=== PATIENT | female | born 1955 ===

== ENCOUNTER 2020-10-27 16:15 | Outpatient (REF) | payer OTHER, SELFPAY ==
--- NOTE | ~2020-10-27 | MM_ITS ---
EXAMINATION: MM SCREENING DIGITAL BREAST TOMOSYNTHESIS, BILATERAL CLINICAL INFORMATION: Screening. Asymptomatic. No known family history breast cancer. Age 65. Prior mammography over 25 years ago and no longer available. The lifetime risk of breast cancer based on the Tyrer-Cuzick Model is 3%. COMPARISON: None (current study represents new baseline exam). TECHNIQUE: Digital breast tomosynthesis is performed in both the craniocaudal and mediolateral oblique views along with computer-aided detection (CAD). Synthesized 2D images are generated from the tomosynthesis. FINDINGS: There are scattered areas of fibroglandular density (ACR BI-RADS breast composition Category b). There are no significant masses, abnormal calcifications, or other abnormalities. The axilla and skin contours are unremarkable. MM/MM tomosynthesis screening BI IMPRESSION: No mammographic evidence of malignancy. ASSESSMENT: BI-RADS 1: Negative RECOMMENDATION: Routine annual mammography screening. This patient's information was entered into a reminder system with a target due date for their next mammogram.
== END 2020-10-27 16:16 | disposition home or self-care (01) ==
LOC: HO.MAMMO 16:15
PROVIDERS: Visit Provider Internal Medicine
DX: Z12.31 Encounter for screening mammogram for malignant neoplasm of breast (principal)
CPT/HCPCS: 77063; 77067

== ENCOUNTER 2023-09-30 18:20 | Emergency (ER) | payer MEDICARE, SELFPAY ==
[2023-09-30 18:28] VITALS: BP 163/94; PULSE 118; RESP 16; TEMP 36.6; O2SAT 97; BMI 19.8
--- NOTE | 2023-09-30 18:28 | ED.GENADULT ---
HPI - General Adult General Chief complaint: General Medical Stated complaint: shaking,high Bp Time Seen by Provider: 09/30/23 22:03 History of Present Illness HPI narrative: The patient is a 68-year-old female with a history of Alzheimer's dementia. Today she seemed very anxious and at 1 point was shaking. She was also having hallucinations that her daughter was planning to hire someone to have her killed. Her blood pressure was checked and her systolic was 180. She asked to come to the hospital. Since she has been here she has been feeling much better. When I spoke to her she acknowledges that she was having hallucination when she was thinking that her daughter might be trying to arrange killing her. She has had no fever. No cough. She does not have any definite urinary symptoms. No abdominal pain. No nausea or vomiting. Related Data Previous Rx's ?Medication ?Instructions ?Recorded cephalexin 500 mg capsule 500 mg PO BID #10 caps 09/30/23 Allergies Allergy/AdvReac Type Severity Reaction Status Date / Time codeine Allergy Unknown Verified 09/30/23 18:29 Review of Systems Review of Systems: Yes all other systems are reviewed and are negative [facility] Social History Social History Smoked in Last 30 Days: No Use of substances other than those prescribed or required for medical reasons: No Advance Directives: No Advance Directives Information Provided: No Physical Exam ED Vital Signs: Vital Signs - 24 hr 09/30/23 18:28 09/30/23 21:22 09/30/23 22:49 Temperature 97.9 F 98.2 F Pulse Rate 118 H 109 H 99 Respiratory Rate 16 18 18 Blood Pressure 163/94 H 157/87 H 159/89 H Pulse Oximetry 97 98 98 Oxygen Delivery Method Room Air BMI result Body Mass Index 19.8 Const Other: The patient is awake and alert. She has a very healthy general appearance. She does not seem in any distress or acutely ill. HENMT Other: Face is symmetrical, mucous membranes moist Eyes Other: Pupils are round equal, conjunctivae clear Neck Other: No cervical adenopathy, no JVD Resp Effort & Inspection: normal respiratory effort Auscultation: clear to auscultation bilaterally Cardio Rate: regular rate Rhythm: regular rhythm Heart sounds: S1 normal heart sound present and S2 normal heart sound present GI Other: Abdomen is soft and nontender Skin Other: Skin is dry and unremarkable Neuro Other: The patient is awake and alert, face is symmetrical, eye movements intact, speech is clear, she moves her extremities normally. She has no focal findings. Extrem Other: No peripheral edema. Excellent pulses in the feet. Course Course Course Narrative: This is an RME: Additional HPI, ROS, PE not included below will be deferred to primary provider. Patient is a 68-year-old female presenting to emergency department for evaluation of feeling shaky, nausea, elevated blood pressure, palpitations, sudden onset upon awakening this morning. Feeling unsteady on her feet. Daughter reports that she has a history Alzheimer's, and has newly been experiencing hallucinations this week. Plan: Labs, EKG, orthostatic vital signs, urinalysis Medications Administered Discontinued Medications Generic Name Dose Route Start Last Admin Trade Name Freq PRN Reason Stop Dose Admin Cephalexin HCl 500 mg 09/30/23 22:20 09/30/23 22:41 Cephalexin 500 Mg Capsule PO 09/30/23 22:21 500 mg ONCE ONE Administration Medical Decision Making Medical Decision Making MDM Narrative: The patient is a 68-year-old woman with a history of Alzheimer's. Today she was apparently feeling dizzy, shaky, and nauseated. These symptoms seemed to have resolved and she looks entirely well here in the emergency department. She has apparently also had some hallucinations. Currently she does not seem to have any hallucinations in the emergency department and she seems to acknowledge that the hallucinations she has been experiencing earlier were in fact not real. Her medical workup in the emergency department is reassuring although her urinalysis is equivocal for a possible UTI. Since the patient has dementia and is not necessarily the world's most reliable historian I am not sure that her denial of urinary symptoms is reliable and will therefore treat her with cephalexin. The is at the bedside and seems comfortable with the plan. He seems comfortable taking her home. They should follow up with her PCP. Lab Data 09/30/23 18:40 09/30/23 18:40 Labs: Lab Results 09/30/23 Range/Units 18:40 WBC 8.1 (4.8-10.8) X10*3/uL RBC 4.68 (4.20-5.50) X10*6/uL Hgb 13.8 (12.0-16.0) g/dl Hct 41.8 (37.0-47.0) % MCV 89.3 (80.0-98.0) fL MCH 29.5 (27.0-33.0) pg MCHC 33.0 (31.0-35.0) g/dl RDW 12.6 (11.0-16.0) % Plt Count 413 H (160-400) X10*3/uL MPV 8.6 L (9.4-12.3) fL Immature Gran % (Auto) 0.2 (0.0-0.4) % Neut % (Auto) 59.5 (45-73) % Lymph % (Auto) 31.8 (20-40) % [place] % (Auto) 7.0 (2-11) % Eos % (Auto) 0.5 (0-4) % Baso % (Auto) 1.0 (0-2) % Lymph # (Auto) 2.6 (1.2-4.9) X10*3/uL [place] # (Auto) 0.6 (0.1-1.2) X10*3/uL Eos # (Auto) 0.0 (0.0-0.4) X10*3/uL Baso # (Auto) 0.1 (0.0-0.2) X10*3/uL Abs Immat Gran (auto) 0.02 (0.00-0.03) X10*3/uL Absolute Neuts (auto) 4.8 (2.0-8.3) x10*3/uL Absolute Nucleated RBC 0.000 (0.0-0.012) X10*3/uL Nucleated RBC % (auto) 0.0 (0.0-0.2) /100WBC Sodium 142 (135-145) mmol/L Potassium 3.9 (3.3-5.1) mmol/L Chloride 104 (96-108) mmol/L Carbon Dioxide 27 (22-29) mmol/L Anion Gap 15 (12-20) BUN 12 (9-16) mg/dL Creatinine 0.81 (0.5-1.4) mg/dL Estim Creat Clear Calc 46.4 Estimated GFR > 60 Random Glucose 166 H (60-115) mg/dL Calcium 9.6 (8.4-10.2) mg/dL Magnesium 2.1 (1.6-2.6) mg/dL Total Bilirubin 0.4 (0.0-1.0) mg/dL AST 18 (5-31) U/L ALT 12 (0-31) U/L Alkaline Phosphatase 94 (39-117) U/L Troponin I High Sens < 2.7 (<3.5-17.0) ng/L Total Protein 7.7 (6.5-8.0) g/dL Albumin 4.3 (3.5-5.0) g/dL Urine Color Dark Yellow Urine Appearance Clear Urine pH 5.5 (5.0-9.0) Ur Specific [place] >= 1.030 H (1.005-1.025) Urine Protein Trace (Neg-Trace) mg/dL Urine Glucose (UA) Negative (Negative) mg/dL Urine Ketones Negative (Negative) mg/dL Urine Blood Moderate (2+) H (Negative) Urine Nitrite Negative (Negative) Ur Leukocyte Esterase Trace H (Negative) Urine RBC >20 H (0-2) /HPF Urine WBC 11-20 H (0-5) /HPF Ur Squamous Epith Cells 0-2 (0-2) /HPF Urine Bacteria None Seen (None Seen) Hyaline Casts 0-2 (0-2) /LPF Influenza Type A (PCR) NEGATIVE (Negative) Influenza Type B (PCR) NEGATIVE (Negative) RSV RNA Qual (PCR) NEGATIVE (Negative) SARS-CoV-2 RNA (RT-PCR) NEGATIVE (Negative) Discharge Plan Discharge Clinical Impression: Shakiness, Hallucinations, Abnormal urinalysis Patient Disposition: Home, Self-Care Additional Instructions: Your testing in the emergency room today is reassuring from the point of view of any obviously dangerous process. Your urine test suggest the possibility that you might have a urinary tract infection. You have therefore been started on an antibiotic, cephalexin. Please take this antibiotic 2 times a day, approximately every 12 hours, for 5 days. Please follow-up soon with your regular doctor. Return to the emergency room if worse. Prescriptions: New cephalexin 500 mg capsule 500 mg PO BID Qty: 10 0RF Referrals: Chula Chand MD [Primary Care Provider] - (Hallucinations, possible UTI) Interventions: ED Discharge Assessment Last Done: 09/30/23 22:49 Discharge Date/Time: 09/30/23 22:50 Print Language: [place]an
[2023-09-30 18:46] LABS: MANUAL DIFF FLAG NO
[2023-09-30 18:49] LABS: Appearance Urine Clear; Color Urine Dark Yellow; Glucose Urine UA Negative (Negative); Leukocyte Esterase Urine Trace (Negative); Nitrite Urine Negative (Negative); PH 5.5 (5.0-9.0); Specific Gravity - Urine >= 1.030 (1.005-1.025); UMIC TRIGGER UACC YES; Urine Blood Moderate (2+) (Negative); Urine Ketones Negative (Negative); Urine Protein Trace mg/dL (Neg-Trace)
[2023-09-30 18:52] LABS: Basophils Absolute Auto 0.1 X10*3/uL (0.0-0.2); Eosinophils Percent Auto 0.5 % (0-4); Hematocrit 41.8 % (37.0-47.0); Hemoglobin 13.8 g/dl (12.0-16.0); Imm Gran Abs Auto 0.02 X10*3/uL (0.00-0.03); Imm Gran Pct Auto 0.2 % (0.0-0.4); Lymphocytes Absolute Auto 2.6 X10*3/uL (1.2-4.9); Lymphocytes Percent Auto 31.8 % (20-40); Mean Corpuscular Hemoglobin 29.5 pg (27.0-33.0); Mean Corpuscular Volume 89.3 fL (80.0-98.0); Mean Platelet Volume 8.6 fL (9.4-12.3); Monocytes Absolute Auto 0.6 X10*3/uL (0.1-1.2); Neutrophils Absolute Auto 4.8 x10*3/uL (2.0-8.3); Neutrophils Percent Auto 59.5 % (45-73); Platelet Count 413 X10*3/uL (160-400); Red Blood Count 4.68 X10*6/uL (4.20-5.50); Red Cell Distribution Width 12.6 % (11.0-16.0); White Blood Count 8.1 X10*3/uL (4.8-10.8)
[2023-09-30 18:54] LABS: Bacteria Urine None Seen (None Seen); Hyaline Casts Urine 0-2 /LPF (0-2); RBC Urine >20 /HPF (0-2); Squamous Epithelial Cell Urine 0-2 /HPF (0-2); UACC Culture Trigger YES
[2023-09-30 19:06] LABS: Alanine Aminotransferase 12 U/L (0-31); Albumin Level 4.3 g/dL (3.5-5.0); Alkaline Phosphatase 94 U/L (39-117); Anion Gap 15 (12-20); Aspartate Amino Transferase 18 U/L (5-31); Bilirubin Total 0.4 mg/dL (0.0-1.0); Blood Urea Nitrogen 12 mg/dL (9-16); Calcium 9.6 mg/dL (8.4-10.2); Carbon Dioxide 27 mmol/L (22-29); Chloride 104 mmol/L (96-108); Creatinine Clr Calc Pharmacy 46.4; Estimated Glomerular Filt Rate > 60; Glucose Random 166 mg/dL (60-115); Magnesium 2.1 mg/dL (1.6-2.6); Potassium 3.9 mmol/L (3.3-5.1); Sodium 142 mmol/L (135-145); Total Protein 7.7 g/dL (6.5-8.0)
[2023-09-30 19:15] LABS: Troponin-I High Sensitivity < 2.7 ng/L (<3.5-17.0)
[2023-09-30 19:27] LABS: Influenza A PCR NEGATIVE (Negative); Influenza B PCR NEGATIVE (Negative); Resp Syncy Virus RNA Qual PCR NEGATIVE (Negative); SARS COV2 PCR INHOUSE NEGATIVE (Negative)
[2023-09-30 21:22] VITALS: BP 157/87; PULSE 109; RESP 18; O2SAT 98
[2023-09-30] MEDS: cephALEXin 500 MG CAPSULE PO (22:41)
[2023-09-30 22:49] VITALS: BP 159/89; PULSE 99; RESP 18; TEMP 36.8; O2SAT 98
== END 2023-09-30 22:50 | disposition home or self-care (01) ==
PROVIDERS: Nurse Practitioner Family; Emergency Provider Emergency Medicine; PCP Internal Medicine
DX: G25.89 Other specified extrapyramidal and movement disorders (principal); R44.3 Hallucinations, unspecified; R82.90 Unspecified abnormal findings in urine; G30.9 Alzheimer's disease, unspecified; F02.80 Dementia in other diseases classified elsewhere, unspecified severity, without behavioral disturbance, psychotic disturbance, mood disturbance, and anxiety; Z03.818 Encounter for observation for suspected exposure to other biological agents ruled out
CPT/HCPCS: 0241U; 80053; 81001; 83735; 84484; 85025; 87086; 99283; 99284

== ENCOUNTER 2023-10-31 14:15 | Outpatient (AMB) | payer MEDICARE, SELFPAY ==
--- NOTE | 2023-10-31 14:49 | MHC.PC.OV ---
Intake Visit Reasons: Establish care/ Discharge F/U Intake Note: New patient visit. Dipak Scott Visiting nurse referral. Licensed Optician Required: No Accompanied by: Daughter Allergies codeine Allergy (Verified 10/31/23 14:50) Unknown Tobacco use date assessed: 10/31/23 Fall risk assessment: 1 Fall in past year Last assessed Fall Risk: 10/31/23 Dental Screening Dental Screen Date: 10/31/23 Did you have a dental visit in the last 12 months?: No Did you have a dental problem in the last 6 months where you did not have access to dental care?: No Was dental information given to patient?: Yes PFSH Family History (Updated 10/31/23 @ 14:57 by Nasrin Christy CMA) Mother Alzheimer's dementia Sister Alzheimer's dementia Other FH: mental illness Substance abuse Assessment and Plan Assessment & Plan Medications: Discontinued cephalexin Discontinued Reason: Patient Completed Course 500 mg PO BID 10 caps 0RF Coding
[2023-10-31 14:58] VITALS: BP 118/68; PULSE 78; RESP 16; TEMP 36.9; O2SAT 98; BMI 21.0
--- NOTE | 2023-10-31 14:58 | MHC.PC.OV ---
Vital Signs 10/31/23 14:58 Height 5 ft Weight 107 lb 8 oz BMI 21.0 BP 118/68 Blood Pressure Location Lt brachial Position Sitting Respiration 16 Pulse 78 Pulse Source Pulse Oximeter Temp 98.4 F Temp Source Oral Pulse Oximetry (%) 98 Oxygen Delivery Method Room Air Intake Visit Reasons: Establish care/ Discharge F/U Intake Note: New patient visit. Restorative Care Technician Required: No Accompanied by: Daughter Allergies codeine Allergy (Verified 10/31/23 14:50) Unknown Medication List - Last Reconciled 10/31/23 by Magdalena Mcmillan MD benztropine 0.5 mg PO DAILY escitalopram oxalate 10 mg PO DAILY olanzapine 20 mg PO DAILY trazodone 100 mg PO BEDTIME PRN Tobacco use date assessed: 10/31/23 Fall risk assessment: 1 Fall in past year Last assessed Fall Risk: 10/31/23 Dental Screening Dental Screen Date: 10/31/23 Did you have a dental visit in the last 12 months?: No Did you have a dental problem in the last 6 months where you did not have access to dental care?: No Was dental information given to patient?: Yes HPI HPI Comments History of Present Illness Details The patient is a 68 year old female with past medical histor of Alzheimer's presenting to establish care and for ER follow up She was evaluated in [facility] ED on 09/30/23. She presented c/o dizzy, shaky, and nauseated. Did endorse some recent hallucinations Her medical workup in the emergency department-UA possible UTI placed on cephalexin. Discharged to [facility]. Discharged 10/28 -on lexapro, zyprexa, trazodone and cogentin. Has follow up with [facility] 11/19/2023 for psych med provider. Reports doing well but sleepy. Denies recurrent UTI symptoms. [facility] Medical History (Updated 11/04/23 @ 11:49 by Magdalena Mcmillan MD) Alzheimer's dementia Depression Anxiety Family History (Updated 10/31/23 @ 16:41 by Nasrin Christy CMA) Mother Alzheimer's dementia HTN (hypertension) Sister Alzheimer's dementia Father Cardiovascular disease Other FH: mental illness Substance abuse Social History (Updated 10/31/23 @ 14:56 by Nasrin Christy CMA) Housing: House Patient Tobacco Use Status: Never used Tobacco e-Cigarette/Vaping Use: Never Used Second Hand Smoke Exposure: No service: No Current occupational status: retired Cognitive needs: Yes (Alzheimers) Hearing needs: No Vision needs: Yes Questionnaire PHQ-9 Over the last 2 weeks, how often have you been bothered by any of the following problems? 1. Little interest or pleasure in doing things: nearly every day 2. Feeling down, depressed, or hopeless: nearly every day 3. Trouble falling or staying asleep, or sleeping too much: nearly every day 4. Feeling tired or having little energy: nearly every day 5. Poor appetite or overeating: nearly every day 6. Feeling bad about yourself - or that you are a failure or have let yourself or your family down: nearly every day 7. Trouble concentrating on things, such as reading the newspaper or watching television: nearly every day 8. Moving or speaking so slowly that other people could have noticed. Or the opposite - being so fidgety or restless that you have been moving around a lot more than usual: nearly every day 9. Thoughts that you would be better off or of hurting yourself in some way: not at all Total score: 24 Depression Screening Interpretation: Positive Depression Screening Follow-up: Existing condition Depression Screening Done: Yes 56779 - PHQ-9 Billing: Yes Source: Developed by Drs. Rob Gresham, Maddie Dean, Leonard Javier and colleagues, with an educational darrian from [employer]. Thrive Questionnaire Date Thrive assessed: 10/31/23 I am a: Patient What is your living situation today?: I have a steady place to live Within the past 12 months, did the food you bought not last and you didn't have the money to get more?: Never true Within the past 12 months, did you worry whether your food would run out before you got money to buy more?: Never true Do you have trouble paying for medicines?: No Do you have trouble getting transportation to medical appointments?: No Do you have trouble paying your heating and electricity bill?: No Do you have trouble taking care of your child, family member or friend?: No Do you have trouble with day-to-day activities such as bathing, preparing meals, shopping, managing finances, etc.?: Yes Are you currently unemployed and looking for a job?: No Are you interested in more education?: No Please select the resources that you would like help with: Daily support Currently or been in a relationship where the following occur: no concerns reported THRIVE Score: 0 FEDERICO-7 AMB Questionnaire FEDERICO-7 Date FEDERICO - 7 assessed: 10/31/23 Feeling nervous, anxious, or on edge: 3 = Nearly every day Not being able to stop or control worryin = Nearly every day Worrying too much about different things: 3 = Nearly every day Trouble relaxin = Nearly every day Being so restless that it is hard to sit still: 3 = Nearly every day Becoming easily annoyed or irritable: 3 = Nearly every day Feeling afraid as if something awful might happen: 3 = Nearly every day Total FEDERICO-7 score (0-4 normal; 5-9 mild; 10-14 moderate; 15-21 severe): 21 Source: Developed by Drs. Rob Gresham, Maddie Dean, Leonard Javier and colleagues, with an educational darrian from [employer]. FEDERICO-7 Assessment Billing FEDERICO-7 Assessment Tool: FEDERICO-7 Assessment 55098 Review of Systems Const Details: see HPI Physical exam (Primary Care) Vital Signs: Last Vital Signs Temp 98.4 F 10/31/23 14:58 Pulse 78 10/31/23 14:58 Resp 16 10/31/23 14:58 BP 118/68 10/31/23 14:58 Pulse Ox 98 10/31/23 14:58 Oxygen Delivery Method Room Air 10/31/23 14:58 PHYSICAL EXAM: GENERAL: Alert and oriented x 3. NAD EYES: EOMI. Anicteric. HENT: Moist mucous membranes. No scleral icterus. No cervical lymphadenopathy. LUNGS: Clear to auscultation bilaterally. CARDIOVASCULAR: Regular rate and rhythm. No murmur. No JVD. ABDOMEN: Soft, non-tender +bs EXTREMITIES: No edema. Non-tender. SKIN: No rashes or lesions. Warm. NEUROLOGIC: No focal neurological deficits. CN II-XII grossly intact PSYCHIATRIC: Cooperative. Appropriate mood and affect BMI result Body Mass Index 21.0 Tobacco/Smoking Status: Tobacco use Status Tobacco use date assessed 10/31/23 10/31/23 15:06 Patient Tobacco Use Status Never used Tobacco 10/31/23 15:06 e-Cigarette/Vaping Use Never Used 10/31/23 15:06 PHQ-9: PHQ-9 Score PHQ-9: Total score 10/31/23 16:40 Depression Screening Interpretation: Positive Depression Screening Follow-up: Existing condition Thrive Assessment: Date of Thrive Assessment Date Thrive assessed 10/31/23 10/31/23 16:27 Currently or been in a relationship where the following occur: no concerns reported Const Other: PHYSICAL EXAM: GENERAL: Alert and oriented EYES: EOMI. Anicteric. HENT: Moist mucous membranes. . LUNGS: Clear to auscultation bilaterally. CARDIOVASCULAR: Regular rate and rhythm. ABDOMEN: Soft, non-tender +bs EXTREMITIES: No edema. Non-tender. SKIN: No rashes or lesions. Warm. NEUROLOGIC: No focal neurological deficits. PSYCHIATRIC: Cooperative. Results AMB Hemoglobin A1c AMB Hemoglobin A1c 5.3 % Last Edit by Nasrin Christy CMA on 10/31/23 16:35 Results Reviewed Results Reviewed: Laboratory Last Values Hgb A1c (Clinic) 5.3 % (4.0-6.0) 10/31/23 16:33 Assessment and Plan Assessment & Plan (1) Dementia: Comment: stable. continue current meds. May consider aricept Code(s): F03.90 - Unspecified dementia, unspecified severity, without behavioral disturbance, psychotic disturbance, mood disturbance, and anxiety Qualifiers: Alzheimer's disease onset: late onset Dementia behavioral or psychological symptom: unspecified whether behavioral, psychotic, or mood disturbance or anxiety Dementia severity: unspecified severity Dementia type: Alzheimer's Qualified Code(s): G30.1 - Alzheimer's disease with late onset; F02.80 - Dementia in other diseases classified elsewhere, unspecified severity, without behavioral disturbance, psychotic disturbance, mood disturbance, and anxiety (2) Depression, major, in partial remission: Code(s): F32.4 - Major depressive disorder, single episode, in partial remission Qualifiers: Major depression recurrence: recurrent Qualified Code(s): F33.41 - Major depressive disorder, recurrent, in partial remission (3) Psychosis: Code(s): F29 - Unspecified psychosis not due to a substance or known physiological condition Qualifiers: Psychosis type: brief psychotic disorder Qualified Code(s): F23 - Brief psychotic disorder (4) Elevated glucose: Code(s): R73.09 - Other abnormal glucose (5) Prediabetes: Code(s): R73.03 - Prediabetes Plan: monitor labs. Orders: Orders AMB Hemoglobin A1c 10/31/23 R73.03 - Prediabetes Referrals Neurology Referral F02.80 - Dementia in other diseases classified elsewhere, unspecified severity, without behavioral disturbance, psychotic disturbance, mood disturbance, and anxiety, F29 - Unspecified psychosis not due to a substance or known physiological condition, F32.4 - Major depressive disorder, single episode, in partial remission, G30.1 - Alzheimer's disease with late onset Medications: New benztropine 0.5 mg PO DAILY 90 tabs 3RF Discontinued cephalexin Discontinued Reason: Patient Completed Course 500 mg PO BID 10 caps 0RF Coding Level of Care Code Tele New Pt Level 4 (05231) Complex EM visit Add On G2211 Diagnoses Late onset Alzheimer dementia, unspecified dementia severity, unspecified whether behavioral, psychotic, or mood disturbance or anxiety G30.1; F02.80 Alzheimer's disease onset: late onset Dementia behavioral or psychological symptom: unspecified whether behavioral, psychotic, or mood disturbance or anxiety Dementia severity: unspecified severity Dementia type: Alzheimer's Recurrent major depressive disorder, in partial remission F33.41 Major depression recurrence: recurrent 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
== END 2023-10-31 15:42 | disposition home or self-care (01) ==
PROVIDERS: PCP Internal Medicine; Visit Provider Internal Medicine
DX: G30.1 Alzheimer's disease with late onset (principal); F02.80 Dementia in other diseases classified elsewhere, unspecified severity, without behavioral disturbance, psychotic disturbance, mood disturbance, and anxiety; F33.41 Major depressive disorder, recurrent, in partial remission; F23 Brief psychotic disorder; R73.09 Other abnormal glucose; R73.03 Prediabetes
CPT/HCPCS: 83036; 99204; G2211

== ENCOUNTER 2023-12-05 12:29 | Outpatient (AMB) | payer MEDICARE, SELFPAY ==
--- NOTE | 2023-12-05 12:37 | MHC.PC.OV ---
Vital Signs 12/05/23 12:47 Weight 114 lb 8 oz BP 118/70 Blood Pressure Location Rt brachial Position Sitting Pulse 85 Pulse Source Pulse Oximeter Pulse Oximetry (%) 98 Oxygen Delivery Method Room Air Intake Visit Reasons: est/ uti Intake Note: patient here c/o UTI. Supervisor Phosphatic Fertilizer Required: No Accompanied by: Daughter Allergies codeine Allergy (Verified 12/05/23 12:45) Unknown Medication List - Last Reconciled 12/05/23 by Georgia Sandoval PA-C benztropine 0.5 mg PO DAILY escitalopram oxalate 10 mg PO DAILY olanzapine 20 mg PO DAILY trazodone 100 mg PO BEDTIME PRN Tobacco use date assessed: 10/31/23 Dental Screening Dental Screen Date: 10/31/23 HPI est/ uti HPI Details Patient is a 68-year-old female with a significant past medical history of dementia, anxiety and depression with hallucinations presenting today for a possible UTI. She is accompanied today by her daughter who states that she believes her mother has a UTI. Her auditory hallucinations have been worse recently. She is asymptomatic otherwise. Patient often forgets to drink enough water. Her medications are unchanged currently and she has been overall stable since her hospitalization this spring. No fever, chills or flank pain. No abdominal pain, nausea or vomiting. No change in appetite. Daughter did not at home tests and states that no looked like she had a UTI. [facility] Medical History (Updated 11/04/23 @ 11:49 by Magdalena Mcmillan MD) Alzheimer's dementia Depression Anxiety Family History (Updated 10/31/23 @ 16:41 by Nasrin Christy CMA) Mother Alzheimer's dementia HTN (hypertension) Sister Alzheimer's dementia Father Cardiovascular disease Other FH: mental illness Substance abuse Social History (Updated 10/31/23 @ 14:56 by Nasrin Christy CMA) Housing: House Patient Tobacco Use Status: Never used Tobacco e-Cigarette/Vaping Use: Never Used Second Hand Smoke Exposure: No service: No Current occupational status: retired Cognitive needs: Yes (Alzheimers) Hearing needs: No Vision needs: Yes Questionnaire Thrive Questionnaire Date Thrive assessed: 10/31/23 FEDERICO-7 AMB Questionnaire FEDERICO-7 Date FEDERICO - 7 assessed: 10/31/23 Source: Developed by Drs. Rob Gresham, Maddie Dean, Leonard Javier and colleagues, with an educational darrian from [employer]. Physical exam (Primary Care) Vital Signs: Last Vital Signs Pulse 85 12/05/23 12:47 BP 118/70 12/05/23 12:47 Pulse Ox 98 12/05/23 12:47 Oxygen Delivery Method Room Air 12/05/23 12:47 Tobacco/Smoking Status: Tobacco use Status Tobacco use date assessed 10/31/23 12/05/23 12:41 Patient Tobacco Use Status Never used Tobacco 12/05/23 12:41 e-Cigarette/Vaping Use Never Used 12/05/23 12:41 Thrive Assessment: Date of Thrive Assessment Date Thrive assessed 10/31/23 12/05/23 12:41 HENMT Ears: hearing grossly normal bilaterally Neck Thyroid: Thyroid normal Lymphatic: no lymphadenopathy noted Resp Auscultation: clear to auscultation bilaterally Cardio Rate: regular rate Rhythm: regular rhythm Heart sounds: S1 normal heart sound present and S2 normal heart sound present GI Inspection: Yes normal to inspection Palpation (GI): Soft to palpation and Other GI palpation findings present (nontender, no cva tenderness) Auscultation: normoactive bowel sounds Rectal Exam - Female: deferred Skin General skin exam: no rashes or lesions noted Assessment and Plan Assessment & Plan (1) Dementia: Comment: stable. continue current meds. May consider aricept Code(s): F03.90 - Unspecified dementia, unspecified severity, without behavioral disturbance, psychotic disturbance, mood disturbance, and anxiety Qualifiers: Dementia type: Alzheimer's Alzheimer's disease onset: late onset Dementia severity: unspecified severity Dementia behavioral or psychological symptom: unspecified whether behavioral, psychotic, or mood disturbance or anxiety Qualified Code(s): G30.1 - Alzheimer's disease with late onset; F02.80 - Dementia in other diseases classified elsewhere, unspecified severity, without behavioral disturbance, psychotic disturbance, mood disturbance, and anxiety (2) UTI (urinary tract infection): Code(s): N39.0 - Urinary tract infection, site not specified Plan: Urine dip in office is consistent with a UTI. We will start Macrobid. Discussed risks and benefits and adverse effects of this medication. They will follow up if anything worsens or changes. Culture ordered. Patient understands and agrees with the plan. Orders: Orders Urine Culture Today N39.0 - Urinary tract infection, site not specified Medications: New nitrofurantoin monohyd/m-cryst 100 mg (Macrobid) must administer with a meal/food 100 mg PO Q12H 7 days 14 caps 0RF Coding Level of Care Code Est Pt Level 4 (20105) Diagnoses Late onset Alzheimer dementia, unspecified dementia severity, unspecified whether behavioral, psychotic, or mood disturbance or anxiety G30.1; F02.80 Dementia type: Alzheimer's Alzheimer's disease onset: late onset Dementia severity: unspecified severity Dementia behavioral or psychological symptom: unspecified whether behavioral, psychotic, or mood disturbance or anxiety UTI (urinary tract infection) N39.0
[2023-12-05 12:47] VITALS: BP 118/70; PULSE 85; O2SAT 98
== END 2023-12-05 13:11 | disposition home or self-care (01) ==
PROVIDERS: PCP Internal Medicine; Visit Provider Physician Assistant
DX: G30.1 Alzheimer's disease with late onset (principal); F02.80 Dementia in other diseases classified elsewhere, unspecified severity, without behavioral disturbance, psychotic disturbance, mood disturbance, and anxiety; N39.0 Urinary tract infection, site not specified
CPT/HCPCS: 81002; 99214

== ENCOUNTER 2023-12-05 18:45 | Outpatient (REF) | payer MEDICARE, SELFPAY | END 2023-12-05 18:46 | disposition home or self-care (01) | LOC: HO.LNP 18:45 | PROVIDERS: Visit Provider Physician Assistant | DX: N39.0 Urinary tract infection, site not specified (principal) | CPT/HCPCS: 87086 ==

== ENCOUNTER 2024-04-21 13:42 | Outpatient (AMB) | payer MEDICARE, SELFPAY ==
--- NOTE | 2024-04-21 14:01 | MHC.PC.OV ---
Vital Signs 04/21/24 14:04 Height 5 ft Weight 123 lb BMI 24.0 BP 116/78 Blood Pressure Location Lt brachial Position Sitting Pulse 96 Pulse Source Pulse Oximeter Temp 98.3 F Temp Source Oral Pulse Oximetry (%) 98 Oxygen Delivery Method Room Air Intake Visit Reasons: Urinary tract infection Intake Note: UTI. Has a UTI trish at home that came back positive. Has been having frequent uti's. Last was 03/13 and was presctibed Cefdinir 125 mg. Allergies codeine Allergy (Verified 05/07/24 12:10) Unknown Tobacco use date assessed: 10/31/23 Dental Screening Dental Screen Date: 10/31/23 HPI HPI Comments History of Present Illness Details The patient is a 69 year old female with past medical history of Alzheimer's presenting for dysuria She reports dysuria, increased frequency, urgency. She has had frequent UTIs. Complains of difficulty sleeping, depression. Experiencing ongoing memory issues. Says she is not seeing psych or neurology. [facility] [place]. She presented c/o dizzy, shaky, and nauseated. Did endorse some recent hallucinations Her medical workup in the emergency department-UA possible UTI placed on cephalexin. Discharged to [facility]. Discharged 10/28 -on lexapro, zyprexa, trazodone and cogentin. Has follow up with [facility] 11/19/2023 for psych med provider. ROS see HPI PHYSICAL EXAM: GENERAL: Alert and oriented x 3. NAD EYES: EOMI. Anicteric. HENT: Moist mucous membranes. No scleral icterus. No cervical lymphadenopathy. LUNGS: Clear to auscultation bilaterally. CARDIOVASCULAR: Regular rate and rhythm. No murmur. No JVD. ABDOMEN: Soft, non-tender +bs EXTREMITIES: No edema. Non-tender. SKIN: No rashes or lesions. Warm. NEUROLOGIC: Oriented to place situation, but some cognitive dysfunction is apparent PSYCHIATRIC: Cooperative. Appropriate mood and affect [facility] Medical History (Updated 05/07/24 @ 13:19 by Gorge Fischer) Alzheimer's dementia Depression Anxiety Family History (Updated 10/31/23 @ 16:41 by Nasrin Christy [facility]) Mother Alzheimer's dementia HTN (hypertension) Sister Alzheimer's dementia Father Cardiovascular disease Other FH: mental illness Substance abuse Social History (Updated 10/31/23 @ 14:56 by Nasrin Christy CMA) Housing: House Patient Tobacco Use Status: Never used Tobacco e-Cigarette/Vaping Use: Never Used Second Hand Smoke Exposure: No service: No Current occupational status: retired Cognitive needs: Yes (Alzheimers) Hearing needs: No Vision needs: Yes Questionnaire Thrive Questionnaire Date Thrive assessed: 10/31/23 I am a: Patient What is your living situation today?: I have a steady place to live Within the past 12 months, did the food you bought not last and you didn't have the money to get more?: I choose not to answer this question Within the past 12 months, did you worry whether your food would run out before you got money to buy more?: I choose not to answer this question Do you have trouble paying for medicines?: I choose not to answer this question Do you have trouble getting transportation to medical appointments?: I choose not to answer this question Do you have trouble paying your heating and electricity bill?: I choose not to answer this question Do you have trouble taking care of your child, family member or friend?: I choose not to answer this question Do you have trouble with day-to-day activities such as bathing, preparing meals, shopping, managing finances, etc.?: I choose not to answer this question Are you currently unemployed and looking for a job?: I choose not to answer this question Are you interested in more education?: I choose not to answer this question Please select the resources that you would like help with: Care for elder or disabled and Daily support Currently or been in a relationship where the following occur: I choose not to answer THRIVE Score: 0 AUDIT C Alcohol Use Questionnaire (AUDIT-C) 1. How often do you have a drink containing alcohol?: Never Total Score: 0 FEDERICO-7 AMB Questionnaire FEDERICO-7 Date FEDERICO - 7 assessed: 10/31/23 Feeling nervous, anxious, or on edge: 1 = Several days Not being able to stop or control worryin = Several days Worrying too much about different things: 1 = Several days Trouble relaxin = Several days Being so restless that it is hard to sit still: 1 = Several days Becoming easily annoyed or irritable: 1 = Several days Feeling afraid as if something awful might happen: 1 = Several days Total FEDERICO-7 score (0-4 normal; 5-9 mild; 10-14 moderate; 15-21 severe): 7 Source: Developed by Drs. Rob Gresham, Maddie Dean, Leonard Javier and colleagues, with an educational darrian from [employer]. Physical exam (Primary Care) Vital Signs: Last Vital Signs Temp 98.3 F 04/21/24 14:04 Pulse 96 04/21/24 14:04 BP 116/78 04/21/24 14:04 Pulse Ox 98 04/21/24 14:04 Oxygen Delivery Method Room Air 04/21/24 14:04 BMI result Body Mass Index 24.0 Tobacco/Smoking Status: Tobacco use Status Tobacco use date assessed 10/31/23 04/21/24 14:05 Patient Tobacco Use Status Never used Tobacco 04/21/24 14:05 e-Cigarette/Vaping Use Never Used 04/21/24 14:05 Thrive Assessment: Date of Thrive Assessment Date Thrive assessed 10/31/23 04/21/24 14:05 Currently or been in a relationship where the following occur: I choose not to answer Coding Level of Care Code Est Pt Level 4 (21890) Diagnoses Recurrent UTI N39.0 Recurrent major depressive disorder, in partial remission F33.41 Major depression recurrence: recurrent Late onset Alzheimer dementia, unspecified dementia severity, unspecified whether behavioral, psychotic, or mood disturbance or anxiety G30.1; F02.80 Dementia type: Alzheimer's Alzheimer's disease onset: late onset Dementia severity: unspecified severity Dementia behavioral or psychological symptom: unspecified whether behavioral, psychotic, or mood disturbance or anxiety Assessment & Plan Assessment & Plan (1) Recurrent UTI: Code(s): N39.0 - Urinary tract infection, site not specified Category: Medical Plan: Patient unable to produce urine sample as she suffered some incontinence in the waiting room. Cephalexin ordered Patient has a referral to urology iin place (2) Depression, major, in partial remission: Code(s): F32.4 - Major depressive disorder, single episode, in partial remission Category: Medical Qualifiers: Major depression recurrence: recurrent Qualified Code(s): F33.41 - Major depressive disorder, recurrent, in partial remission Plan: Continue current medications Unclear if current has psych provider (3) Dementia: Comment: stable. continue current meds. May consider aricept Code(s): F03.90 - Unspecified dementia, unspecified severity, without behavioral disturbance, psychotic disturbance, mood disturbance, and anxiety Category: Medical Qualifiers: Dementia type: Alzheimer's Alzheimer's disease onset: late onset Dementia severity: unspecified severity Dementia behavioral or psychological symptom: unspecified whether behavioral, psychotic, or mood disturbance or anxiety Qualified Code(s): G30.1 - Alzheimer's disease with late onset; F02.80 - Dementia in other diseases classified elsewhere, unspecified severity, without behavioral disturbance, psychotic disturbance, mood disturbance, and anxiety Plan: Referral to neurology placed Continue current medications Medications: New cephalexin 500 mg (10 mL) PO QID 280 mL 0RF 7 days
[2024-04-21 14:04] VITALS: BP 116/78; PULSE 96; TEMP 36.8; O2SAT 98; BMI 24.0
== END 2024-04-21 14:29 | disposition home or self-care (01) ==
LOC: HO.HMCFM 13:52
PROVIDERS: PCP Internal Medicine; Visit Provider Internal Medicine
DX: N39.0 Urinary tract infection, site not specified (principal); F33.41 Major depressive disorder, recurrent, in partial remission; G30.1 Alzheimer's disease with late onset; F02.80 Dementia in other diseases classified elsewhere, unspecified severity, without behavioral disturbance, psychotic disturbance, mood disturbance, and anxiety

== ENCOUNTER → 2024-04-21 13:42 | Outpatient (BNVA) | payer MEDICARE, SELFPAY | PROVIDERS: PCP Internal Medicine; Visit Provider Internal Medicine | DX: N39.0 Urinary tract infection, site not specified (principal); F33.41 Major depressive disorder, recurrent, in partial remission; G30.1 Alzheimer's disease with late onset; F02.80 Dementia in other diseases classified elsewhere, unspecified severity, without behavioral disturbance, psychotic disturbance, mood disturbance, and anxiety | CPT/HCPCS: 99212 ==

== ENCOUNTER 2024-04-23 17:44 | Outpatient (REF) | payer MEDICARE, SELFPAY ==
[2024-04-23 18:26] LABS: Appearance Urine Clear; Color Urine Yellow; Glucose Urine UA Negative (Negative); Leukocyte Esterase Urine Moderate (2+) (Negative); Nitrite Urine Negative (Negative); PH 5.5 (5.0-9.0); Specific Gravity - Urine 1.015 (1.005-1.025); UMIC TRIGGER UACC YES; Urine Blood Small (1+) (Negative); Urine Ketones Negative (Negative); Urine Protein Negative (Neg-Trace)
[2024-04-23 18:35] LABS: Bacteria Urine Trace (None Seen); Hyaline Casts Urine 0-2 /LPF (0-2); RBC Urine 0-2 /HPF (0-2); Squamous Epithelial Cell Urine 0-2 /HPF (0-2); UACC Culture Trigger YES
== END 2024-04-23 17:45 | disposition home or self-care (01) ==
LOC: HO.HHCLNP 17:44
PROVIDERS: Visit Provider Internal Medicine
DX: R30.0 Dysuria (principal)
CPT/HCPCS: 81001; 87086

== ENCOUNTER 2024-05-07 11:34 | Outpatient (AMB) | payer MEDICARE, SELFPAY ==
--- NOTE | 2024-05-07 12:10 | A.OFFPC_ITS ---
Vital Signs 05/07/24 12:11 Height 5 ft Weight 125 lb 4 oz BMI 24.5 BP 106/66 Blood Pressure Location Rt brachial Position Sitting Respiration 16 Pulse 105 H Pulse Source Pulse Oximeter Temp 97.9 F Temp Source Oral Pulse Oximetry (%) 95 Oxygen Delivery Method Room Air Intake Visit Reasons: Extended exam Intake Note: Extended Exam Allergies codeine Allergy (Verified 05/07/24 12:10) Unknown Tobacco use date assessed: 10/31/23 Dental Screening Dental Screen Date: 10/31/23 HPI Extended exam HPI Details Patient ?of?Dr.?O'Pop?w/?history?of?Alzheimer's?dementia?and?recent?emergency?departmen t?visit?for?urinary?tract?infectionpresents?for?extended?exam. 69 y/o female presents for an extended e xam with f/u labs and health maintenance. No recent labs to review. Has not seen a urologist for recurrent UTIs. Notes UTI has started in September. They report worsened mental status changes. They also report tremors. Reports dry eyes. Reports difficulty swallowing. [facility] Medical History (Updated 05/07/24 @ 13:19 by Gorge Fischer) Alzheimer's dementia Depression Anxiety Family History (Updated 10/31/23 @ 16:41 by Nasrin Christy CMA) Mother Alzheimer's dementia HTN (hypertension) Sister Alzheimer's dementia Father Cardiovascular disease Other FH: mental illness Substance abuse Social History (Updated 10/31/23 @ 14:56 by Nasrin Christy CMA) Housing: House Patient Tobacco Use Status: Never used Tobacco e-Cigarette/Vaping Use: Never Used Second Hand Smoke Exposure: No service: No Current occupational status: retired Cognitive needs: Yes (Alzheimers) Hearing needs: No Vision needs: Yes Questionnaire Thrive Questionnaire Date Thrive assessed: 04/21/24 I am a: Patient What is your living situation today?: I have a steady place to live Within the past 12 months, did the food you bought not last and you didn't have the money to get more?: I choose not to answer this question Within the past 12 months, did you worry whether your food would run out before you got money to buy more?: I choose not to answer this question Do you have trouble paying for medicines?: I choose not to answer this question Do you have trouble getting transportation to medical appointments?: I choose not to answer this question Do you have trouble paying your heating and electricity bill?: I choose not to answer this question Do you have trouble taking care of your child, family member or friend?: I choose not to answer this question Do you have trouble with day-to-day activities such as bathing, preparing meals, shopping, managing finances, etc.?: I choose not to answer this question Are you currently unemployed and looking for a job?: I choose not to answer this question Are you interested in more education?: I choose not to answer this question Currently or been in a relationship where the following occur: I choose not to answer THRIVE Score: 0 FEDERICO-7 AMB Questionnaire FEDERICO-7 Date FEDERICO - 7 assessed: 10/31/23 Source: Developed by Drs. Rob Gresham, Maddie Dean, Leonard Javier and colleagues, with an educational darrian from [employer]. Review of Systems Const Denies chills, Denies fatigue, Denies fever(s), Denies headache(s) and Denies weakness Eyes Reports dry eyes ENT Reports dysphagia, Denies dizziness, Denies headache(s), Denies hearing loss, Denies nasal congestion, Denies sinus pain, Denies sinus pressure and Denies sore throat Card Denies chest pain, Denies lightheadedness, Denies dyspnea and Denies other (palpitations) Resp Denies cough, Denies dyspnea and Denies wheezing GI Denies abdominal pain, Denies melena, Denies hematochezia, Denies change in bowel habits, Reports dysphagia, Denies dyspepsia and Denies nausea Denies hematuria and Denies dysuria Musc Denies myalgias, Denies arthralgias, Denies numbness and Denies tingling Skin/Breast Denies rash, Denies unusual bruising and Denies wounds Neuro Details: Tremor Denies dizziness, Denies headache(s), Denies memory loss, Denies numbness, Denies Sensory deficit (Neuro), Denies tingling and Denies weakness Psych Denies anxiety, Denies depression and Denies memory loss Endo Denies cold intolerance, Denies fatigue, Denies heat intolerance, Denies polydipsia and Denies polyuria Rajiv/Lymph Denies easy bleeding and Denies easy bruising Aller/Immun Denies wheezing Physical exam (Primary Care) Vital Signs: Last Vital Signs Temp 97.9 F 05/07/24 12:11 Pulse 105 H 05/07/24 12:11 Resp 16 05/07/24 12:11 BP 106/66 05/07/24 12:11 Pulse Ox 95 05/07/24 12:11 Oxygen Delivery Method Room Air 05/07/24 12:11 BMI result Body Mass Index 24.5 Tobacco/Smoking Status: Tobacco use Status Tobacco use date assessed 10/31/23 05/07/24 12:16 Patient Tobacco Use Status Never used Tobacco 05/07/24 12:16 e-Cigarette/Vaping Use Never Used 05/07/24 12:16 Thrive Assessment: Date of Thrive Assessment Date Thrive assessed 04/21/24 05/07/24 12:16 Currently or been in a relationship where the following occur: I choose not to answer Const General: no acute distress, well developed, alert and awake Nutritional Appearance: well nourished Orientation/consciousness: No patient oriented x3 HENMT Head: Yes normocephalic and Yes atraumatic Ears: hearing grossly normal bilaterally and TM's normal bilaterally General nose exam: Normal external nose present and Normal nares present Mouth: Normal oral and palatal mucosa present and moist mucous membranes Teeth and gingiva: dentition normal Throat: Yes posterior oropharynx normal Eyes General: appearance normal, both eyes and all related structures Pupils: Equal, round and reactive pupils present and Pupil accommodation reflex normal EOM: EOMs intact bilaterally Neck Neck: Yes normal visual inspection, Yes no lymphadenopathy and Yes trachea midline Thyroid: Thyroid normal Carotids: no bruits Lymphatic: no lymphadenopathy noted Chest Chest palpation & inspection: normal inspection of the chest Resp Effort & Inspection: normal respiratory effort Auscultation: clear to auscultation bilaterally Cardio Rate: regular rate Rhythm: regular rhythm Heart sounds: S1 normal heart sound present, S2 normal heart sound present, no gallops, no murmurs and no rubs Bruits: no abdominal aortic bruits and no carotid bruits GI Palpation (GI): No Abdominal aortic bruit present, Soft to palpation, nontender, No hepatosplenomegaly present and No Rebound tenderness present Auscultation: normal bowel sounds General: Yes no CVA tenderness Back/Spine/Pelvis Back: no CVA tenderness Cervical Spine: cervical ROM normal and No Cervical spine tenderness Thoracic/Lumbar Spine: thoraco-lumbar ROM normal, No pain with thoraco-lumbar ROM, No thoracic spinal tenderness and No lumbar spinal tenderness Skin Lesions: no lesions Rashes: no rashes Trauma: no lacerations or abrasions Wounds: no wounds Nails: normal Neuro Other: Get up and go test about 12 seconds. Mild unsteadiness. Inability to reiterate no ifs ands or buts. Unablr General: No patient oriented x3 Cranial nerves: Yes Equal, round and reactive pupils present Cognition (Neuro): abnormal cognition Gait exam (Neuro): gait abnormal (mildly unsteady gait ) Motor exam (neuro): 5/5 motor strength present throughout Sensory Exam: No Sensory deficit (Neuro) Deep tendon reflexes (DTR's): Right patellar reflex intensity grade: 2+ and Left patellar reflex intensity grade: 2+ Extrem General: Yes normal to inspection and No edema Psych Other: Inability to reiterate no ifs ands or buts. Unable to recall any words on 3 words recall. Appearance: grossly normal Mental Status: mental status grossly abnormal Affect: No normal affect Attitude: cooperative Thought process: Normal thought process present Coding Level of Care Code Est Pt Level 4 (87385) Diagnoses Recurrent UTI N39.0 Late onset Alzheimer dementia, unspecified dementia severity, unspecified whether behavioral, psychotic, or mood disturbance or anxiety G30.1; F02.80 Alzheimer's disease onset: late onset Dementia behavioral or psychological symptom: unspecified whether behavioral, psychotic, or mood disturbance or anxiety Dementia severity: unspecified severity Dementia type: Alzheimer's Difficulty swallowing R13.10 Dry eyes H04.123 Screening for colon cancer Z12.11 Breast cancer screening by mammogram Z12.31 Unsteady gait R26.81 Adult general medical examination Z00.00 Assessment & Plan Assessment & Plan (1) Recurrent UTI: Code(s): N39.0 - Urinary tract infection, site not specified Category: Medical Plan: Increase?hydration Can?try?cranberry?capsules?for?decreased?incidence?of?UTIs Patient's?daughter?requests?referral?to?urology?which?I?have?made (2) Dementia: Comment: stable. continue current meds. May consider aricept Code(s): F03.90 - Unspecified dementia, unspecified severity, without behavioral disturbance, psychotic disturbance, mood disturbance, and anxiety Category: Medical Qualifiers: Alzheimer's disease onset: late onset Dementia behavioral or psychological symptom: unspecified whether behavioral, psychotic, or mood disturbance or anxiety Dementia severity: unspecified severity Dementia type: Alzheimer's Qualified Code(s): G30.1 - Alzheimer's disease with late onset; F02.80 - Dementia in other diseases classified elsewhere, unspecified severity, without behavioral disturbance, psychotic disturbance, mood disturbance, and anxiety Plan: Patient was scoring below 20 on MMSE and test was stopped. Deficits?in?orientation?to?t laz?and?place.??Inability?to?repeat?back? no?ifs?and/or?buts , unable?to?recall?any?words?3?word?recall. She?is?followed?by?Neurology?at?[facility] [place]and?has?an?appointment?with?a?neurologist?co maribel?up. (3) Difficulty swallowing: Code(s): R13.10 - Dysphagia, unspecified Category: Medical Plan: Daughter?notes?difficulty?swallowing MBS?is?ordered (4) Dry eyes: Code(s): H04.123 - Dry eye syndrome of bilateral lacrimal glands Category: Medical Plan: She?will?try?Systane?gel?eyedrops. If?this?is?helpi ng?enough?could?consider?cyclosporine?eyedrops?for?dry?eyes?or?any?antihistamine ?eyedrops?such?as?olopatadine?if?there?is?some?question?allergic?conjunctivitis (5) Screening for colon cancer: Code(s): Z12.11 - Encounter for screening for malignant neoplasm of colon Category: Medical Plan: Daughter?does?not?know?when?last?colonoscopy?is Can?discuss?with?primary?doctor?regarding?screening Suggested?that?they?should?think?about?what?they?want?to?d o?if?screening?testing?is?positive?and?discuss?this?with?PCP?to?determine?whethe r?they?want?to?proceed?with?screening (6) Breast cancer screening by mammogram: Code(s): Z12.31 - Encounter for screening mammogram for malignant neoplasm of breast Category: Medical Plan: As?above,?discuss?will?PCP (7) Unsteady gait: Code(s): R26.81 - Unsteadiness on feet Category: Medical Plan: Offered?physical?therapy?but?daughter?declines?this?for?now Recommended?cane? Script?for?cane?will?be?sent?to?medical?supply?store (8) Adult general medical examination: Code(s): Z00.00 - Encounter for general adult medical examination without abnormal findings Category: Medical Plan: 69-year-old?female?presents?for?an?extended?exam Stable Orders: Orders FL Modified Barium Swallow Today R13.10 - Dysphagia, unspecified Referrals Urology Referral N39.0 - Urinary tract infection, site not specified Medications: New cane As directed, 999 days 1 ea 0RF R26.81 - Unsteadiness on feet, R41.82 - Altered mental status, unspecified
[2024-05-07 12:11] VITALS: BP 106/66; PULSE 105; RESP 16; TEMP 36.6; O2SAT 95; BMI 24.5
== END 2024-05-07 14:07 | disposition home or self-care (01) ==
PROVIDERS: PCP Internal Medicine; Visit Provider Family Medicine
DX: N39.0 Urinary tract infection, site not specified (principal); G30.1 Alzheimer's disease with late onset; F02.80 Dementia in other diseases classified elsewhere, unspecified severity, without behavioral disturbance, psychotic disturbance, mood disturbance, and anxiety; R13.10 Dysphagia, unspecified; H04.123 Dry eye syndrome of bilateral lacrimal glands; Z12.11 Encounter for screening for malignant neoplasm of colon; Z12.31 Encounter for screening mammogram for malignant neoplasm of breast; R26.81 Unsteadiness on feet; Z00.00 Encounter for general adult medical examination without abnormal findings

== ENCOUNTER → 2024-05-07 11:34 | Outpatient (BNVA) | payer MEDICARE, SELFPAY | PROVIDERS: PCP Internal Medicine; Visit Provider Family Medicine | DX: N39.0 Urinary tract infection, site not specified (principal); G30.1 Alzheimer's disease with late onset; F02.80 Dementia in other diseases classified elsewhere, unspecified severity, without behavioral disturbance, psychotic disturbance, mood disturbance, and anxiety; R13.10 Dysphagia, unspecified; H04.123 Dry eye syndrome of bilateral lacrimal glands; R26.81 Unsteadiness on feet | CPT/HCPCS: 99212 ==

== ENCOUNTER 2024-05-13 10:36 | Outpatient (AMB) | payer MEDICARE, SELFPAY ==
[2024-05-13 10:51] VITALS: BMI 24.4
--- NOTE | 2024-05-13 10:51 | MHC.OFFVIS ---
Vital Signs 05/13/24 10:51 Height 5 ft Weight 125 lb BMI 24.4 Intake Visit Reasons: P-TF-Cfnsjpbad's disease with late onset Intake Note: Patient presents for alzheimers' disease. Allergies codeine Allergy (Verified 05/13/24 10:53) Unknown [facility] Medical History (Updated 05/07/24 @ 13:19 by Gorge Fischer) Alzheimer's dementia Depression Anxiety Surgical History (Updated 05/13/24 @ 10:54 by NICKI Romo) Hx of cholecystectomy Family History Mother Alzheimer's dementia HTN (hypertension) Sister Alzheimer's dementia Father Cardiovascular disease Other FH: mental illness Substance abuse Social History Housing: House Patient Tobacco Use Status: Never used Tobacco e-Cigarette/Vaping Use: Never Used Second Hand Smoke Exposure: No service: No Current occupational status: retired Cognitive needs: Yes (Alzheimers) Hearing needs: No Vision needs: Yes Physical Exam Vital Signs: BMI result Body Mass Index 24.4 Coding
--- NOTE | 2024-05-13 11:08 | MHC.OFFVIS ---
Vital Signs 05/13/24 10:51 Height 5 ft Weight 125 lb BMI 24.4 Intake Visit Reasons: C-RF-Pagntwyxy's disease with late onset Allergies codeine Allergy (Verified 05/13/24 10:53) Unknown Medication List - Last Reconciled 05/13/24 by Tara Islas MD benztropine 0.5 mg PO DAILY cane As directed, 999 days cephalexin 500 mg (10 mL) PO QID 7 days escitalopram oxalate 10 mg PO DAILY olanzapine 20 mg PO DAILY trazodone 100 mg PO BEDTIME PRN HPI Comments Details: 69y/o female comes for further management of dementia with behavior disturbances. she is accompanied by her daughter Diana .The patient lives with her who is the main geospatial program management officer . Her cognitive issues started in 2017. she started having short term memory issues, start misplace things in the house had difficulty following conversations. she has worsened significantly since then . she was seen by Dr. Chand and was diagnosed with Dementia. she has a strong family history of dementia- mother, 2 sisters and brother. In September 2023 she developed severe behavior issues due to UTI and persisted. she was hospitalized in a psych unit. she still has hallucinations - auditory and visual. She has excessive sleepiness due to medications. But sometimes she has restlessness and sundowning. she needs help with her ADLS like dressing , showering , eating , cooking , laundry etc. she is able to do with supervision.she can still make her bed, do dishes etc. No depression. [facility] Medical History (Updated 05/13/24 @ 11:37 by Tara Islas MD) Extrapyramidal and movement disorder Alzheimer's dementia Alzheimer's dementia Depression Anxiety Surgical History Hx of cholecystectomy Family History Mother Alzheimer's dementia HTN (hypertension) Sister Alzheimer's dementia Father Cardiovascular disease Other FH: mental illness Substance abuse Social History Housing: House Patient Tobacco Use Status: Never used Tobacco e-Cigarette/Vaping Use: Never Used Second Hand Smoke Exposure: No service: No Current occupational status: retired Cognitive needs: Yes (Alzheimers) Hearing needs: No Vision needs: Yes Review of Systems Neuro Reports confusion Psych Reports confusion Physical Exam Vital Signs: BMI result Body Mass Index 24.4 Const General: cooperative, healthy appearing, comfortable and confusion Nutritional Appearance: average body habitus Orientation/consciousness: confusion Eyes Pupils: Equal, round and reactive pupils present Neuro Other: decreased facial expression and blink Tremors -meet UE postural and lE General: tone normal, moves all extremities and confusion Cranial nerves: Yes Facial sensation intact/muscles of mastication intact, Yes Equal, round and reactive pupils present, Yes Bilaterally intact EOM present, Yes Nystagmus not present, Yes Normal facial strength present, Yes Midline tongue present and Yes Ability to bilaterally elevate shoulders present Cognition (Neuro): abnormal cognition Gait exam (Neuro): Normal gait present Motor exam (neuro): 5/5 motor strength present throughout and Normal motor muscle tone present throughout Deep tendon reflexes (DTR's): Right triceps reflex intensity grade: 2+, Left triceps reflex intensity grade: 2+, Rt Biceps (C5, C6): 2+, Left biceps reflex intensity grade: 2+, Right brachioradialis reflex intensity grade: 2+, Left brachioradialis reflex intensity grade: 2+, Right patellar reflex intensity grade: 2+ and Left patellar reflex intensity grade: 2+ Coordination: [id number] test normal Orientation Where are we (state) (county) (town or city) (hospital) (floor)?: state, town or city and hospital/clinic Registration Name of 3 unrelated objects clearly and slowly, then ask patient to repeat all 3 of them. (1st repeat determines score. Make sure they can repeat all three): object 1, object 2 and object 3 Language Show patient a wristwatch & ask what it is. Repeat for pencil.: watch Ask the patient to repeat the phrase 'No ifs, ands, or buts' after you.: correct Ask the patient to 'take a piece of paper with their right hand' 'fold paper in half' 'place paper on floor': take paper in right hand and fold paper in half Print the sentence 'CLOSE YOUR EYES' on a piece. If patient actually closes eyes then score.: followed written direction Score Score: 11 Assessment & Plan Assessment & Plan (1) Alzheimer's dementia: Code(s): G30.9 - Alzheimer's disease, unspecified; F02.80 - Dementia in other diseases classified elsewhere, unspecified severity, without behavioral disturbance, psychotic disturbance, mood disturbance, and anxiety Category: Medical Qualifiers: Alzheimer's disease onset: late onset Dementia severity: severe Dementia behavioral or psychological symptom: with psychotic disturbance Qualified Code(s): G30.1 - Alzheimer's disease with late onset; F02.C2 - Dementia in other diseases classified elsewhere, severe, with psychotic disturbance (2) Extrapyramidal and movement disorder: Comment: tremors related to olanzapine Code(s): G25.9 - Extrapyramidal and movement disorder, unspecified Category: Medical Plan CT Brain reviewed labs - Normal TSH Vit B 12 I will trial her on Memantine XR 7 mg and titrate to 28mg qd will monitor her tremors Orders: Orders CT head/brain wo IV con Today R41.82 - Altered mental status, unspecified Medications: New memantine after 7 mg dose 14 mg PO DAILY 14 ea 0RF memantine after 14 mg course 21 mg PO DAILY 14 ea 0RF memantine 7 mg PO DAILY 14 ea 0RF memantine 28 mg PO DAILY 30 ea 6RF Coding Level of Care Code New Pt Level 4 (00060) Complex EM visit Add On G2211 Diagnoses Severe late onset Alzheimer's dementia with psychotic disturbance G30.1; F02.C2 Alzheimer's disease onset: late onset Dementia severity: severe Dementia behavioral or psychological symptom: with psychotic disturbance Extrapyramidal and movement disorder G25.9
== END 2024-05-13 11:29 | disposition home or self-care (01) ==
PROVIDERS: PCP Internal Medicine; Visit Provider Psychiatry & Neurology Neurology
DX: G30.1 Alzheimer's disease with late onset (principal); F02.C2 Dementia in other diseases classified elsewhere, severe, with psychotic disturbance; G25.9 Extrapyramidal and movement disorder, unspecified
CPT/HCPCS: 99204; G2211

== ENCOUNTER → 2024-05-13 10:36 | Outpatient (BNVA) | payer MEDICARE, SELFPAY | PROVIDERS: PCP Internal Medicine; Visit Provider Psychiatry & Neurology Neurology | DX: G30.1 Alzheimer's disease with late onset (principal); F02.C2 Dementia in other diseases classified elsewhere, severe, with psychotic disturbance; G25.9 Extrapyramidal and movement disorder, unspecified | CPT/HCPCS: 99202 ==

== ENCOUNTER 2024-05-20 11:18 | Outpatient (REF) | payer MEDICARE, SELFPAY ==
[2024-05-20 14:20] LABS: MANUAL DIFF FLAG NO
[2024-05-20 14:31] LABS: Appearance Urine Clear; Color Urine Yellow; Glucose Urine UA Negative (Negative); Leukocyte Esterase Urine Small (1+) (Negative); Nitrite Urine Negative (Negative); Specific Gravity - Urine 1.015 (1.005-1.025); UMIC TRIGGER UA YES; Urine Blood Negative (Negative); Urine Ketones Negative (Negative); Urine Protein Negative (Neg-Trace)
[2024-05-20 14:31] LABS: Basophils Absolute Auto 0.1 X10*3/uL (0.0-0.2); Basophils Percent Auto 0.6 % (0-2); Eosinophils Absolute Auto 0.2 X10*3/uL (0.0-0.4); Hematocrit 40.6 % (37.0-47.0); Hemoglobin 13.4 g/dl (12.0-16.0); Imm Gran Abs Auto 0.03 X10*3/uL (0.00-0.03); Imm Gran Pct Auto 0.4 % (0.0-0.4); Lymphocytes Absolute Auto 2.9 X10*3/uL (1.2-4.9); Lymphocytes Percent Auto 35.9 % (20-40); Mean Corpuscular Hemoglobin 30.2 pg (27.0-33.0); Mean Corpuscular Volume 91.4 fL (80.0-98.0); Mean Platelet Volume 9.4 fL (9.4-12.3); Monocytes Absolute Auto 0.6 X10*3/uL (0.1-1.2); Monocytes Percent Auto 7.8 % (2-11); Neutrophils Absolute Auto 4.2 x10*3/uL (2.0-8.3); Neutrophils Percent Auto 53.3 % (45-73); Platelet Count 371 X10*3/uL (160-400); Red Blood Count 4.44 X10*6/uL (4.20-5.50); Red Cell Distribution Width 12.5 % (11.0-16.0)
[2024-05-20 15:00] LABS: Bacteria Urine None Seen (None Seen); Hyaline Casts Urine 0-2 /LPF (0-2); RBC Urine 0-2 /HPF (0-2); Squamous Epithelial Cell Urine 0-2 /HPF (0-2); WBC Urine 0-5 /HPF (0-5)
[2024-05-20 15:24] LABS: Alanine Aminotransferase 18 U/L (0-31); Albumin Level 3.8 g/dL (3.5-5.0); Alkaline Phosphatase 89 U/L (39-117); Anion Gap 10 (12-20); Aspartate Amino Transferase 26 U/L (5-31); Bilirubin Total 0.5 mg/dL (0.0-1.0); Blood Urea Nitrogen 8 mg/dL (9-16); Calcium 8.6 mg/dL (8.4-10.2); Carbon Dioxide 29 mmol/L (22-29); Chloride 106 mmol/L (96-108); Cholesterol 211 mg/dL (<200); Estimated Glomerular Filt Rate > 60; Glucose Fasting 97 mg/dL (60-99); HDL Cholesterol 82 mg/dL (>40); LDL Cholesterol Calculated 113 mg/dL (<100); Potassium 3.7 mmol/L (3.3-5.1); Sodium 141 mmol/L (135-145); Total Protein 6.7 g/dL (6.5-8.0); Triglycerides 83 mg/dL (<150); Vitamin D 25-OH Total 37.9 ng/mL (>30)
[2024-05-20 15:39] LABS: Folate 13.9 ng/mL (> or = 4.0); Vitamin B12 583 pg/mL (200-900)
[2024-05-20 15:44] LABS: Creatinine Urine 88.17 mg/dL; Microalbumin Urine < 5.0 mg/L
--- OUTSIDE RECORDS SUMMARY | 2024-05-27 13:22 | XMS_ITS | Clinical Summary ---
Author Organization Unknown Care Team Providers Care Food Service Representative Name Role Phone MONIK SHEIKH, SUZI Unavailable Unavailable SIMIN ACEVEDO, KYLIE Unavailable Unavailable Payers Payer Name Policy Type Policy Number Effective Date Expira tion Date [employer] MEDICARE ADVANTAGE FFS [id number] MEDICARE - NGS [place] - PDGM [id number] Problems Condition Name Condition Details Condition Category Status Onset Date Resolution Date Last Treatment Date Treating Clinician Comments UNSPECIFIED DEMENTIA, MODERATE, WITH PSYCHOTIC DISTURBANCE Active 10-24 00:00: 00 MAJOR DEPRESSV DISORD, SINGLE EPSD, 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 Ordering Clinician Indication Dosage Frequency Signature (SIG) Comments Components benztropine 0.5 mg tablet 10-24 00:00: 00 Yes [id number] 0.5 mg DAILY 0.5 mg DAILY (route: oral) Alternate Route: NONE. Med Classific ation: Central Nervous System Agents escitalopra m 10 mg tablet 10-24 00:00: 00 Yes [id number] 1 tablet DAILY 1 tablet DAILY (route: oral) Alternate Route: NONE. Med Classific ation: Central Nervous System Agents olanzapine 20 mg tablet 10-24 00:00: 00 Yes [id number] 1 tablet DAILY 1 tablet DAILY (route: oral) Alternate Route: NONE. Med Classific ation: Central Nervous System Agents trazodone 100 mg tablet 10-24 00:00: 00 Yes [id number] 1 tablet BEDTIME 1 tablet BEDTIME (route: oral) Alternate Route: NONE. Med Classific ation: Central Nervous System Agents trazodone 50 mg tablet 10-24 00:00: 00 Yes [id number] 0.5 tablet 2 TIMES DAILY 0.5 tablet 2 TIMES DAILY (route: oral) Med Classific ation: Central Nervous System Agents Immunizations Ordered Immunization Name Filled Immunization Name Date Status Comments Refusal Reason REFUSED FLU, PPV 2023-11-01 00:00:00 Vital Signs Vital Name Observation Time Observation Value Commen ts Temperature 2024-04-17 09:32:00.000 97.8 [degF] Temperature 2024-04-10 10:40:00.000 97.8 [degF] Temperature 2024-04-08 12:42:00.000 97.8 [degF] Temperature 2024-04-01 12:06:00.000 97.9 [degF] Temperature 2024-03-25 12:15:00.000 97.9 [degF] Temperature 2024-03-20 09:50:00.000 98.3 [degF] Temperature 2024 10:56:00.000 98.3 [degF] Temperature 2024-03-11 12:28:00.000 97.8 [degF] Temperature 2024-03-06 11:12:00.000 97.9 [degF] Temperature 2024-03-04 13:00:00.000 98 [degF] Pulse 2024-04-17 09:32:00.000 70 /min Pulse 2024-04-10 10:40:00.000 101 /min Pulse 2024-04-08 12:42:00.000 80 /min Pulse 2024-04-01 12:06:00.000 70 /min Pulse 2024-03-27 11:26:00.000 103 /min Pulse 2024-03-25 12:15:00.000 105 /min Pulse 2024-03-20 09:50:00.000 105 /min Pulse 2024 10:56:00.000 69 /min Pulse 2024-03-11 12:28:00.000 113 /min Pulse 2024-03-06 11:12:00.000 102 /min Pulse 2024-03-04 13:00:00.000 101 /min Respirations 2024-04-17 09:32:00.000 16 /min Respirations 2024-04-10 10:40:00.000 16 /min Respirations 2024-04-08 12:42:00.000 16 /min Respirations 2024-04-01 12:06:00.000 16 /min Respirations 2024-03-27 11:26:00.000 16 /min Respirations 2024-03-25 12:15:00.000 16 /min Respirations 2024-03-20 09:50:00.000 16 /min Respirations 2024 10:56:00.000 14 /min Respirations 2024-03-11 12:28:00.000 16 /min Respirations 2024-03-06 11:12:00.000 16 /min Respirations 2024-03-04 13:00:00.000 16 /min Systolic Blood Pressure 2024-04-17 09:32:00.000 113 mm [Hg] Systolic Blood Pressure 2024-04-10 10:40:00.000 131 mm [Hg] Systolic Blood Pressure 2024-04-08 12:42:00.000 132 mm [Hg] Systolic Blood Pressure 2024-04-01 12:06:00.000 131 mm [Hg] Systolic Blood Pressure 2024-03-27 11:26:00.000 107 mm [Hg] Systolic Blood Pressure 2024-03-25 12:15:00.000 146 mm [Hg] Systolic Blood Pressure 2024-03-20 09:50:00.000 123 mm [Hg] Systolic Blood Pressure 2024 10:56:00.000 127 mm [Hg] Systolic Blood Pressure 2024-03-11 12:28:00.000 122 mm [Hg] Systolic Blood Pressure 2024-03-06 11:12:00.000 127 mm [Hg] Systolic Blood Pressure 2024-03-04 13:00:00.000 130 mm [Hg] Diastolic Blood Pressure 2024-04-17 09:32:00.000 74 mm [Hg] Diastolic Blood Pressure 2024-04-10 10:40:00.000 82 mm [Hg] Diastolic Blood Pressure 2024-04-08 12:42:00.000 87 mm [Hg] Diastolic Blood Pressure 2024-04-01 12:06:00.000 76 mm [Hg] Diastolic Blood Pressure 2024-03-27 11:26:00.000 83 mm [Hg] Diastolic Blood Pressure 2024-03-25 12:15:00.000 88 mm [Hg] Diastolic Blood Pressure 2024-03-20 09:50:00.000 93 mm [Hg] Diastolic Blood Pressure 2024 10:56:00.000 86 mm [Hg] Diastolic Blood Pressure 2024-03-11 12:28:00.000 77 mm [Hg] Diastolic Blood Pressure 2024-03-06 11:12:00.000 76 mm [Hg] Diastolic Blood Pressure 2024-03-04 13:00:00.000 80 mm [Hg] Plan of Treatment Planned Activity Planned Date Details Comments Future Scheduled Test SKILLED NU RSE TO EVALUATE PATIENT, IDENTIFY PRIMARY AND CO-MORBID CONDITIONS CODED PER CODING GUIDELINES, AND DEVELOP PATIENT SPECIFIC PLAN OF CARE THAT INCLUDES PATIENT GOAL FOR HOME HEALTH. [code = SKILLED NURSE TO EVALUATE PATIENT, IDENTIFY PRIMARY AND CO-MORBID CONDITIONS CODED PER CODING GUIDELINES, AND DEVELOP PATIENT SPECIFIC PLAN OF CARE THAT INCLUDES PATIENT GOAL FOR HOME HEALTH.] Future Scheduled Test SKILLED NU RSE TO PERFORM HOME SAFETY AND FALL ASSESSMENT AND PROVIDE INSTRUCTION TO IMPLEMENT HOME SAFETY AND FALL PREVENTION STRATEGIES. [code = SKILLED NURSE TO PERFORM HOME SAFETY AND FALL ASSESSMENT AND PROVIDE INSTRUCTION TO IMPLEMENT HOME SAFETY AND FALL PREVENTION STRATEGIES.] Future Scheduled Test SKILLED NU RSE TO O/A OF PATIENTS MENTAL/BEHAVIORAL STATUS, ASSESS VITAL SIGNS WEEKLY ALLOW 2 PRNS FOR MEDICATION MANAGEMENT. [code = SKILLED NURSE TO O/A OF PATIENTS MENTAL/BEHAVIORAL STATUS, ASSESS VITAL SIGNS WEEKLY ALLOW 2 PRNS FOR MEDICATION MANAGEMENT.] Future Scheduled Test SKILLED NU RSE WILL MAINTAIN SITUATIONAL AWARENESS FOR SAFETY AND WILL NOTIFY CLINICAL POUNCING LATHE OPERATOR AND PHYSICIAN/PROVIDER WITH ANY CHANGE IN CONDITION. [code = SKILLED NURSE WILL MAINTAIN SITUATIONAL AWARENESS FOR SAFETY AND WILL NOTIFY CLINICAL POUNCING LATHE OPERATOR AND PHYSICIAN/PROVIDER WITH ANY CHANGE IN CONDITION.] Future Scheduled Test SKILLED NU RSE TO REVIEW PATIENT MEDICATIONS. INSTRUCT PATIENT/CAREGIVER ON MONITORING OF EFFECTIVENESS, ADVERSE DRUG REACTIONS, SIDE EFFECTS OF ALL MEDICATIONS (PRESCRIPTION/-OTC), AND HOW AND WHEN TO REPORT PROBLEMS. [code = SKILLED NURSE TO REVIEW PATIENT MEDICATIONS. INSTRUCT PATIENT/CAREGIVER ON MONITORING OF EFFECTIVENESS, ADVERSE DRUG REACTIONS, SIDE EFFECTS OF ALL MEDICATIONS (PRESCRIPTION/-OTC), AND HOW AND WHEN TO REPORT PROBLEMS.] Future Scheduled Test SKILLED NU RSE FOR O/A AND SKILLED TEACHING RELATED TO MANAGEMENT OF DEPRESSIVE SYMPTOMS AND/OR DEPRESSION. SN TO REPORT SIGNIFICANT CHANGE IN DEPRESSIVE SYMPTOMS TO CLINICAL PROVIDER FOR EARLY INTERVENTION. [code = SKILLED NURSE FOR O/A AND SKILLED TEACHING RELATED TO MANAGEMENT OF DEPRESSIVE SYMPTOMS AND/OR DEPRESSION. SN TO REPORT SIGNIFICANT CHANGE IN DEPRESSIVE SYMPTOMS TO CLINICAL PROVIDER FOR EARLY INTERVENTION.] Future Scheduled Test SKILLED NU RSE FOR O/A AND SKILLED TEACHING OF COPING SKILLS TO MANAGE ANXIETY AND MAINTAIN SAFETY. [code = SKILLED NURSE FOR O/A AND SKILLED TEACHING OF COPING SKILLS TO MANAGE ANXIETY AND MAINTAIN SAFETY.] Future Scheduled Test SKILLED NU RSE TO ASSESS PATIENTS PSYCHOSOCIAL STATUS TO IDENTIFY POTENTIAL ISSUES THAT MAY COMPLICATE THE PROVISION OF THE PLAN OF CARE INCLUDING THE PATIENTS ABILITY TO ACCESS COMMUNITY RESOURCES AND PSYCHOSOCIAL SUPPORT SERVICES. [code = SKILLED NURSE TO ASSESS PATIENTS PSYCHOSOCIAL STATUS TO IDENTIFY POTENTIAL ISSUES THAT MAY COMPLICATE THE PROVISION OF THE PLAN OF CARE INCLUDING THE PATIENTS ABILITY TO ACCESS COMMUNITY RESOURCES AND PSYCHOSOCIAL SUPPORT SERVICES.] Future Scheduled Test SKILLED NU RSE FOR O/A OF CLIENT'S CURRENT DEGREE OF HOPELESSNESS AND PROVIDE THERAPEUTIC INTERVENTIONS AND TEACHING DESIGNED TO ENHANCE THE CLIENT'S WELL BEING. [code = SKILLED NURSE FOR O/A OF CLIENT'S CURRENT DEGREE OF HOPELESSNESS AND PROVIDE THERAPEUTIC INTERVENTIONS AND TEACHING DESIGNED TO ENHANCE THE CLIENT'S WELL BEING.] Future Scheduled Test SKILLED NU RSE FOR OBSERVATION AND ASSESSMENT TO IDENTIFY CHANGES ASSOCIATED WITH DEMENTIA DX DEMENTIA AND TEACHING RELATED TO SAFETY MEASURES TO PREVENT INJURY, ELOPEMENT RISKS, BEHAVIOR CHANGES, ACTIVITIES, AND ENVIRONMENTAL CHANGES ALL SECONDARY TO IMPAIRED COGNITIVE STATUS. [code = SKILLED NURSE FOR OBSERVATION AND ASSESSMENT TO IDENTIFY CHANGES ASSOCIATED WITH DEMENTIA DX DEMENTIA AND TEACHING RELATED TO SAFETY MEASURES TO PREVENT INJURY, ELOPEMENT RISKS, BEHAVIOR CHANGES, ACTIVITIES, AND ENVIRONMENTAL CHANGES ALL SECONDARY TO IMPAIRED COGNITIVE STATUS.] Goal 2023-12-27 Patient Goal - EAT MORE MEAL S Goal 2024-02-26 Patient Goal - EAT MORE MEAL S Goal 2024-04-28 Patient Goal - EAT MORE MEAL S Goal Provider Goal - A PLAN OF CARE WILL BE ESTABLISHED THAT MEETS PATIENT'S NURSING HOME NEEDS AND INCLUDES PATIENT GOAL FOR HOME HEALTH. Goal Provider Goal - PATIENT/CAREGIVER WILL VERBALIZE/DEMONSTRATE EFFECTIVE HOME SAFETY AND FALL PREVENTION STRATEGIES THROUGHOUT CERTIFICATION PERIOD. Goal Provider Goal - ALTERED MENTAL/BEHAVIORAL STATUS WILL BE IDENTIFIED PROMPTLY AND INTERVENTION INITIATED QUICKLY TO MINIMIZE ASSOCIATED RISKS THROUGHOUT CERTIFICATION PERIOD. Goal Provider Goal - PATIENT WILL REMAIN SAFE IN THE COMMUNITY AND WILL BE FREE OF DANGER TO SELF AND OTHERS THROUGHOUT THE CERTIFICATION PERIOD. Goal Provider Goal - PATIENT/CAREGIVER WILL VERBALIZE UNDERSTANDING OF EDUCATION PROVIDED ON MEDICATIONS BY THE END OF THE CERTIFICATION PERIOD. Goal Provider Goal - PATIENT WILL REMAIN SAFE WITHOUT DECOMPENSATION IN DEPRESSIVE CONDITION, WHILE MAINTAINING OPTIMAL LEVEL OF MENTAL HEALTH AND WELL BEING THROUGHOUT CERTIFICATION PERIOD. Goal Provider Goal - PATIENT WILL BE ABLE TO PERFORM DAILY FUNCTIONS AND HAVE OPTIMAL IMPROVEMENT IN LEVEL OF ANXIETY THROUGHOUT CERTIFICATION PERIOD. Goal Provider Goal - PSYCHOSOCIAL NEEDS WILL BE IDENTIFIED AND PLAN IMPLEMENTED TO MINIMIZE RISK THROUGHOUT CERTIFICATION PERIOD. Goal Provider Goal - PATIENT WILL VERBALIZE OWN ASSOCIATION OF FEELINGS OF HOPELESSNESS, AND 3 THERAPEUTIC TECHNIQUES TO DECREASE THESE FEELINGS BY THE END OF THIS CERTIFICATION. Goal Provider Goal - PATIENT/CAREGIVER WILL VERBALIZE /DEMONSTRATE APPROPRIATE ENVIRONMENTAL/SAFETY MODIFICATIONS IN RESPONSE TO BEHAVIOR/COGNITIVE CHANGES ASSOCIATED WITH DEMENTIA DIAGNOSIS THROUGHOUT THE CERTIFICATION PERIOD. Reason for Visit INDEPENDENT IN THE HOME Encounters Start Date/Time End Date/Time Encounter Type Admission Type Attending [facility] Department Encounter ID Discharge Date Discharge Status Discharge Condition Discharge Reason Percent Goals Met 2023-11-01 00:00:00 2024-04-28 00:00:00 Outpatient RECERTIFIC ATION KYLIE DUVAL [facility] [id number] 2024-04-28 00:00:00 DISCHARGE TO HOME OR SELF CARE INDEPENDEN T IN THE HOME PER FAMILY REQUEST 42.11
== END 2024-05-20 11:19 | disposition home or self-care (01) ==
LOC: HO.WFDLDS 11:18
PROVIDERS: Visit Provider Family Medicine
DX: Z00.00 Encounter for general adult medical examination without abnormal findings (principal); N39.0 Urinary tract infection, site not specified; E55.9 Vitamin D deficiency, unspecified; I10 Essential (primary) hypertension; E53.8 Deficiency of other specified B group vitamins
CPT/HCPCS: 36415; 80053; 80061; 81001; 82043; 82306; 82570; 82607; 82746; 84443; 85025

== ENCOUNTER 2024-06-27 14:38 | Outpatient (REF) | payer MEDICARE, SELFPAY ==
--- NOTE | ~2024-06-27 | CT_ITS ---
CLINICAL HISTORY: R41.82 - Altered mental status, unspecified CT HEAD WITHOUT CONTRAST Comparison: None Findings: No acute intracranial hemorrhage, extra-axial fluid collection, hydrocephalus or midline shift. Age appropriate generalized parenchymal atrophy. There are periventricular and subcortical white matter hypodensities which are nonspecific but most likely related to microangiopathic gliosis. There is no sinus or mastoid fluid. Visualized orbits: No acute abnormalities. There is no acute fracture. IMPRESSION: 1. No acute intracranial process. This document has been electronically signed by: Shelly Rodriguez DO on 06/30/2024 16:28:04
== END 2024-06-27 14:39 | disposition home or self-care (01) ==
LOC: HO.CT 14:38
PROVIDERS: PCP Internal Medicine; Visit Provider Psychiatry & Neurology Neurology
DX: R41.82 Altered mental status, unspecified (principal)
CPT/HCPCS: 70450

== ENCOUNTER → 2024-06-27 14:41 | Outpatient (BNV) | payer MEDICARE, SELFPAY | PROVIDERS: PCP Internal Medicine; Visit Provider Radiology Diagnostic Radiology | DX: R41.82 Altered mental status, unspecified (principal) | CPT/HCPCS: 70450 ==

== ENCOUNTER 2024-07-02 13:36 | Outpatient (AMB) | payer MEDICARE, SELFPAY ==
--- NOTE | 2024-07-02 13:41 | A.OFFVIS_ITS ---
Intake Visit Reasons: microscopic hematuria/UTI Intake Note: New patient is present for Microscopic Hematuria/UTI Urology Med: None Antibiotic Allergies: None Blood Thinner: Nove PVR: 0ml Histologist Technologist Required: No Health Psychologist: Health Psychologist Present Accompanied by: Daughter Allergies codeine Allergy (Verified 07/02/24 14:51) Unknown Medication List - Last Reconciled 07/02/24 by DAVID Marquez benztropine 0.5 mg PO DAILY cane As directed, 999 days escitalopram oxalate 10 mg PO DAILY olanzapine 20 mg PO DAILY trazodone 100 mg PO BEDTIME PRN trazodone 50 - 150 mg PO BEDTIME PRN HPI Comments Details: Irma is a very pleasantly confused 69-year-old female patient of Dr. Mcmillan who was accompanied by her daughter/dean of chapel. She has a past medical history of depression, anxiety, and Alzheimer's dementia. She presents to the office today as a new patient for recurrent urinary tract infections. In discussion with the patient's daughter who provides much of today's history as patient is forgetful she reports having followed up with her PCP for recurrent urinary tract infections at which time recommendations were made for urology referral for further assessment evaluation. In review of patient's chart it appears urine cultures 10/09 no growth, 12/09 > 100,000 cfu/ml Mixed bacterial arya characteristic of urogenital contamination, 05/11 > 100,000 cfu/ml Mixed bacterial arya characteristic of urogenital contamination Patient's daughter reports reports typical UTI symptoms are hallucinations and decrease urine output. She currently denies any UTI like symptoms. We discussed at length potential causes of recurrent urinary tract infections and or lower urinary tract symptoms. We discussed trial of Vagifem and or Estrace cream however daughter does not believe this will be possible at this time. She denies any issues with her bowels. Unable to obtain urine for urinalysis today however PVR 0 mL. [facility] Medical History Extrapyramidal and movement disorder Alzheimer's dementia Alzheimer's dementia Depression Anxiety Surgical History Hx of cholecystectomy Family History Mother Alzheimer's dementia HTN (hypertension) Sister Alzheimer's dementia Father Cardiovascular disease Other FH: mental illness Substance abuse Social History Housing: House Patient Tobacco Use Status: Never used Tobacco e-Cigarette/Vaping Use: Never Used Second Hand Smoke Exposure: No service: No Current occupational status: retired Cognitive needs: Yes (Alzheimers) Hearing needs: No Vision needs: Yes Review of Systems Const Unobtainable due to mental condition Physical Exam Const General: cooperative, healthy appearing, comfortable, no acute distress, well developed, alert and awake Nutritional Appearance: average body habitus Orientation/consciousness: oriented to person Limitations: no limitations HEENT Head: Yes normal to inspection, Yes normocephalic and Yes atraumatic Ears: hearing grossly normal bilaterally Eyes General: appearance normal, both eyes and all related structures Neck Neck: Yes normal visual inspection and Yes trachea midline Chest Chest palpation & inspection: normal inspection of the chest Resp Effort & Inspection: normal respiratory effort and able to speak in complete sentences Cardio Rate: regular rate GI Inspection: Yes normal to inspection General: Yes no CVA tenderness Back/Spine/Pelvis Back: no CVA tenderness Skin General skin exam: no rashes or lesions noted Neuro General: oriented to person Extrem General: Yes normal to inspection Psych Appearance: grossly normal and well kempt Mental Status: mental status grossly normal Speech and movement: Normal speech and movement present and Clear speech present Affect: normal affect Attitude: cooperative Thought process: Normal thought process present Thought content: Normal thought content present Insight: Fair insight present (Psych) Judgement: Fair judgement present (Psych) Office Procedures Post Void Residual Post Residual Void Post Void Residual (PVR): 0 05236-Icwo Void Residual by ultrasound Assessment & Plan Assessment & Plan (1) Recurrent UTI: Code(s): N39.0 - Urinary tract infection, site not specified Category: Medical Plan Unable to obtain urine for urinalysis today however PVR 0 mL. We discussed at length potential causes of lower urinary tract symptoms patient is experiencing. We discussed further treatment options of recurrent urinary tract infections. Will obtain retroperitoneal ultrasound for further assessment evaluation. Start methenamine and vitamin-C as discussed and prescribed. Discussed, educated, and stressed the importance of adequate hydration relation to recurrent urinary tract infections as well as overall health and well-being. Discussed UTI prevention with D mannose supplement, vitamin-C, increasing fluid intake, behavioral therapy with timed voiding, perineal hygiene and postcoital voiding, and management of constipation with stool softeners and increased fiber intake. Follow-up in 3 months with imaging to be completed prior; or sooner with any issues, concerns, and or questions. Orders: Orders AMB Urinalysis Automated Today Z13.9 - Encounter for screening, unspecified AMB Post Void Residual by ultrasound Today N39.0 - Urinary tract infection, site not specified US retroperitoneal comp Today N39.0 - Urinary tract infection, site not specified Medications: New ascorbic acid (vitamin C) 1 g PO DAILY 90 days 90 tabs 1RF N39.0 - Urinary tract infection, site not specified methenamine hippurate 1 g PO DAILY 90 days 90 tabs 1RF N39.0 - Urinary tract infection, site not specified Patient Instructions: The patient had an opportunity to ask questions regarding the treatment plan. All questions were answered. Physical exam, labs, and imaging were discussed and reviewed in detail. As well as risks, benefits, and discussion of treatment choices. No major barriers to understanding were identified. The patient expressed understanding and agreement with the above treatment plan. The patient was made aware they should contact our office by phone for worsening of their current condition, the appearance of new symptoms, or with any questions or concerns. Compliance is encouraged with any medications and follow up testing that is ordered. It is a privilege to be allowed the opportunity to participate in? your urological care.? Again, if you have any questions or concerns If you have any questions or concerns please do not hesitate to contact me. The office is [phone]. This note is constructed using voice recognition software. While every effort has been made to ensure accuracy scallop cutter machine errors may have been included. Yours sincerely, DAVID Marquez Coding Level of Care Code New Pt Level 4 (52587) Diagnoses Recurrent UTI N39.0 CPT Codes Post Residual Void - PVR CPT Code: 06372-Xbsm Void Residual by ultrasound ([id number])
== END 2024-07-02 14:49 | disposition home or self-care (01) ==
PROVIDERS: PCP Internal Medicine; Visit Provider Nurse Practitioner Family
DX: N39.0 Urinary tract infection, site not specified (principal)
CPT/HCPCS: 99204

== ENCOUNTER → 2024-07-02 13:36 | Outpatient (BNVA) | payer MEDICARE, SELFPAY | PROVIDERS: PCP Internal Medicine; Visit Provider Nurse Practitioner Family | DX: N39.0 Urinary tract infection, site not specified (principal) | CPT/HCPCS: 51798; 99202 ==

== ENCOUNTER 2024-11-11 11:04 | Outpatient (AMB) | payer MEDICARE, SELFPAY ==
[2024-11-11 11:23] VITALS: BP 120/78; PULSE 93; TEMP 35.5; O2SAT 96; BMI 25.5
--- NOTE | 2024-11-11 11:23 | A.OFFVIS_ITS ---
Vital Signs 11/11/24 11:23 Height 5 ft Weight 130 lb 8 oz BMI 25.5 BP 120/78 Blood Pressure Location Rt brachial Position Sitting Pulse 93 Pulse Source Pulse Oximeter Temp 96 F L Pulse Oximetry (%) 96 Oxygen Delivery Method Room Air Intake Visit Reasons: Alzheimer's disease/late onset Intake Note: Patient presents follow up Dementia. CT in chart. Patient currently fighting a UTI. Patient was doing very well up until the UTI. Accompanied by: Daughter Allergies codeine Allergy (Verified 11/11/24 11:26) Unknown HPI Comments Details: 69y/o female comes for further management of dementia with behavior disturbances. She is accompanied by her daughter Diana The patient lives with her who is the main learning support specialist and says they would like a homehealth aide or VNA to assist with his 's daily care. She started having short term memory issues in 2017, she misplaces things in the house, and had difficulty following conversations, will get confused easily. She has declined significantly since she was seen by Dr. Chand and was diagnosed with Dementia. She has a positive family history of dementia with mother, 2 sisters, and 1 brother. In September 2023 she developed severe behavioral issues due to UTI, which still persists. She was hospitalized in a psych unit. She still has hallucinations, mainly auditory only, with self talk for hours causing her to lose her voice, and she denies VH. She has excessive sleepiness due to medications. RLS symptoms She has pins, needles and an uncomfortable sensation in her legs bilaterally at night, with sun-downing she feels worse, more anxious and restless. She needs help with all her ADLS dressing, showering, eating, cooking, laundry etc. She is able to complete some tasks with supervision and redirection. She is still able to make her bed, and do dishes when instructed. Denies any falls. Denies depression, constipation, her diet is usually pretty healthy and she stays active all day. [facility] Medical History Extrapyramidal and movement disorder Alzheimer's dementia Alzheimer's dementia Depression Anxiety Surgical History Hx of cholecystectomy Family History Mother Alzheimer's dementia HTN (hypertension) Sister Alzheimer's dementia Father Cardiovascular disease Other FH: mental illness Substance abuse Social History Housing: House Patient Tobacco Use Status: Never used Tobacco e-Cigarette/Vaping Use: Never Used Second Hand Smoke Exposure: No service: No Current occupational status: retired Cognitive needs: Yes (Alzheimers) Hearing needs: No Vision needs: Yes Physical Exam Vital Signs: Last Vital Signs Temp 96 F L 11/11/24 11:23 Pulse 93 11/11/24 11:23 BP 120/78 11/11/24 11:23 Pulse Ox 96 11/11/24 11:23 Oxygen Delivery Method Room Air 11/11/24 11:23 BMI result Body Mass Index 25.5 Results Reviewed Results Reviewed: CT scan Jun 2024 Findings: No acute intracranial hemorrhage, extra-axial fluid collection, hydrocephalus or midline shift. Age appropriate generalized parenchymal atrophy. There are periventricular and subcortical white matter hypodensities which are nonspecific but most likely related to microangiopathic gliosis. There is no sinus or mastoid fluid. Visualized orbits: No acute abnormalities. There is no acute fracture. IMPRESSION: 1. No acute intracranial process. Assessment & Plan Assessment & Plan (1) Alzheimer's dementia: Code(s): G30.9 - Alzheimer's disease, unspecified; F02.80 - Dementia in other diseases classified elsewhere, unspecified severity, without behavioral disturbance, psychotic disturbance, mood disturbance, and anxiety Category: Medical Qualifiers: Alzheimer's disease onset: late onset Dementia behavioral or psychological symptom: with psychotic disturbance Dementia severity: severe Qualified Code(s): G30.1 - Alzheimer's disease with late onset; F02.C2 - Dementia in other diseases classified elsewhere, severe, with psychotic disturbance (2) Psychosis: Comment: Auditory hallucinations - is on olanzapine Code(s): F29 - Unspecified psychosis not due to a substance or known physiological condition Category: Medical Qualifiers: Psychosis type: brief psychotic disorder Qualified Code(s): F23 - Brief psychotic disorder (3) Depression, major, in partial remission: Code(s): F32.4 - Major depressive disorder, single episode, in partial remission Category: Medical Qualifiers: Major depression recurrence: recurrent Qualified Code(s): F33.41 - Major depressive disorder, recurrent, in partial remission Plan APO E4 testing for family risk assessment of dementia. Leqembi trial?patient education provided today. Labs reviewed with daughter and patient today B12, tsh, vit d, is normal, elevated cholesterol. Cognitive decline start memantine 28mg po daily AH continue olanzapine, will increase next time if symptoms are not improved. Orders: Orders AMB Urinalysis Automated 07/02/24 Z13.9 - Encounter for screening, unspecified Ferritin Today F02.C2 - Dementia in other diseases classified elsewhere, severe, with psychotic disturbance, F23 - Brief psychotic disorder, F33.41 - Major depressive disorder, recurrent, in partial remission, G30.1 - Alzheimer's disease with late onset Homocysteine Today F02.C2 - Dementia in other diseases classified elsewhere, severe, with psychotic disturbance, F23 - Brief psychotic disorder, F33.41 - Major depressive disorder, recurrent, in partial remission, G30.1 - Alzheimer's disease with late onset, G47.9 - Sleep disorder, unspecified, R53.83 - Other fatigue Other [place] [facility] [place] F02.80 - Dementia in other diseases classified elsewhere, unspecified severity, without behavioral disturbance, psychotic disturbance, mood disturbance, and anxiety, G30.9 - Alzheimer's disease, unspecified Methylmalonic Acid Today F02.C2 - Dementia in other diseases classified elsewhere, severe, with psychotic disturbance, F23 - Brief psychotic disorder, F33.41 - Major depressive disorder, recurrent, in partial remission, G30.1 - Alzheimer's disease with late onset, G47.9 - Sleep disorder, unspecified, R53.83 - Other fatigue Parathyroid Hormone Intact Today F02.C2 - Dementia in other diseases classified elsewhere, severe, with psychotic disturbance, F23 - Brief psychotic disorder, F33.41 - Major depressive disorder, recurrent, in partial remission, G30.1 - Alzheimer's disease with late onset Referrals [facility] F02.C2 - Dementia in other diseases classified elsewhere, severe, with psychotic disturbance, G30.1 - Alzheimer's disease with late onset Medications: New memantine Take this medication after completion of 21 mg PO daily of Memantine. Take this dose 28mg PO daily for ongoing maintenance therapy. 28 mg PO DAILY 30 ea 3RF Refilled methenamine hippurate 1 g PO DAILY 90 tabs 1RF 90 days N39.0 - Urinary tract infection, site not specified Patient Instructions: Sleep Hygiene provided: set a scheduled bedtime and wake time to help regulate the circadian rhythm and balance the release of pituitary hormones. Sleep in a d ark room, temperatures below 68 degrees, and no devices n bed. Limit caffeinated products 6 hours prior to bed, and limit fluids 2-4 hours prior to bed. Gentle night yoga, diffusing essential oils, and playing soft music can be relaxing. 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
--- OUTSIDE RECORDS SUMMARY | 2024-11-11 11:52 | XMS_ITS | Clinical Summary ---
Author Organization [facility] it Address [address] [place] [address] Care Team Providers Care Making Machine Operator Name Role Phone Angela Davison MD Primary Care Prov ider Allergies No known active allergies Active Problems Problem Noted Date Diagnosed Date No known problems 07/15/2024 Surgical History Surgery Date Site/Laterality Comments CHOLECYSTECTOMY PROCEDURE: LAPAROSCOPY, CHOLECYSTECTOMY Family History Relation Name Status Comments Brother Alive Father Mother Sister Alive Social History Tobacco Use Types Packs/Day Years Used Date Smoking Tobacco: Never Alcohol Use Standard Drinks/Week Comments No 0 (1 standard drink = 0.6 oz pur e alcohol) Comments Unknown Sex and Gender Information Value Date Recorded Sex Assigned at Not on file Legal Sex Female 4:32 AM EST Gender Identity Not on file Sexual Orientation Not on file Obstetrics History Plan of Treatment Health Maintenance Due Date Last Done Comments Breast Cancer Screening 1955 DTaP,Tdap,and Td Vaccines (1 - Tdap) 1972 Pneumococcal Vaccine: 50+ Ye ars (1 of 1 - PCV) 2003 Zoster Vaccines (1 of 2) 2003 COVID-19 Vaccine ( - 2023-2 5 season) 2024 Colorectal Cancer Screening: Colonoscopy 05/29/2024 Depression Screening 05/29/2024 Falls Risk Assessment 05/29/2024 Osteoporosis Screening (Bone Density Screening) 05/29/2024 Social Influencers of Health Screening 05/29/2024 Influenza Vaccine (Season Ended) 2025 RSV Immunization Adult Patie nts (1 - 1-dose 75+ series) 2028 Hepatitis C Screening Completed 03/20/2014 HIB Vaccines Aged Out No longer eligi ble based on patient's age to complete this topic HPV Vaccines Aged Out No longer eligi ble based on patient's age to complete this topic Hepatitis A Vaccines Aged Out No long er eligible based on patient's age to complete this topic Hepatitis B Vaccines Aged Out No long er eligible based on patient's age to complete this topic IPV Vaccines Aged Out No longer eligi ble based on patient's age to complete this topic MMR Vaccines Aged Out No longer eligi ble based on patient's age to complete this topic Meningococcal ACWY Vaccine Aged Out N o longer eligible based on patient's age to complete this topic Meningococcal B Vaccine Aged Out No l onger eligible based on patient's age to complete this topic RSV Immunization Patients Un dmitri 20 months Aged Out No longer eligible b ased on patient's age to complete this topic Varicella Vaccines Aged Out No longer eligible based on patient's age to complete this topic Procedures Procedure Name Priority Date/Time Associated Diagnosis Comments HEPATITIS C SCREENING Routine 03/20/2014 from Last 3 Months or Most Recently Relevant to Health Maintenance Results * Hepatitis C Screening (03/20/2014) Hepatitis C Screening Abstracted Historical Provider HEALTH MAINTENANCE Final Result from Last 3 Months or Most Recently Relevant to Health Maintenance Care Teams Making Machine Operator Relationship Specialty Start Date End Date Angela Davison MD PCP - General Internal Medicine 12/24/13
== END 2024-11-11 12:45 | disposition home or self-care (01) ==
LOC: HO.HSMS 11:05
PROVIDERS: PCP Internal Medicine; Visit Provider Physician Assistant Medical
DX: G30.1 Alzheimer's disease with late onset (principal); F02.C2 Dementia in other diseases classified elsewhere, severe, with psychotic disturbance; F23 Brief psychotic disorder; F33.41 Major depressive disorder, recurrent, in partial remission
CPT/HCPCS: 99214

== ENCOUNTER 2024-11-13 22:21 | Inpatient (IN) | payer MEDICARE, SELFPAY ==
--- NOTE | 2024-11-13 | ECG_ITS ---
Test Reason : ALTERED Blood Pressure : */* mmHG Vent. Rate : 103 BPM Atrial Rate : 103 BPM P-R Int : 132 ms QRS Dur : 78 ms QT Int : 334 ms P-R-T Axes : 47 -23 42 degrees QTcB Int : 437 ms Sinus tachycardia Minimal voltage criteria for LVH, may be normal variant ( R in aVL ) Borderline ECG No previous ECGs available Referred By: Generic ED Physician Electronically Signed By: CONNIE PANIAGUA MD
--- NOTE | ~2024-11-13 | XR_ITS ---
CLINICAL HISTORY: Unable to bear weight (both legs) 5 view, pelvis and bilateral hips Comparison: None Findings: No acute fracture or dislocation. No significant arthritic change. The soft tissues are unremarkable. IMPRESSION: No acute findings. This document has been electronically signed by: Darrin Rodrigues MD on 11/14/2024 06:45:46
--- NOTE | ~2024-11-13 | XR_ITS ---
CLINICAL HISTORY: sob hypoxia 1 view chest x-ray. Comparison: None Findings: The lungs are adequately expanded. No focal consolidation. No effusion or pneumothorax. Cardiac and mediastinal contours are within normal limits. No acute osseous abnormality Impression: No acute process. This document has been electronically signed by: Diallo Kinsey MD on 11/13/2024 23:29:36
--- NOTE | ~2024-11-13 | CT_ITS ---
CLINICAL HISTORY: hypoxic, tachycardic, normal cxr CT Angiography Chest W Contrast 3D Postprocessing COMPARISON: CR - XR CHEST 1V - 11/13/24 22:50 EDT FINDINGS: Detail limited by artifacts. No pulmonary embolism. No thoracic aortic aneurysm or dissection. No consolidation. No mass. Mild bibasilar atelectasis. No pleural effusion. No pneumothorax. No cardiomegaly. No pericardial effusion. No pathologically enlarged lymph nodes. No acute fracture. Degenerative changes in the spine. Status post cholecystectomy. Diffusely hypodense liver consistent with hepatic steatosis. Elevation of the right hemidiaphragm. IMPRESSION: No acute findings. No pulmonary embolism. Nonemergent/incidental findings above. This document has been electronically signed by: Kvng Barrera MD on 11/14/2024 02:07:05
[2024-11-13 22:31] VITALS: BP 161/80; BP 170/90; PULSE 110; PULSE 116; RESP 20; TEMP 37.4; O2SAT 83; O2SAT 93; O2SAT 95; BMI 26.3
--- NOTE | 2024-11-13 22:35 | PC.NURSE ---
pt arturo was found 3 miles away from home, eloped approx 1999 and found approx 2215. pt told them she was trying to go to her house (old home). dx with UTI 2 weeks ago, on PO abx. pt c/o BLE pain, no trauma noted. pt does not remember falling. pt has hx dementia. on arrival rectal temp 99.4, tachycardic and hypoxic. pt placed on 2L NC. Dr. Perez notified and at bedside to assess. 20g IV to L. hand.
--- NOTE | 2024-11-13 22:48 | ED_ITS ---
HPI - General Adult General Chief complaint: Altered Mental Status Stated complaint: dementia, eloped 2hrs, knee and leg pain Time Seen by Provider: 11/13/24 22:40 Source: patient, family and EMS Mode of arrival: EMS Limitations: no limitations History of Present Illness ED Provider: Dr. Faith Perez HPI narrative: Patient comes to the emergency room accompanied by her family. Patient has history of dementia, walked out of her house and went missing for 3 hours. Eventually patient was found safe. Patient's daughters are at bedside, patient is currently being treated for a urinary tract infection with ciprofloxacin, 2 days her 2nd day. Patient is awake, alert, has no complaints. Per patient's nurse, patient's oxygen saturation was 83% when patient arrived. Worsened but was placed on 2 L of oxygen. The family reports that they have noted that patient has been coughing more than usual. Related Data Home Medications ?Medication ?Instructions ?Recorded ?Confirmed escitalopram oxalate 10 mg tablet 10 mg PO DAILY 10/31/23 05/13/24 olanzapine 20 mg tablet 20 mg PO DAILY 10/31/23 05/13/24 trazodone 100 mg tablet 100 mg PO BEDTIME PRN 10/31/23 05/13/24 trazodone 50 mg tablet 50 - 150 mg PO BEDTIME PRN 07/02/24 Previous Rx's ?Medication ?Instructions ?Recorded benztropine 0.5 mg tablet 0.5 mg PO DAILY #90 tabs 10/31/23 cane #1 ea 05/07/24 ascorbic acid (vitamin C) 1,000 mg 1 g PO DAILY 90 days #90 tabs 07/02/24 tablet methenamine hippurate 1 gram tablet 1 g PO DAILY 90 days #90 tabs 11/11/24 memantine 28 mg capsule 28 mg PO DAILY #30 ea 11/12/24 sprinkle,extended release 24hr Allergies Allergy/AdvReac Type Severity Reaction Status Date / Time codeine Allergy Unknown Verified 11/13/24 22:35 Review of Systems 2 Review of Systems: Patient has Alzheimer's dementia, unable to give any meaningful history, has no complaints Yes Other PMFSH Past Medical History Medical History Extrapyramidal and movement disorder Alzheimer's dementia Alzheimer's dementia Depression Anxiety Surgical History Hx of cholecystectomy Family History Family History Mother Alzheimer's dementia HTN (hypertension) Sister Alzheimer's dementia Father Cardiovascular disease Other FH: mental illness Substance abuse Social History Social History Housing: House Alcohol intake: never Patient Tobacco Use Status: Never used Tobacco Smoked in Last 30 Days: No e-Cigarette/Vaping Use: Never Used Second Hand Smoke Exposure: No Use of substances other than those prescribed or required for medical reasons: No Advance Directives: Yes Advance Directives Information Provided: Yes Advance Directives on File: No Do you have a plan to hurt others: No Plan service: No Current occupational status: retired Cognitive needs: Yes (Alzheimers) Hearing needs: No Vision needs: Yes Physical Exam ED Vital Signs: Vital Signs - 24 hr 11/13/24 22:31 11/13/24 22:31 11/14/24 01:07 Temperature 99.4 F Pulse Rate 116 H Respiratory Rate 20 Blood Pressure 161/80 H 125/69 Pulse Oximetry 83 L 95 Oxygen Delivery Method Room Air Nasal Cannula Oxygen Flow Rate 2 11/14/24 01:11 11/14/24 02:30 Temperature 99.6 F 98.2 F Pulse Rate 110 H 106 H Respiratory Rate 16 20 Blood Pressure 126/67 121/77 Pulse Oximetry 100 93 Oxygen Delivery Method Nasal Cannula Nasal Cannula Oxygen Flow Rate 2 2 BMI result Body Mass Index 26.3 Const Other: Appearance: Alert. Oriented X3. No acute distress. Eyes: Pupils equal, round and reactive to light. ENT: Pharynx normal. Neck: Normal inspection. Neck supple. No lymph nodes noted. No crepitus CVS: Normal heart rate and rhythm. Pulses normal. Normal S1 and S2 Respiratory: No respiratory distress. Breath sounds normal. No Wheezing. No rales Abdomen: Soft and nontender. No rigidity. No distention. Skin: Skin warm and dry. Normal skin color. Normal skin turgor. Extremities: No lower extremity edema. No Lacerations. No Rash Neuro: Oriented X 3. No motor deficit. No sensory deficit. Moving all extremities. No slurred speech. CN 2 through 12 grossly intact Psych: calm, cooperative, normal affect Course Course Course Narrative: Patient unable to give any significant history, per patient's nurse, oxygen saturation was 83% on room air when she arrived, now on 2 L. also, per patient's family, patient is currently being treated for a UTI with ciprofloxacin Empirically, patient being treated with IV fluids, ceftriaxone azithromycin All of patient's labs and imaging pending At this time, 22:55, sepsis is not suspected Medications Administered Discontinued Medications Generic Name Dose Route Start Last Admin Trade Name Larry PRN Reason Stop Dose Admin Acetaminophen 975 mg 11/13/24 23:51 11/14/24 00:09 Acetaminophen 325 Mg Tablet PO 11/13/24 23:52 975 mg ONCE ONE Administration Ceftriaxone Sodium 1 gm 11/13/24 22:54 11/13/24 23:21 Ceftriaxone Sodium 1 Gm Vial IVPUSH 11/13/24 22:55 1 gm ONCE ONE Administration Sodium Chloride 2,000 mls @ 999 mls/hr 11/13/24 22:54 11/14/24 01:05 Ns IVCONT 11/14/24 00:54 Infused .Q2H1M ONE Infusion Azithromycin 500 mg/ Sodium 250 mls @ 125 mls/hr 11/13/24 22:54 11/14/24 01:34 Chloride IV 11/14/24 00:53 Infused ONCE ONE Infusion Iohexol 65 ml 11/14/24 00:53 11/14/24 00:54 Iohexol 350 Mg/Ml 100 Ml Infus..Btl IV 11/14/24 00:54 65 ml ONCE ONE Administration Medical Decision Making Medical Decision Making [facility] Narrative: My interpretation of labs: Patient's white blood cell count is 18, patient recovering from a urinary tract infection. Patient is venous blood gases did not show any significant abnormality. Chemistry within normal limits Urinalysis shows trace blood in the urine. Negative for nitrite or leukocyte esterase, no bacteria seen in the urine. It was noted that patient's oxygen saturation dropped to 87% at baseline. Patient tachycardic despite 2 L of fluid CTA is negative for pulmonary embolism or pneumonia. Unclear why patient's oxygen desaturation drops with good waveform Patient is saturating in the high 90s on 2 L. I discussed the above-mentioned with Dr. Fuentes from the Medicine team, patient being admitted under observation. Labs were added including TSH and reflex T4, vitamin B12 Differential Diagnosis Differential Diagnoses: The differential diagnosis associated with the presentation includes (Pneumonia, viral illness, pulmonary embolism) Admission/Observation Consideration of admission/observation: Escalation of care including admission/observation considered Consult Healthcare Provider Management of the patient was discussed with: Hospitalist Lab Data [facility] Lab Attestation statement: I reviewed the patient's lab results. 11/13/24 23:16 11/13/24 23:16 Labs: Lab Results 11/13/24 11/13/24 11/13/24 Range/Units 23:14 23:16 23:29 WBC 18.0 H (4.8-10.8) X10*3/uL RBC 4.10 L (4.20-5.50) X10*6/uL Hgb 12.1 (12.0-16.0) g/dl Hct 36.0 L (37.0-47.0) % MCV 87.8 (80.0-98.0) fL MCH 29.5 (27.0-33.0) pg MCHC 33.6 (31.0-35.0) g/dl RDW 12.7 (11.0-16.0) % Plt Count 368 (160-400) X10*3/uL MPV 8.5 L (9.4-12.3) fL Immature Gran % (Auto) 0.6 H (0.0-0.4) % Neut % (Auto) 86.6 H (45-73) % Lymph % (Auto) 7.7 L (20-40) % Wright % (Auto) 4.7 (2-11) % Eos % (Auto) 0.1 (0-4) % Baso % (Auto) 0.3 (0-2) % Lymph # (Auto) 1.4 (1.2-4.9) X10*3/uL Wright # (Auto) 0.8 (0.1-1.2) X10*3/uL Eos # (Auto) 0.0 (0.0-0.4) X10*3/uL Baso # (Auto) 0.1 (0.0-0.2) X10*3/uL Abs Immat Gran (auto) 0.11 H (0.00-0.03) X10*3/uL Absolute Neuts (auto) 15.6 H (2.0-8.3) x10*3/uL Absolute Nucleated RBC 0.000 (0.0-0.012) X10*3/uL Nucleated RBC % (auto) 0.0 (0.0-0.2) /100WBC VBG pH 7.50 H (7.32-7.43) VBG pCO2 34 mmHg VBG pO2 51 mmHg VBG HCO3 27 H (22-26) mmol/L VBG O2 Saturation 82.0 % VBG Base Excess 4.3 mmol/L Sodium 138 (135-145) mmol/L Potassium 3.8 (3.3-5.1) mmol/L Chloride 104 (96-108) mmol/L Carbon Dioxide 25 (22-29) mmol/L Anion Gap 13 (12-20) BUN 12 (9-16) mg/dL Creatinine 0.77 (0.5-1.4) mg/dL Estim Creat Clear Calc 54.7 Estimated GFR > 60 Random Glucose 109 (60-115) mg/dL Lactic Acid 1.8 (0.5-2.0) mmol/L Calcium 8.9 (8.4-10.2) mg/dL Total Bilirubin 0.6 (0.0-1.0) mg/dL AST 30 (5-31) U/L ALT 17 (0-31) U/L Alkaline Phosphatase 132 H (39-117) U/L Troponin I High Sens < 2.7 (<3.5-17.0) ng/L B-Natriuretic Peptide 18 (<100) pg/mL Total Protein 6.7 (6.5-8.0) g/dL Albumin 3.7 (3.5-5.0) g/dL Urine Color Urine Appearance Urine pH (5.0-9.0) Ur Specific [place] (1.005-1.025) Urine Protein (Neg-Trace) mg/dL Urine Glucose (UA) (Negative) mg/dL Urine Ketones (Negative) mg/dL Urine Blood (Negative) Urine Nitrite (Negative) Ur Leukocyte Esterase (Negative) Urine RBC (0-2) /HPF Urine WBC (0-5) /HPF Ur Squamous Epith Cells (0-2) /HPF Urine Bacteria (None Seen) Hyaline Casts (0-2) /LPF Influenza Type A (PCR) NEGATIVE (Negative) Influenza Type B (PCR) NEGATIVE (Negative) RSV RNA Qual (PCR) NEGATIVE (Negative) SARS-CoV-2 RNA (RT-PCR) NEGATIVE (Negative) 11/14/24 Range/Units 00:32 WBC (4.8-10.8) X10*3/uL RBC (4.20-5.50) X10*6/uL Hgb (12.0-16.0) g/dl Hct (37.0-47.0) % MCV (80.0-98.0) fL MCH (27.0-33.0) pg MCHC (31.0-35.0) g/dl RDW (11.0-16.0) % Plt Count (160-400) X10*3/uL MPV (9.4-12.3) fL Immature Gran % (Auto) (0.0-0.4) % Neut % (Auto) (45-73) % Lymph % (Auto) (20-40) % Wright % (Auto) (2-11) % Eos % (Auto) (0-4) % Baso % (Auto) (0-2) % Lymph # (Auto) (1.2-4.9) X10*3/uL Wright # (Auto) (0.1-1.2) X10*3/uL Eos # (Auto) (0.0-0.4) X10*3/uL Baso # (Auto) (0.0-0.2) X10*3/uL Abs Immat Gran (auto) (0.00-0.03) X10*3/uL Absolute Neuts (auto) (2.0-8.3) x10*3/uL Absolute Nucleated RBC (0.0-0.012) X10*3/uL Nucleated RBC % (auto) (0.0-0.2) /100WBC VBG pH (7.32-7.43) VBG pCO2 mmHg VBG pO2 mmHg VBG HCO3 (22-26) mmol/L VBG O2 Saturation % VBG Base Excess mmol/L Sodium (135-145) mmol/L Potassium (3.3-5.1) mmol/L Chloride (96-108) mmol/L Carbon Dioxide (22-29) mmol/L Anion Gap (12-20) BUN (9-16) mg/dL Creatinine (0.5-1.4) mg/dL Estim Creat Clear Calc Estimated GFR Random Glucose (60-115) mg/dL Lactic Acid (0.5-2.0) mmol/L Calcium (8.4-10.2) mg/dL Total Bilirubin (0.0-1.0) mg/dL AST (5-31) U/L ALT (0-31) U/L Alkaline Phosphatase (39-117) U/L Troponin I High Sens (<3.5-17.0) ng/L B-Natriuretic Peptide (<100) pg/mL Total Protein (6.5-8.0) g/dL Albumin (3.5-5.0) g/dL Urine Color Yellow Urine Appearance Clear Urine pH 6.5 (5.0-9.0) Ur Specific [place] 1.010 (1.005-1.025) Urine Protein Negative (Neg-Trace) mg/dL Urine Glucose (UA) Negative (Negative) mg/dL Urine Ketones Trace (Negative) mg/dL Urine Blood Trace H (Negative) Urine Nitrite Negative (Negative) Ur Leukocyte Esterase Negative (Negative) Urine RBC 0-2 (0-2) /HPF Urine WBC 0-5 (0-5) /HPF Ur Squamous Epith Cells 0-2 (0-2) /HPF Urine Bacteria None Seen (None Seen) Hyaline Casts 0-2 (0-2) /LPF Influenza Type A (PCR) (Negative) Influenza Type B (PCR) (Negative) RSV RNA Qual (PCR) (Negative) SARS-CoV-2 RNA (RT-PCR) (Negative) Independent Interpretation I performed an independent interpretation of an: EKG and CT Scan Radiology Impression Discussion of test interpretation with radiology: I have reviewed the radiologist's reading. Radiologist Impression: Detail limited by artifacts. No pulmonary embolism. No thoracic aortic aneurysm or dissection. No consolidation. No mass. Mild bibasilar atelectasis. No pleural effusion. No pneumothorax. No cardiomegaly. No pericardial effusion. No pathologically enlarged lymph nodes. No acute fracture. Degenerative changes in the spine. Status post cholecystectomy. Diffusely hypodense liver consistent with hepatic steatosis. Elevation of the right hemidiaphragm. Independent Historian Clinical information obtained from an independent historian. History obtained from or confirmed by: Other (Daughters) Critical Care Time Critical Care Time Critical Care Time: Yes Total Critical Care Time: 60 Attestation: I have personally provided critical care time. Time includes review of lab data, radiology results, discussion with consultants, and monitoring for potential decompensation. Intervention performed as documented. Discharge Plan Discharge Clinical Impression: Hypoxia Patient Disposition: Admitted As Inpatient Prescriptions: No Action olanzapine 20 mg tablet 20 mg PO DAILY escitalopram oxalate 10 mg tablet 10 mg PO DAILY trazodone 100 mg tablet 100 mg PO BEDTIME PRN benztropine 0.5 mg tablet 0.5 mg PO DAILY Qty: 90 3RF (DME) cane Device See Rx Instructions .Route Qty: 1 0RF Rx Instructions: As directed, 999 days trazodone 50 mg tablet 50 - 150 mg PO BEDTIME PRN ascorbic acid (vitamin C) 1,000 mg tablet 1 g PO DAILY 90 Days Qty: 90 1RF methenamine hippurate 1 gram tablet 1 g PO DAILY 90 Days Qty: 90 1RF memantine 28 mg capsule,sprinkle,ER 24hr 28 mg PO DAILY Qty: 30 3RF Rx Instructions: Take this medication after completion of 21 mg PO daily of Memantine. Take this dose 28mg PO daily for ongoing maintenance therapy. Print Language: Khmer
[2024-11-13] MEDS: 0.9 % Sodium Chloride 2,000 ML 999 ML IVCONT (23:07)
[2024-11-13] MEDS: cefTRIAXone sodium 1 GM VIAL IVPUSH (23:21)
--- NOTE | 2024-11-13 23:22 | MHC.EDTECH ---
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
[2024-11-13 23:24] LABS: MANUAL DIFF FLAG NO
[2024-11-13 23:27] LABS: Basophils Absolute Auto 0.1 X10*3/uL (0.0-0.2); Basophils Percent Auto 0.3 % (0-2); Eosinophils Percent Auto 0.1 % (0-4); Hemoglobin 12.1 g/dl (12.0-16.0); Imm Gran Abs Auto 0.11 X10*3/uL (0.00-0.03); Imm Gran Pct Auto 0.6 % (0.0-0.4); Lymphocytes Absolute Auto 1.4 X10*3/uL (1.2-4.9); Lymphocytes Percent Auto 7.7 % (20-40); Mean Corpuscular HGB Conc 33.6 g/dl (31.0-35.0); Mean Corpuscular Hemoglobin 29.5 pg (27.0-33.0); Mean Corpuscular Volume 87.8 fL (80.0-98.0); Mean Platelet Volume 8.5 fL (9.4-12.3); Monocytes Absolute Auto 0.8 X10*3/uL (0.1-1.2); Monocytes Percent Auto 4.7 % (2-11); Neutrophils Absolute Auto 15.6 x10*3/uL (2.0-8.3); Neutrophils Percent Auto 86.6 % (45-73); Platelet Count 368 X10*3/uL (160-400); Red Cell Distribution Width 12.7 % (11.0-16.0)
[2024-11-13 23:34] LABS: Venous Blood Gas Refer to POC result
[2024-11-13 23:34] LABS: VBG Base Excess 4.3 mmol/L; VBG HCO3 27 mmol/L (22-26); VBG pCO2 34 mmHg; VBG pO2 51 mmHg
[2024-11-13] MEDS: Azithromycin 500 MG in 0.9 % Sodium Chloride 250 ML 125 MG IV (23:34)
[2024-11-13 23:43] LABS: Alanine Aminotransferase 17 U/L (0-31); Albumin Level 3.7 g/dL (3.5-5.0); Alkaline Phosphatase 132 U/L (39-117); Anion Gap 13 (12-20); Aspartate Amino Transferase 30 U/L (5-31); Bilirubin Total 0.6 mg/dL (0.0-1.0); Blood Urea Nitrogen 12 mg/dL (9-16); Calcium 8.9 mg/dL (8.4-10.2); Carbon Dioxide 25 mmol/L (22-29); Chloride 104 mmol/L (96-108); Creatinine Clr Calc Pharmacy 54.7; Estimated Glomerular Filt Rate > 60; Glucose Random 109 mg/dL (60-115); Potassium 3.8 mmol/L (3.3-5.1); Sodium 138 mmol/L (135-145); Total Protein 6.7 g/dL (6.5-8.0)
[2024-11-13 23:47] LABS: B Type Natriuretic Peptide 18 pg/mL (<100)
[2024-11-13 23:53] LABS: Troponin-I High Sensitivity < 2.7 ng/L (<3.5-17.0)
[2024-11-14] VITALS (7 sets, daily range): BP systolic 111–127; BP diastolic 47–77; PULSE 87–110; RESP 16–20; TEMP 36.8–37.6; O2SAT 92–100; BMI 26.6
[2024-11-14 00:02] LABS: Lactic Acid 1.8 mmol/L (0.5-2.0)
--- NOTE | 2024-11-14 00:05 | PC.NURSE ---
trial for RA per MD, sats drop to 89-90% on RA at rest. MD made aware. pt placed back on o2.
[2024-11-14 00:08] LABS: Influenza A PCR NEGATIVE (Negative); Influenza B PCR NEGATIVE (Negative); Resp Syncy Virus RNA Qual PCR NEGATIVE (Negative); SARS COV2 PCR INHOUSE NEGATIVE (Negative)
[2024-11-14] MEDS: Acetaminophen 325 MG TABLET 975 MG PO ×2 (00:09→11:57)
[2024-11-14 00:39] LABS: Appearance Urine Clear; Color Urine Yellow; Glucose Urine UA Negative (Negative); Leukocyte Esterase Urine Negative (Negative); Nitrite Urine Negative (Negative); PH 6.5 (5.0-9.0); UMIC TRIGGER UACC YES; Urine Blood Trace (Negative); Urine Ketones Trace mg/dL (Negative); Urine Protein Negative (Neg-Trace)
--- NOTE | 2024-11-14 00:46 | PC.NURSE ---
straight cath done pt tolerated well. family left, concern for elopement/fall, VMT placed for safety. pt currently in ct for chest cta as ordered.
[2024-11-14 00:53] LABS: Bacteria Urine None Seen (None Seen); Hyaline Casts Urine 0-2 /LPF (0-2); RBC Urine 0-2 /HPF (0-2); Squamous Epithelial Cell Urine 0-2 /HPF (0-2); WBC Urine 0-5 /HPF (0-5)
[2024-11-14] MEDS: iohexoL 350 MG/ML 100 ML INFUS..BTL 65 ML IV (00:54)
--- NOTE | 2024-11-14 02:32 | MHC.EDTECH ---
0200 rounding done ,vitals taken ,Patient awake and laying in bed .
[2024-11-14 02:58] LABS: Amphetamine Screen Urine Not Detected (Not Detect); Barbiturates, Urine Not Detected (Not Detect); Benzodiazepines Screen Urine Not Detected (Not Detect); Buprenorphine Scr Not Detected (Not Detect); Cannabinoid Screen Urine Not Detected (Not Detect); Cocaine Screen Urine Not Detected (Not Detect); Fentanyl, urine Not Detected (Not Detect); Methadone Screen, Urine Not Detected (Not Detect); Opiate Screen Urine Not Detected (Not Detect); Oxycodone Screen Urine Not Detected (Not Detect); Phencyclidine Screen Urine Not Detected (Not Detect)
--- NOTE | 2024-11-14 03:04 | P.HPHOSP_ITS ---
History of Present Illness Date of Service: 11/14/24 Attending physician on admission: Huseyin Milton Chief Complaint: Patient was found 3 miles away from home HPI obtained from medical record and ED provider. Irma Thomas is a 69 years old woman with past medical history significant for Alzheimer's dementia with psychotic disturbance, anxiety and depression was brought to the ED after she was found 3 miles away from home. She was missing for 3 hours. It seems like the patient was trying to get to her own home. According to ED provider the patient's daughter commented that the patient has been coughing a lot lately. Wound evaluation the patient was alert and awake, however, she was unable to provide a meaningful history as she was very confused. ED is unclear to me if this is her baseline. The patient told me that she lives with her who was killed and also said that somebody is trying to poison her. Per chart reviewed the patient takes dementia medications, antipsychotics and antidepressive. Recently treated for UTI. In the emergency department, she was found to have an oxygen saturation of 83% on room air and is currently requiring 2 L/min supplemental oxygen via nasal cannula. Blood workup was remarkable for leukocytosis of 18.0, hemoglobin 12.1 and platelets 368. Venous gas no respiratory acidosis. Lactic acid is normal. There are no electrolyte imbalances. Renal and liver function are unremarkable. BNP, TSH and troponins are normal. Urine drug screen is is negative for benzos, cocaine, marijuana, amphetamine, PCP comorbidities, fentanyl, methadone, oxycodone, and buprenorphine. Viral testing for COVID-19, influenza RSV is negative. Chest CTA is negative for PE or any other acute findings. ECG normal sinus tachycardia, 103 beats per minute and no obvious ischemic changes. ED Tx: NS 2 L of homeless, ceftriaxone 1 g IV, azithromycin 500 mg IV, Tylenol 975 mg p.o., trazodone 100 mg p.o. Review of Systems 2 Review of Systems: Yes Unobtainable due to mental status PMFSH Medical History Extrapyramidal and movement disorder Alzheimer's dementia Alzheimer's dementia Depression Anxiety Family History Mother Alzheimer's dementia HTN (hypertension) Sister Alzheimer's dementia Father Cardiovascular disease Other FH: mental illness Substance abuse Surgical History Hx of cholecystectomy Social History Housing: House Alcohol intake: never Patient Tobacco Use Status: Never used Tobacco Smoked in Last 30 Days: No e-Cigarette/Vaping Use: Never Used Second Hand Smoke Exposure: No Use of substances other than those prescribed or required for medical reasons: No Advance Directives: Yes Advance Directives Information Provided: Yes Advance Directives on File: No Do you have a plan to hurt others: No Plan service: No Current occupational status: retired Cognitive needs: Yes (Alzheimers) Hearing needs: No Vision needs: Yes Meds Allergies Allergy/AdvReac Type Severity Reaction Status Date / Time codeine Allergy Unknown Verified 11/13/24 22:35 Active Medications: Current Medications Acetaminophen (Acetaminophen 325 Mg Tablet) 975 mg PO Q6H PRN PRN Reason: Pain, Mild 1-3,fever,headache Sodium Chloride (0.9 % Sodium Chloride Flush 3 Ml Syringe) 3 ml IVFLUSH [facility] Medications ?Medication ?Instructions ?Recorded ?Confirmed ?Last Taken ?Type escitalopram oxalate 10 mg tablet 10 mg PO DAILY 10/31/23 05/13/24 Unknown History olanzapine 20 mg tablet 20 mg PO DAILY 10/31/23 05/13/24 Unknown History trazodone 100 mg tablet 100 mg PO BEDTIME PRN 10/31/23 05/13/24 Unknown History trazodone 50 mg tablet 50 - 150 mg PO BEDTIME PRN 07/02/24 Unknown History Physical Exam 2 Vital Signs and Narrative: Vital Signs: Last Vital Signs Temp 98.2 F 11/14/24 02:30 Pulse 106 H 11/14/24 02:30 Resp 20 11/14/24 02:30 BP 121/77 11/14/24 02:30 Pulse Ox 93 11/14/24 02:30 O2 Del Method Nasal Cannula 11/14/24 02:30 O2 Flow Rate 2 11/14/24 02:30 BMI result Body Mass Index 26.3 Constitutional - Awake and Alert, No apparent distress. Nasal cannula in place. HEENT - PERRL, EOMI Heart - mildly tachycardic, no murmurs. Lungs - Normal lung expansion, Normal respiratory effort, No respiratory distress, CTA bilaterally Abdomen - NT / ND; +BS; No rebound or guarding Extremities - no calf tenderness bilaterally, no swelling. Bilateral knee: mild tenderness but no evidence of trauma or effusions. Musculoskeletal - Normal inspection, normal ROM Skin - Warm/Dry, intact. No pallor. No jaundice. Neurological - Alert & oriented to person and place. No facial droop. No focal weakness grossly noted. Normal speech. Psychological - Paranoid thoughts. Results Labs 11/13/24 23:16 11/13/24 23:16 Labs: Laboratory Results - last 24 hr 11/13/24 11/13/24 11/13/24 23:14 23:16 23:29 MCV 87.8 MCH 29.5 MCHC 33.6 RDW 12.7 Plt Count 368 MPV 8.5 L Immature Gran % (Auto) 0.6 H Neut % (Auto) 86.6 H Lymph % (Auto) 7.7 L [place] % (Auto) 4.7 Eos % (Auto) 0.1 Baso % (Auto) 0.3 Lymph # (Auto) 1.4 [place] # (Auto) 0.8 Eos # (Auto) 0.0 Baso # (Auto) 0.1 Abs Immat Gran (auto) 0.11 H Absolute Neuts (auto) 15.6 H Absolute Nucleated RBC 0.000 Nucleated RBC % (auto) 0.0 VBG pH 7.50 H VBG pCO2 34 VBG pO2 51 VBG HCO3 27 H VBG O2 Saturation 82.0 VBG Base Excess 4.3 Anion Gap 13 Estim Creat Clear Calc 54.7 Estimated GFR > 60 Random Glucose 109 Lactic Acid 1.8 Calcium 8.9 Total Bilirubin 0.6 AST 30 ALT 17 Alkaline Phosphatase 132 H Troponin I High Sens < 2.7 B-Natriuretic Peptide 18 Total Protein 6.7 Albumin 3.7 Urine Color Urine Appearance Urine pH Ur Specific [place] Urine Protein Urine Glucose (UA) Urine Ketones Urine Blood Urine Nitrite Ur Leukocyte Esterase Urine RBC Urine WBC Ur Squamous Epith Cells Urine Bacteria Hyaline Casts Urine Opiates Screen Ur Buprenorphine Scrn Ur Oxycodone Screen Urine Methadone Screen Urine Fentanyl Screen Ur Barbiturates Screen Ur Phencyclidine Scrn Ur Amphetamines Screen U Benzodiazepines Scrn Urine Cocaine Screen U Marijuana (THC) Screen Influenza Type A (PCR) NEGATIVE Influenza Type B (PCR) NEGATIVE RSV RNA Qual (PCR) NEGATIVE SARS-CoV-2 RNA (RT-PCR) NEGATIVE 11/14/24 00:32 MCV MCH MCHC RDW Plt Count MPV Immature Gran % (Auto) Neut % (Auto) Lymph % (Auto) [place] % (Auto) Eos % (Auto) Baso % (Auto) Lymph # (Auto) [place] # (Auto) Eos # (Auto) Baso # (Auto) Abs Immat Gran (auto) Absolute Neuts (auto) Absolute Nucleated RBC Nucleated RBC % (auto) VBG pH VBG pCO2 VBG pO2 VBG HCO3 VBG O2 Saturation VBG Base Excess Anion Gap Estim Creat Clear Calc Estimated GFR Random Glucose Lactic Acid Calcium Total Bilirubin AST ALT Alkaline Phosphatase Troponin I High Sens B-Natriuretic Peptide Total Protein Albumin Urine Color Yellow Urine Appearance Clear Urine pH 6.5 Ur Specific [place] 1.010 Urine Protein Negative Urine Glucose (UA) Negative Urine Ketones Trace Urine Blood Trace H Urine Nitrite Negative Ur Leukocyte Esterase Negative Urine RBC 0-2 Urine WBC 0-5 Ur Squamous Epith Cells 0-2 Urine Bacteria None Seen Hyaline Casts 0-2 Urine Opiates Screen Not Detected Ur Buprenorphine Scrn Not Detected Ur Oxycodone Screen Not Detected Urine Methadone Screen Not Detected Urine Fentanyl Screen Not Detected Ur Barbiturates Screen Not Detected Ur Phencyclidine Scrn Not Detected Ur Amphetamines Screen Not Detected U Benzodiazepines Scrn Not Detected Urine Cocaine Screen Not Detected U Marijuana (THC) Screen Not Detected Influenza Type A (PCR) Influenza Type B (PCR) RSV RNA Qual (PCR) SARS-CoV-2 RNA (RT-PCR) Assessment and Plan (1) Hypoxia: Status: Acute (2) Leukocytosis: Qualifiers: Leukocytosis type: unspecified Qualified Code(s): D72.829 - Elevated white blood cell count, unspecified Status: Acute (3) Cough: Qualifiers: Cough type: unspecified Qualified Code(s): R05.9 - Cough, unspecified Status: Acute [facility] William is a 69 y/o woman admitted with: * Cough, leukocytosis and low oxygen saturation, possible acute bronchitis. Possible underlying history of hernia. Chest CTA negative for PE or any acute process. Admit to hospitalist service. Telemetry. Pulse oximetry. Continue supplemental oxygen via nasal cannula to keep O2 sats > 90%. Blood cultures obtained in emergency department -will follow results. Continue empiric IV antibiotic therapy with azithromycin. Antitussive as needed. Continue to monitor WBC. * Anxiety and depression. Continue home medications. * Alzheimer dementia with psychiatric disturbance. Continue home medications. DVT prophylaxis: Heparin subQ Code status: Full Patient will need hospitalization for at least 2 midnights for hypoxic treatment with supplemental oxygen likely due to upper respiratory tract infection/bronchitis, empiric antibiotic therapy and close monitoring of vital signs. Quality Stroke Does the patient have a stroke diagnosis?: No VTE Prior VTE?: No VTE Risk Level:: Medical - moderate - high VTE Device Contraindication: Treatment Not Indicated VTE Drug Contraindication: N/A - Med Ordered
[2024-11-14] MEDS: traZODone HCL 100 MG TABLET PO (03:50)
[2024-11-14 04:11] LABS: Vitamin B12 1877 pg/mL (200-900)
--- NOTE | 2024-11-14 04:13 | PC.NURSE ---
Addendum entered by Gaetano Tracy RN 11/14/24 04:15: call gurrola in reach. plan of care ongoing Original Note: heavy assist to commode. scant urinary output. pt complains of bilateral knee pain. while standing, pt knees will abruptly give out requiring this nurse to hold patient entire weight up. MD Perez aware/ now back in bed
--- NOTE | 2024-11-14 04:18 | MHC.EDTECH ---
Patient was up to bedside commode,Patient was a max asst of 2 ,Pt states her legs hurt too much ,Provider and RN Abisai aware ,void drops of urine ,Jessenia care given ,Patient back in bed ,vitals taken ,Patient drank 120 ml juice .All safety measure in Place ,Plan of care continue ,Patient belongings list done .
--- NOTE | 2024-11-14 05:24 | MHC.EDTECH ---
Patient up to bedside commode ,was max asst of 2 person ,care given ,Patient was moved into a hospital bed for comfort .
[2024-11-14 05:57] LABS: MANUAL DIFF FLAG NO
[2024-11-14 06:13] LABS: Anion Gap 11 (12-20); Blood Urea Nitrogen 9 mg/dL (9-16); Calcium 8.3 mg/dL (8.4-10.2); Carbon Dioxide 26 mmol/L (22-29); Chloride 109 mmol/L (96-108); Creatinine Clr Calc Pharmacy 62.9; Estimated Glomerular Filt Rate > 60; Glucose Random 105 mg/dL (60-115); Potassium 3.5 mmol/L (3.3-5.1); Sodium 142 mmol/L (135-145)
[2024-11-14 06:18] LABS: Basophils Absolute Auto 0.1 X10*3/uL (0.0-0.2); Basophils Percent Auto 0.5 % (0-2); Eosinophils Percent Auto 0.1 % (0-4); Hematocrit 37.6 % (37.0-47.0); Hemoglobin 12.2 g/dl (12.0-16.0); Imm Gran Abs Auto 0.08 X10*3/uL (0.00-0.03); Imm Gran Pct Auto 0.6 % (0.0-0.4); Lymphocytes Absolute Auto 1.6 X10*3/uL (1.2-4.9); Lymphocytes Percent Auto 11.1 % (20-40); Mean Corpuscular HGB Conc 32.4 g/dl (31.0-35.0); Mean Corpuscular Volume 89.3 fL (80.0-98.0); Mean Platelet Volume 8.6 fL (9.4-12.3); Monocytes Absolute Auto 0.9 X10*3/uL (0.1-1.2); Monocytes Percent Auto 6.2 % (2-11); Neutrophils Absolute Auto 11.7 x10*3/uL (2.0-8.3); Neutrophils Percent Auto 81.5 % (45-73); Platelet Count 352 X10*3/uL (160-400); Red Blood Count 4.21 X10*6/uL (4.20-5.50); Red Cell Distribution Width 12.8 % (11.0-16.0); White Blood Count 14.3 X10*3/uL (4.8-10.8)
[2024-11-14 08:15] LABS: C Reactive Protein 2.12 mg/dL (< or = 0.50)
[2024-11-14 08:34] LABS: Procalcitonin 0.07 ng/mL
--- NOTE | 2024-11-14 08:46 | PHA.MEDREC ---
Addendum entered by Samina Andres [facility] 11/14/24 13:23: Nurse Jenni said family ( and daughter) said patient does not take benztropine nor olanzapine anymore. Addendum entered by Alvarado Rm, [facility] 11/14/24 09:17: MED REC CHECKED BY [facility] Original Note: Pharmacy Consult ? Medication Reconciliation Pharmacy has completed the medication reconciliation. Spoke to patient daughter Diana over the phone to confirm med list. Daughter was able to name all of patients medication. Daughter state patient is no longer taking Benztropine 0.5 mg. Daughter confirmed patient is on day 3 of Cipro 500 mg BID for 5 days. Patient last had her medications yesterday afternoon.
--- NOTE | 2024-11-14 08:47 | MHC.CM.PN ---
IMM 11/14. Pt self-care, lives at home with others, she will need assistance with transport home. Education provided on HCP, declined to complete one at this time stating she needs to think about it first. PCP: Dr. Ghazal Hong
[2024-11-14] MEDS: Heparin Sodium,Porcine 5,000 UNIT/ML VIAL 5000 UNIT SUBCUT ×2 (09:32→16:20)
--- NOTE | 2024-11-14 11:11 | HO.PM.IMPN ---
Subjective Subjective Date of Service: 11/14/24 Interval History: This history was taken in Indonesian from the patient. Endorses cough Denies abd pain or dysuria but unreliable historian Review of Systems Review of Systems: Yes all other systems are reviewed and are negative Physical Exam Vital Signs: Vital Signs: Last Vital Signs Temp 99.1 F 11/14/24 08:17 Pulse 99 11/14/24 08:17 Resp 18 11/14/24 08:17 BP 126/74 11/14/24 08:17 Pulse Ox 94 11/14/24 08:17 O2 Del Method Nasal Cannula 11/14/24 08:17 O2 Flow Rate 2 11/14/24 08:17 BMI result Body Mass Index 26.6 Gen: pleasantly confused HEENT: sclera anicteric, moist mucus membranes Neck: supple Lungs: clear to auscultation bilaterally Heart: regular rate and rhythm, no murmurs Abd: soft, non-tender, non-distended Ext: no edema Skin: warm/well-perfused Neuro: alert and oriented to self/city but not date/location, no focal findings Psych: impaired insight, normal affect Objective Data Active Medications Acetaminophen (Acetaminophen 325 Mg Tablet) 975 mg PO Q6H PRN PRN Reason: Pain, Mild 1-3,fever,headache Ascorbic Acid (Ascorbic Acid 500 Mg Tablet) 1,000 mg PO DAILY [facility] Benztropine Mesylate (Benztropine Mesylate 0.5 Mg Tablet) 0.5 mg PO DAILY [facility] Cefuroxime Axetil (Cefuroxime Axetil 250 Mg Tablet) 250 mg PO Q12H [facility] Escitalopram Oxalate (Escitalopram Oxalate 10 Mg Tablet) 10 mg PO DAILY [facility] Guaifenesin (Guaifenesin 200 Mg/10 Ml 10 Ml Liquid) 10 ml PO Q6H PRN PRN Reason: Cough Heparin Sodium (Porcine) (Heparin Sodium,Porcine 5,000 Unit/Ml Vial) 5,000 unit SUBCUT Q8H [facility] Last Admin: 11/14/24 09:32 Dose: 5,000 unit Documented By: JACOBOFAPedro Memantine (Memantine Hcl 5 Mg Tablet) 10 mg PO BID [facility] Olanzapine (Olanzapine 10 Mg Tablet) 20 mg PO DAILY [facility] Sodium Chloride (0.9 % Sodium Chloride Flush 3 Ml Syringe) 3 ml IVFLUSH QSHIFT [facility] Last Admin: 11/14/24 08:04 Dose: Not Given Documented By: LAUREL Non-Admin Reason: Not In Room Trazodone HCl (Trazodone Hcl 50 Mg Tablet) 50 - 100 mg PO BEDTIME PRN PRN Reason: Insomnia Labs 11/14/24 05:40 11/14/24 05:40 Labs: Laboratory Results - last 24 hr 11/13/24 11/13/24 11/13/24 23:14 23:16 23:29 MCV 87.8 MCH 29.5 MCHC 33.6 RDW 12.7 Plt Count 368 MPV 8.5 L Immature Gran % (Auto) 0.6 H Neut % (Auto) 86.6 H Lymph % (Auto) 7.7 L [place] % (Auto) 4.7 Eos % (Auto) 0.1 Baso % (Auto) 0.3 Lymph # (Auto) 1.4 [place] # (Auto) 0.8 Eos # (Auto) 0.0 Baso # (Auto) 0.1 Abs Immat Gran (auto) 0.11 H Absolute Neuts (auto) 15.6 H Absolute Nucleated RBC 0.000 Nucleated RBC % (auto) 0.0 VBG pH 7.50 H VBG pCO2 34 VBG pO2 51 VBG HCO3 27 H VBG O2 Saturation 82.0 VBG Base Excess 4.3 Anion Gap 13 Estim Creat Clear Calc 54.7 Estimated GFR > 60 Random Glucose 109 Lactic Acid 1.8 Calcium 8.9 Total Bilirubin 0.6 AST 30 ALT 17 Alkaline Phosphatase 132 H Total Creatine Kinase 205 H Troponin I High Sens < 2.7 C-Reactive Protein B-Natriuretic Peptide 18 Total Protein 6.7 Albumin 3.7 Vitamin B12 Procalcitonin TSH 2.20 Urine Color Urine Appearance Urine pH Ur Specific [place] Urine Protein Urine Glucose (UA) Urine Ketones Urine Blood Urine Nitrite Ur Leukocyte Esterase Urine RBC Urine WBC Ur Squamous Epith Cells Urine Bacteria Hyaline Casts Urine Opiates Screen Ur Buprenorphine Scrn Ur Oxycodone Screen Urine Methadone Screen Urine Fentanyl Screen Ur Barbiturates Screen Ur Phencyclidine Scrn Ur Amphetamines Screen U Benzodiazepines Scrn Urine Cocaine Screen U Marijuana (THC) Screen Influenza Type A (PCR) NEGATIVE Influenza Type B (PCR) NEGATIVE RSV RNA Qual (PCR) NEGATIVE SARS-CoV-2 RNA (RT-PCR) NEGATIVE 11/14/24 11/14/24 11/14/24 00:32 03:10 05:40 MCV 89.3 MCH 29.0 MCHC 32.4 RDW 12.8 Plt Count 352 MPV 8.6 L Immature Gran % (Auto) 0.6 H Neut % (Auto) 81.5 H Lymph % (Auto) 11.1 L [place] % (Auto) 6.2 Eos % (Auto) 0.1 Baso % (Auto) 0.5 Lymph # (Auto) 1.6 [place] # (Auto) 0.9 Eos # (Auto) 0.0 Baso # (Auto) 0.1 Abs Immat Gran (auto) 0.08 H Absolute Neuts (auto) 11.7 H Absolute Nucleated RBC 0.000 Nucleated RBC % (auto) 0.0 VBG pH VBG pCO2 VBG pO2 VBG HCO3 VBG O2 Saturation VBG Base Excess Anion Gap 11 L Estim Creat Clear Calc 62.9 Estimated GFR > 60 Random Glucose 105 Lactic Acid Calcium 8.3 L D Total Bilirubin AST ALT Alkaline Phosphatase Total Creatine Kinase Troponin I High Sens C-Reactive Protein 2.12 H B-Natriuretic Peptide Total Protein Albumin Vitamin B12 1877 H Procalcitonin 0.07 TSH Urine Color Yellow Urine Appearance Clear Urine pH 6.5 Ur Specific [place] 1.010 Urine Protein Negative Urine Glucose (UA) Negative Urine Ketones Trace Urine Blood Trace H Urine Nitrite Negative Ur Leukocyte Esterase Negative Urine RBC 0-2 Urine WBC 0-5 Ur Squamous Epith Cells 0-2 Urine Bacteria None Seen Hyaline Casts 0-2 Urine Opiates Screen Not Detected Ur Buprenorphine Scrn Not Detected Ur Oxycodone Screen Not Detected Urine Methadone Screen Not Detected Urine Fentanyl Screen Not Detected Ur Barbiturates Screen Not Detected Ur Phencyclidine Scrn Not Detected Ur Amphetamines Screen Not Detected U Benzodiazepines Scrn Not Detected Urine Cocaine Screen Not Detected U Marijuana (THC) Screen Not Detected Influenza Type A (PCR) Influenza Type B (PCR) RSV RNA Qual (PCR) SARS-CoV-2 RNA (RT-PCR) Assessment and Plan (1) Leukocytosis: Status: Acute Plan 69yo F with Alzheimer dementia, anxiety + depression found 3 miles away from home, reported to have cough, confused and delusional. Found to be mildly hypoxic but no infiltrate or PE on CTA. acute hypoxia - wean O2 as tolerated, unclear cause, no evidence of HF, will check resp virus panel, likely atelectasis leukocytosis - probably due to recently diagnosed UTI, was started on ciprofloxacin by PCP 11/12, will continue with cefuroxime, no culture available and will send but may be negative due to already being on antibiotics. WBCs improving Alzheimer dementia mood disorder - memantine, benztropine, olanzapine, escitalopram, trazodone VTE ppx - enoxaparin dispo - TBD In my clinical judgment, the patient requires continued inpatient hospitalization for the following reasons: hypoxia Total time managing care of this patient today: 35 minutes. Quality Stroke Does the patient have a stroke diagnosis?: No VTE Prior VTE?: No VTE Risk Level:: Medical - moderate - high VTE Device Contraindication: Treatment Not Indicated VTE Drug Contraindication: N/A - Med Ordered
[2024-11-14 11:48] LABS: Adenovirus PCR Not Detected (Not Detect.); Bordetella parapertussis PCR Not Detected (Not Detect.); Bordetella pertussis PCR Not Detected (Not Detect.); Chlamydia pneumoniae PCR Not Detected (Not Detect.); Coronavirus 229E PCR Not Detected (Not Detect.); Coronavirus HKU1 PCR Not Detected (Not Detect.); Coronavirus NL63 PCR Not Detected (Not Detect.); Coronavirus OC43 PCR Not Detected (Not Detect.); Human metapneumovirus PCR Not Detected (Not Detect.); Influenza A PCR Not Detected (Not Detect.); Influenza B PCR Not Detected (Not Detect.); Mycoplasma pneumoniae PCR Not Detected (Not Detect.); Parainfluenza 1 PCR Not Detected (Not Detect.); Parainfluenza 2 PCR Not Detected (Not Detect.); Parainfluenza 3 PCR Not Detected (Not Detect.); Parainfluenza 4 PCR Not Detected (Not Detect.); RSV PCR Not Detected (Not Detect.); Rhino/Enterovirus PCR Not Detected (Not Detect.)
[2024-11-14 11:54] LABS: Influenza A H1 PCR Not Detected (Not Detect.); Influenza A H1-2009 PCR Not Detected (Not Detect.); Influenza A H3 PCR Not Detected (Not Detect.); SARS-CoV-2 PCR Not Detected (Not Detect.)
[2024-11-14] MEDS: OLANZapine 10 MG TABLET 20 MG PO (11:57)
[2024-11-14] MEDS: Memantine HCl 5 MG TABLET 10 MG PO ×2 (11:57→21:51)
[2024-11-14] MEDS: Ascorbic Acid 500 MG TABLET 1000 MG PO (11:57)
[2024-11-14] MEDS: cefuroxime axetiL 250 MG TABLET PO ×2 (11:57→21:51)
[2024-11-14] MEDS: Escitalopram Oxalate 10 MG TABLET PO (11:58)
[2024-11-14] MEDS: Benztropine Mesylate 0.5 MG TABLET PO (11:58)
[2024-11-14] MEDS: 0.9 % Sodium Chloride Flush 3 ML SYRINGE IVFLUSH (16:23)
[2024-11-15] MEDS: Heparin Sodium,Porcine 5,000 UNIT/ML VIAL 5000 UNIT SUBCUT ×3 (00:31→17:34)
[2024-11-15] MEDS: 0.9 % Sodium Chloride Flush 3 ML SYRINGE IVFLUSH ×3 (00:32→17:36)
[2024-11-15 03:14] VITALS: BP 144/81; PULSE 99; RESP 16; TEMP 36.3; O2SAT 95
[2024-11-15 06:32] LABS: Hematocrit 35.8 % (37.0-47.0); Hemoglobin 11.8 g/dl (12.0-16.0); Mean Corpuscular Hemoglobin 28.9 pg (27.0-33.0); Mean Corpuscular Volume 87.7 fL (80.0-98.0); Mean Platelet Volume 8.8 fL (9.4-12.3); Platelet Count 338 X10*3/uL (160-400); Red Blood Count 4.08 X10*6/uL (4.20-5.50); Red Cell Distribution Width 13.2 % (11.0-16.0); White Blood Count 9.2 X10*3/uL (4.8-10.8)
[2024-11-15 06:39] LABS: Anion Gap 13 (12-20); Blood Urea Nitrogen 7 mg/dL (9-16); Calcium 8.4 mg/dL (8.4-10.2); Carbon Dioxide 27 mmol/L (22-29); Chloride 106 mmol/L (96-108); Creatinine Clr Calc Pharmacy 62.3; Estimated Glomerular Filt Rate > 60; Glucose Random 94 mg/dL (60-115); Potassium 3.2 mmol/L (3.3-5.1); Sodium 143 mmol/L (135-145)
[2024-11-15 07:33] VITALS: BP 131/63; PULSE 89; RESP 16; TEMP 36.2; O2SAT 93
[2024-11-15] MEDS: Escitalopram Oxalate 10 MG TABLET PO (09:40)
[2024-11-15] MEDS: cefuroxime axetiL 250 MG TABLET PO ×2 (09:40→21:58)
[2024-11-15] MEDS: Memantine HCl 5 MG TABLET 10 MG PO ×2 (09:40→20:21)
[2024-11-15] MEDS: Ascorbic Acid 500 MG TABLET 1000 MG PO (09:40)
[2024-11-15] MEDS: Potassium Chloride Packet 20 MEQ PACKET 40 MEQ PO (09:42)
--- NOTE | 2024-11-15 10:46 | P.PNIM_ITS ---
Subjective Subjective Date of Service: 11/15/24 Interval History: history per daughter pt sleepy now; per daughter stopped olanzapine + benztropine several months ago due to drowziness she would like hte mother eventually to go to LTC Review of Systems Review of Systems: Yes Unobtainable due to mental status Physical Exam 2 Vital Signs: Vital Signs: Last Vital Signs Temp 97.1 F 11/15/24 07:33 Pulse 89 11/15/24 07:33 Resp 16 11/15/24 07:33 BP 131/63 11/15/24 07:33 Pulse Ox 93 11/15/24 07:33 O2 Del Method Room Air 11/15/24 07:33 O2 Flow Rate 2 11/14/24 15:09 BMI result Body Mass Index 26.6 Gen: pleasantly confused HEENT: sclera anicteric, moist mucus membranes Neck: supple Lungs: clear to auscultation bilaterally Heart: regular rate and rhythm, no murmurs Abd: soft, non-tender, non-distended Ext: no edema Skin: warm/well-perfused Neuro: alert and oriented to self/city but not date/location, no focal findings Psych: impaired insight, normal affect Objective Data Active Medications Acetaminophen (Acetaminophen 325 Mg Tablet) 975 mg PO Q6H PRN PRN Reason: Pain, Mild 1-3,fever,headache Last Admin: 11/14/24 11:57 Dose: 975 mg Documented By: ROSA Ascorbic Acid (Ascorbic Acid 500 Mg Tablet) 1,000 mg PO DAILY [facility] Last Admin: 11/15/24 09:40 Dose: 1,000 mg Documented By: EDDIE Cefuroxime Axetil (Cefuroxime Axetil 250 Mg Tablet) 250 mg PO Q12H [facility] Last Admin: 11/15/24 09:40 Dose: 250 mg Documented By: EDDIE Escitalopram Oxalate (Escitalopram Oxalate 10 Mg Tablet) 10 mg PO DAILY [facility] Last Admin: 11/15/24 09:40 Dose: 10 mg Documented By: EDDIE Guaifenesin (Guaifenesin 200 Mg/10 Ml 10 Ml Liquid) 10 ml PO Q6H PRN PRN Reason: Cough Heparin Sodium (Porcine) (Heparin Sodium,Porcine 5,000 Unit/Ml Vial) 5,000 unit SUBCUT Q8H [facility] Last Admin: 11/15/24 09:44 Dose: 5,000 unit Documented By: EDDIE Memantine (Memantine Hcl 5 Mg Tablet) 10 mg PO BID [facility] Last Admin: 11/15/24 09:40 Dose: 10 mg Documented By: EDDIE Sodium Chloride (0.9 % Sodium Chloride Flush 3 Ml Syringe) 3 ml IVFLUSH QSHIFT [facility] Last Admin: 11/15/24 09:51 Dose: 3 ml Documented By: EDDIE Trazodone HCl (Trazodone Hcl 50 Mg Tablet) 50 - 100 mg PO BEDTIME PRN PRN Reason: Insomnia Labs 11/15/24 05:36 11/15/24 05:36 Labs: Laboratory Results - last 24 hr 11/14/24 11/15/24 09:25 05:36 MCV 87.7 MCH 28.9 MCHC 33.0 RDW 13.2 Plt Count 338 MPV 8.8 L Absolute Nucleated RBC 0.000 Nucleated RBC % (auto) 0.0 Anion Gap 13 Estim Creat Clear Calc 62.3 Estimated GFR > 60 Random Glucose 94 Calcium 8.4 Magnesium 2.0 Respiratory Panel [place] See Note Adenovirus (Rapid PCR) Not Detected B.pert (TEM-PCR) Not Detected B.parapertussis DNA PCR Not Detected C. pneumoniae DNA (PCR) Not Detected Coronavirus OC43 (PCR) Not Detected Coronavirus HKU1 (PCR) Not Detected Coronavirus 229E (PCR) Not Detected Coronavirus NL63 (PCR) Not Detected Human Metapneumovir PCR Not Detected Influenza A (RT-PCR) Not Detected Influenza A (H1) PCR Not Detected Influ A (H1/09) PCR Not Detected Influenza A (H3) PCR Not Detected Influenza B (RT-PCR) Not Detected M. pneumoniae (PCR) Not Detected Parainfluenza 1 (PCR) Not Detected Parainfluenza 2 (PCR) Not Detected Parainfluenza 3 (PCR) Not Detected Parainfluenza 4 (PCR) Not Detected RSV (PCR) Not Detected Entero/Rhino (PCR) Not Detected SARS-CoV-2 RNA (RT-PCR) Not Detected Microbiology Microbiology Results: Microbiology 11/13/24 23:15 Blood Culture - Preliminary Blood - Venous No growth after 24 hours. 11/13/24 22:50 Blood Culture - Preliminary Blood - Venous No growth after 24 hours. Assessment and Plan (1) Leukocytosis: Status: Acute Plan d2 for 69yo F with Alzheimer dementia, anxiety + depression found 3 miles away from home, reported to have cough, confused and delusional. Found to be mildly hypoxic but no infiltrate or PE on CTA. acute hypoxia - weaned off O2, RPP negative, no evidence of HF; likely due to atelecatsis leukocytosis - resolved; probably due to recently diagnosed UTI, was started on ciprofloxacin by PCP 11/12, will continue with cefuroxime 11/14- rather than ciprofloxacin as quinolones are associated with encephalopathy; no culture available and will send but may be negative due to already being on antibiotics. Alzheimer dementia mood disorder - memantine, escitalopram, trazodone; d/c olanzapine + benztropine VTE ppx - enoxaparin dispo - PT/OT and CM consults; ideally STR to LTC In my clinical judgment, the patient requires continued inpatient hospitalization for the following reasons: placement Total time managing care of this patient today: 35 minutes. Quality Stroke Does the patient have a stroke diagnosis?: No VTE Prior VTE?: No VTE Risk Level:: Medical - moderate - high VTE Device Contraindication: Treatment Not Indicated VTE Drug Contraindication: N/A - Med Ordered
[2024-11-15 11:50] VITALS: BP 131/63; PULSE 89; O2SAT 93
[2024-11-15 15:45] VITALS: BP 124/41; PULSE 108; RESP 18; TEMP 36.9; O2SAT 93
[2024-11-15] MEDS: Acetaminophen 325 MG TABLET 975 MG PO (17:42)
[2024-11-15 20:00] VITALS: BP 131/63; PULSE 107; RESP 18; TEMP 36.6; O2SAT 92
[2024-11-15] MEDS: traZODone HCL 50 MG TABLET PO (20:22)
[2024-11-16] MEDS: Heparin Sodium,Porcine 5,000 UNIT/ML VIAL 5000 UNIT SUBCUT ×3 (00:09→17:30)
[2024-11-16] MEDS: 0.9 % Sodium Chloride Flush 3 ML SYRINGE IVFLUSH (00:13)
[2024-11-16 02:55] VITALS: BP 143/77; PULSE 95; RESP 16; TEMP 36.1; O2SAT 94
[2024-11-16 07:20] LABS: Anion Gap 12 (12-20); Blood Urea Nitrogen 7 mg/dL (9-16); Calcium 8.3 mg/dL (8.4-10.2); Carbon Dioxide 28 mmol/L (22-29); Chloride 107 mmol/L (96-108); Creatinine Clr Calc Pharmacy 64.2; Estimated Glomerular Filt Rate > 60; Glucose Random 97 mg/dL (60-115); Potassium 3.4 mmol/L (3.3-5.1); Sodium 144 mmol/L (135-145)
--- NOTE | 2024-11-16 07:34 | P.PNIM_ITS ---
Subjective Subjective Date of Service: 11/16/24 Interval History: Sitting up in bed. Daughter and her partner in room Seen with turkmen interpretor no complaints, awaiting placement Review of Systems Review of Systems: Yes all other systems are reviewed and are negative Physical Exam 2 Vital Signs: Vital Signs: Last Vital Signs Temp 97.0 F 11/16/24 02:55 Pulse 95 11/16/24 02:55 Resp 16 11/16/24 02:55 BP 143/77 H 11/16/24 02:55 Pulse Ox 94 11/16/24 02:55 O2 Del Method Room Air 11/16/24 02:55 O2 Flow Rate 2 11/14/24 15:09 BMI result Body Mass Index 26.6 Constitutional - Awake and Alert, No apparent distress Eyes - PERRLA, EOMI Cardiovascular - S1S2, RRR, No edema Respiratory - Normal lung expansion, Normal respiratory effort, No respiratory distress, CTA bilaterally Extremities - no calf tenderness bilaterally, no swelling Skin - Warm/Dry Neurological - Alert & oriented x3 Psychological - Appropriate affect Objective Data Active Medications Acetaminophen (Acetaminophen 325 Mg Tablet) 975 mg PO Q6H PRN PRN Reason: Pain, Mild 1-3,fever,headache Last Admin: 11/15/24 17:42 Dose: 975 mg Documented By: EDDIE Ascorbic Acid (Ascorbic Acid 500 Mg Tablet) 1,000 mg PO DAILY [facility] Last Admin: 11/15/24 09:40 Dose: 1,000 mg Documented By: EDDIE Cefuroxime Axetil (Cefuroxime Axetil 250 Mg Tablet) 250 mg PO Q12H [facility] Last Admin: 11/15/24 21:58 Dose: 250 mg Documented By: JANET Escitalopram Oxalate (Escitalopram Oxalate 10 Mg Tablet) 10 mg PO DAILY [facility] Last Admin: 11/15/24 09:40 Dose: 10 mg Documented By: EDDIE Guaifenesin (Guaifenesin 200 Mg/10 Ml 10 Ml Liquid) 10 ml PO Q6H PRN PRN Reason: Cough Heparin Sodium (Porcine) (Heparin Sodium,Porcine 5,000 Unit/Ml Vial) 5,000 unit SUBCUT Q8H [facility] Last Admin: 11/16/24 00:09 Dose: 5,000 unit Documented By: JOHN PAUL Memantine (Memantine Hcl 5 Mg Tablet) 10 mg PO BID [facility] Last Admin: 11/15/24 20:21 Dose: 10 mg Documented By: JANET Sodium Chloride (0.9 % Sodium Chloride Flush 3 Ml Syringe) 3 ml IVFLUSH QSHIFT [facility] Last Admin: 11/16/24 07:10 Dose: Not Given Documented By: LAUREL Non-Admin Reason: Previously Administered Trazodone HCl (Trazodone Hcl 50 Mg Tablet) 50 - 100 mg PO BEDTIME PRN PRN Reason: Insomnia Last Admin: 11/15/24 20:22 Dose: 50 mg Documented By: JANET Labs 11/15/24 05:36 11/16/24 06:42 Labs: Laboratory Results - last 24 hr 11/15/24 11/16/24 05:36 06:42 Hold Purple Top SEE NOTE Anion Gap 12 Estim Creat Clear Calc 64.2 Estimated GFR > 60 Random Glucose 97 Calcium 8.3 L Magnesium 2.0 Microbiology Microbiology Results: Microbiology 11/13/24 23:15 Blood Culture - Preliminary Blood - Venous No growth after 48 hours. 11/13/24 22:50 Blood Culture - Preliminary Blood - Venous No growth after 48 hours. 11/14/24 17:21 Urine Culture - Preliminary Urine clean catch - Clean Catch Midstream No growth to date. Assessment and Plan (1) Leukocytosis: Status: Acute Plan d2 for 69yo F with Alzheimer dementia, anxiety + depression found 3 miles away from home, reported to have cough, confused and delusional. Found to be mildly hypoxic but no infiltrate or PE on CTA. acute hypoxia - weaned off O2, RPP negative, no evidence of HF; likely due to atelecatsis leukocytosis - resolved; probably due to recently diagnosed UTI, was started on ciprofloxacin by PCP 11/12, will continue with cefuroxime 11/14- rather than ciprofloxacin as quinolones are associated with encephalopathy; no culture available and will send but may be negative due to already being on antibiotics. Alzheimer dementia mood disorder - memantine, escitalopram, trazodone; d/c olanzapine + benztropine VTE ppx - heparin dispo - PT/OT and CM consults; ideally STR to LTC In my clinical judgment, the patient requires continued inpatient hospitalization for the following reasons: placement Total time managing care of this patient today: 35 minutes. Quality Stroke Does the patient have a stroke diagnosis?: No VTE Prior VTE?: No VTE Risk Level:: Medical - moderate - high VTE Device Contraindication: Treatment Not Indicated VTE Drug Contraindication: N/A - Med Ordered
[2024-11-16 07:57] VITALS: BP 136/71; PULSE 98; RESP 18; TEMP 36.5; O2SAT 94
[2024-11-16] MEDS: Memantine HCl 5 MG TABLET 10 MG PO ×2 (08:28→23:07)
[2024-11-16] MEDS: Ascorbic Acid 500 MG TABLET 1000 MG PO (08:28)
[2024-11-16] MEDS: Escitalopram Oxalate 10 MG TABLET PO (08:28)
[2024-11-16] MEDS: Acetaminophen 325 MG TABLET 975 MG PO (08:28)
[2024-11-16] MEDS: cefuroxime axetiL 250 MG TABLET PO ×2 (11:38→23:07)
[2024-11-16 15:32] VITALS: BP 152/70; PULSE 87; RESP 16; TEMP 36.3; O2SAT 97
--- NOTE | 2024-11-16 16:10 | PC.NURSE ---
Pt pulled out IV. Camera in room. No IV meds ordered. Ok to leave without access per provider.
--- NOTE | 2024-11-16 18:22 | PC.NURSE ---
Bladder scanned @ 1815 for 267. Last void @ 1430. No urge to void at present time.
[2024-11-16 19:10] VITALS: BP 147/76; PULSE 102; RESP 18; TEMP 36.6; O2SAT 94
--- NOTE | 2024-11-17 00:42 | PC.NURSE ---
late note 11/16 0130 am bladder scan for 894ml str cath order and drained 600 ml and pt voided after
[2024-11-17] MEDS: Heparin Sodium,Porcine 5,000 UNIT/ML VIAL 5000 UNIT SUBCUT ×3 (01:22→16:32)
[2024-11-17 03:03] VITALS: BP 136/83; PULSE 100; RESP 20; TEMP 36.8; O2SAT 96
--- NOTE | 2024-11-17 04:30 | PC.NURSE ---
patient bladder scanned around midnight because she had not voided since the day shift & known to retain urine. [address] Fuentes notified and aware patient has been straight cath twice already and this would be her 3rd time. straight cath output 600 mL with PVR of 0 mL.
--- NOTE | 2024-11-17 07:30 | P.PNIM_ITS ---
Subjective Subjective Date of Service: 11/17/24 Interval History: No new issues, reported, awaiting placement Physical Exam 2 Vital Signs: Vital Signs: Last Vital Signs Temp 98.3 F 11/17/24 03:03 Pulse 100 11/17/24 03:03 Resp 20 11/17/24 03:03 BP 136/83 11/17/24 03:03 Pulse Ox 96 11/17/24 03:03 O2 Del Method Room Air 11/17/24 03:03 O2 Flow Rate 2 11/14/24 15:09 BMI result Body Mass Index 26.6 Constitutional - Awake and Alert, No apparent distress Cardiovascular - S1S2, RRR, No edema Respiratory - Normal lung expansion, Normal respiratory effort, No respiratory distress, CTA bilaterally Extremities - no calf tenderness bilaterally, no swelling Skin - Warm/Dry Neurological - Alert & oriented x3 Psychological - Appropriate affect Objective Data Active Medications Acetaminophen (Acetaminophen 325 Mg Tablet) 975 mg PO Q6H PRN PRN Reason: Pain, Mild 1-3,fever,headache Last Admin: 11/16/24 08:28 Dose: 975 mg Documented By: LAUREL Ascorbic Acid (Ascorbic Acid 500 Mg Tablet) 1,000 mg PO DAILY [facility] Last Admin: 11/16/24 08:28 Dose: 1,000 mg Documented By: LAUREL Cefuroxime Axetil (Cefuroxime Axetil 250 Mg Tablet) 250 mg PO Q12H [facility] Last Admin: 11/16/24 23:07 Dose: 250 mg Documented By: BAKARI Escitalopram Oxalate (Escitalopram Oxalate 10 Mg Tablet) 10 mg PO DAILY [facility] Last Admin: 11/16/24 08:28 Dose: 10 mg Documented By: LAUREL Guaifenesin (Guaifenesin 200 Mg/10 Ml 10 Ml Liquid) 10 ml PO Q6H PRN PRN Reason: Cough Heparin Sodium (Porcine) (Heparin Sodium,Porcine 5,000 Unit/Ml Vial) 5,000 unit SUBCUT Q8H [facility] Last Admin: 11/17/24 01:22 Dose: 5,000 unit Documented By: BAKARI Memantine (Memantine Hcl 5 Mg Tablet) 10 mg PO BID [facility] Last Admin: 11/16/24 23:07 Dose: 10 mg Documented By: BAKARI Sodium Chloride (0.9 % Sodium Chloride Flush 3 Ml Syringe) 3 ml IVFLUSH QSHIFT [facility] Last Admin: 11/17/24 01:22 Dose: Not Given Documented By: BAKARI Non-Admin Reason: No Access Trazodone HCl (Trazodone Hcl 50 Mg Tablet) 50 - 100 mg PO BEDTIME PRN PRN Reason: Insomnia Last Admin: 11/15/24 20:22 Dose: 50 mg Documented By: JANET Labs 11/15/24 05:36 11/16/24 06:42 Microbiology Microbiology Results: Microbiology 11/14/24 17:21 Urine Culture - Final Urine clean catch - Clean Catch Midstream No growth. Assessment and Plan (1) Leukocytosis: Status: Acute Plan 69yo F with Alzheimer dementia, anxiety + depression found 3 miles away from home, reported to have cough, confused and delusional. Found to be mildly hypoxic but no infiltrate or PE on CTA. acute hypoxia, likely d/t atelactais and resolved, sating 96% on rooma ir leukocytosis resolved; probably due to recently diagnosed UTI, was started on ciprofloxacin by PCP 11/12, will continue with cefuroxime 11/14- rather than ciprofloxacin as quinolones are associated with encephalopathy; no culture available Alzheimer dementia mood disorder memantine, escitalopram, trazodone; d/c olanzapine + benztropine VTE ppx heparin dispo PT/OT and CM consults; ideally STR to LTC In my clinical judgment, the patient requires continued inpatient hospitalization for the following reasons: placement Total time managing care of this patient today: 35 minutes. Quality Stroke Does the patient have a stroke diagnosis?: No VTE Prior VTE?: No VTE Risk Level:: Medical - moderate - high VTE Device Contraindication: Treatment Not Indicated VTE Drug Contraindication: N/A - Med Ordered
[2024-11-17 08:00] VITALS: BP 130/77; PULSE 99; RESP 16; TEMP 36.8; O2SAT 94
[2024-11-17] MEDS: Ascorbic Acid 500 MG TABLET 1000 MG PO (08:39)
[2024-11-17] MEDS: Escitalopram Oxalate 10 MG TABLET PO (08:39)
[2024-11-17] MEDS: Memantine HCl 5 MG TABLET 10 MG PO ×2 (08:39→20:19)
[2024-11-17] MEDS: cefuroxime axetiL 250 MG TABLET PO ×2 (10:24→23:03)
--- NOTE | 2024-11-17 14:58 | PC.NURSE ---
Pt seen on this date, particiated in [facility] screen. Pt scored a 5/30, indicating severe cognitive disfunction. Family present during screening process, were educated on the results. This selling underwriter recommended continuous supervision for pt's safety while in the community.
--- NOTE | 2024-11-17 15:01 | MHC.CM.PN ---
PT recommends STR. Preferences obtained and referrals have been sent. DP STR via BLS.
[2024-11-17 16:00] VITALS: BP 119/81; PULSE 92; RESP 18; TEMP 36.6; O2SAT 93
[2024-11-17 19:51] VITALS: BP 142/78; PULSE 96; RESP 18; TEMP 36.5
[2024-11-18] MEDS: Heparin Sodium,Porcine 5,000 UNIT/ML VIAL 5000 UNIT SUBCUT ×3 (00:10→16:20)
[2024-11-18 03:32] VITALS: BP 130/71; PULSE 98; RESP 18; TEMP 36.6; O2SAT 94
[2024-11-18 07:10] VITALS: BP 134/66; PULSE 88; RESP 16; TEMP 36.8; O2SAT 96
[2024-11-18] MEDS: Escitalopram Oxalate 10 MG TABLET PO (07:49)
[2024-11-18] MEDS: Ascorbic Acid 500 MG TABLET 1000 MG PO (07:50)
[2024-11-18] MEDS: Memantine HCl 5 MG TABLET 10 MG PO (07:50)
--- NOTE | 2024-11-18 09:08 | PM.DS ---
DS: Providers Provider Date of Service: 11/18/24 Date of admission: 11/14/24 02:54 Date of discharge: 11/18/24 Primary care physician: Ghazal Hong MD DS: Diagnosis Discharge Diagnosis (1) Leukocytosis: Status: Acute DS: Summary Hospital Course Hospital Course: Chief Complaint: Patient was found 3 miles away from home HPI obtained from medical record and ED provider. Irma Thomas is a 69 years old woman with past medical history significant for Alzheimer's dementia with psychotic disturbance, anxiety and depression was brought to the ED after she was found 3 miles away from home. She was missing for 3 hours. It seems like the patient was trying to get to her own home. According to ED provider the patient's daughter commented that the patient has been coughing a lot lately. Wound evaluation the patient was alert and awake, however, she was unable to provide a meaningful history as she was very confused. ED is unclear to me if this is her baseline. The patient told me that she lives with her who was killed and also said that somebody is trying to poison her. Per chart reviewed the patient takes dementia medications, antipsychotics and antidepressive. Recently treated for UTI. In the emergency department, she was found to have an oxygen saturation of 83% on room air and is currently requiring 2 L/min supplemental oxygen via nasal cannula. Blood workup was remarkable for leukocytosis of 18.0, hemoglobin 12.1 and platelets 368. Venous gas no respiratory acidosis. Lactic acid is normal. There are no electrolyte imbalances. Renal and liver function are unremarkable. BNP, TSH and troponins are normal. Urine drug screen is is negative for benzos, cocaine, marijuana, amphetamine, PCP comorbidities, fentanyl, methadone, oxycodone, and buprenorphine. Viral testing for COVID-19, influenza RSV is negative. Chest CTA is negative for PE or any other acute findings. ECG normal sinus tachycardia, 103 beats per minute and no obvious ischemic changes. ED Tx: NS 2 L of homeless, ceftriaxone 1 g IV, azithromycin 500 mg IV, Tylenol 975 mg p.o., trazodone 100 mg p.o. hospital course: This patient with Alzheimer?s dementia, anxiety, and depression was found 3 miles from home, exhibiting cough, confusion, and delusions. The patient was mildly hypoxic, but CTA showed no infiltrates or pulmonary embolism; hypoxia was attributed to atelectasis and has resolved. Leukocytosis was linked to a recently diagnosed UTI. Treatment began with ciprofloxacin on 11/12 by the primary care provider but was switched to cefuroxime on 11/14 due to the risk of quinolone-associated encephalopathy. Urine culture returned negative. Antibiotic treatment will continue for a total of 7 days, and leukocytosis has resolved. Alzheimer dementia mood disorder memantine, escitalopram, trazodone; d/c olanzapine + benztropine Physical deconditioning: PT recommends short term rehab Time Attestation Discharge Coordination Time (in mins): 40 Quality: Safe Use of Opioids Does Pt have an Active Cancer Diagnosis on the Problem List?: No Quality: Stroke Does the patient have a stroke diagnosis?: No Physical Exam Vital Signs: Vital Signs: Last Vital Signs Temp 98.2 F 11/18/24 07:10 Pulse 88 11/18/24 07:10 Resp 16 11/18/24 07:10 BP 134/66 11/18/24 07:10 Pulse Ox 96 11/18/24 07:10 O2 Del Method Room Air 11/18/24 07:10 O2 Flow Rate 2 11/14/24 15:09 BMI result Body Mass Index 26.6 DS: Data Data Completed and Pending Labs on day of discharge: Preliminary micro results at discharge 11/13/24 23:15 Blood Culture - Preliminary Blood - Venous No growth after 48 hours. 11/13/24 22:50 Blood Culture - Preliminary Blood - Venous No growth after 48 hours. Discharge Plan Discharge Anticipated Discharge Date/Time: 11/18/24 16:54 Patient Disposition: Xfer SNF Discharge Diagnosis: hypoxia, confusion, Referrals: [facility] [Other] - 1 Week Ghazal Hong MD [Primary Care Provider] - 1 Week Discharge Medications: Continued memantine 28 mg capsule,sprinkle,ER 24hr 28 mg PO DAILY Qty: 30 3RF escitalopram oxalate 10 mg tablet 10 mg PO DAILY (DME) cane Device See Rx Instructions .Route Qty: 1 0RF Rx Instructions: As directed, 999 days trazodone 50 mg tablet 50 - 100 mg PO BEDTIME PRN (Reason: Insomnia) ascorbic acid (vitamin C) 1,000 mg tablet 1 g PO DAILY 90 Days Qty: 90 1RF methenamine hippurate 1 gram tablet 1 g PO DAILY 90 Days Qty: 90 1RF Discontinued ciprofloxacin HCl 500 mg tablet 500 mg PO BID Discharge Orders: Discharge Order (Routine); Ordered 11/18/24 Ordered By: Jamil Connelly Diet: Advance to usual diet Activity on Discharge: As tolerated Stand Alone Forms: Patient Portal Discharge page Print Language: Turkmen Care Plan Goals: recovery from hypoxia and uti Health Concerns: hypoxia--resolved uti, treated dementia Plan of Treatment: to short term rehab Assessment: see above
--- NOTE | 2024-11-18 09:20 | P.PNIM_ITS ---
Subjective Subjective Date of Service: 11/18/24 Interval History: No new issues, reported, awaiting placement Physical Exam 2 Vital Signs: Vital Signs: Last Vital Signs Temp 98.2 F 11/18/24 07:10 Pulse 88 11/18/24 07:10 Resp 16 11/18/24 07:10 BP 134/66 11/18/24 07:10 Pulse Ox 96 11/18/24 07:10 O2 Del Method Room Air 11/18/24 07:10 O2 Flow Rate 2 11/14/24 15:09 BMI result Body Mass Index 26.6 Constitutional - Awake and Alert, No apparent distress Cardiovascular - S1S2, RRR, No edema Respiratory - Normal lung expansion, Normal respiratory effort, No respiratory distress, CTA bilaterally Extremities - no calf tenderness bilaterally, no swelling Skin - Warm/Dry Neurological - Alert & oriented x3 Psychological - Appropriate affect Objective Data Active Medications Acetaminophen (Acetaminophen 325 Mg Tablet) 975 mg PO Q6H PRN PRN Reason: Pain, Mild 1-3,fever,headache Last Admin: 11/16/24 08:28 Dose: 975 mg Documented By: LAUREL Ascorbic Acid (Ascorbic Acid 500 Mg Tablet) 1,000 mg PO DAILY [facility] Last Admin: 11/18/24 07:50 Dose: 1,000 mg Documented By: YUKO Cefuroxime Axetil (Cefuroxime Axetil 250 Mg Tablet) 250 mg PO Q12H [facility] Last Admin: 11/17/24 23:03 Dose: 250 mg Documented By: ODRISLandon Escitalopram Oxalate (Escitalopram Oxalate 10 Mg Tablet) 10 mg PO DAILY [facility] Last Admin: 11/18/24 07:49 Dose: 10 mg Documented By: YUKO Guaifenesin (Guaifenesin 200 Mg/10 Ml 10 Ml Liquid) 10 ml PO Q6H PRN PRN Reason: Cough Heparin Sodium (Porcine) (Heparin Sodium,Porcine 5,000 Unit/Ml Vial) 5,000 unit SUBCUT Q8H [facility] Last Admin: 11/18/24 07:50 Dose: 5,000 unit Documented By: YUKO Memantine (Memantine Hcl 5 Mg Tablet) 10 mg PO BID [facility] Last Admin: 11/18/24 07:50 Dose: 10 mg Documented By: YUKO Sodium Chloride (0.9 % Sodium Chloride Flush 3 Ml Syringe) 3 ml IVFLUSH QSHIFT [facility] Last Admin: 11/18/24 07:51 Dose: Not Given Documented By: YUKO Non-Admin Reason: No Access Trazodone HCl (Trazodone Hcl 50 Mg Tablet) 50 - 100 mg PO BEDTIME PRN PRN Reason: Insomnia Last Admin: 11/15/24 20:22 Dose: 50 mg Documented By: JORDANAASY Labs 11/15/24 05:36 11/16/24 06:42 Assessment and Plan (1) Hypoxia: Status: Acute (2) Recurrent UTI: Status: Acute (3) Alzheimer's dementia: Status: Acute Plan This patient with Alzheimer?s dementia, anxiety, and depression was found 3 miles from home, exhibiting cough, confusion, and delusions. The patient was mildly hypoxic, but CTA showed no infiltrates or pulmonary embolism; hypoxia was attributed to atelectasis and has resolved. Leukocytosis was linked to a recently diagnosed UTI. Treatment began with ciprofloxacin on 11/12 by the primary care provider but was switched to cefuroxime on 11/14 due to the risk of quinolone-associated encephalopathy. Urine culture returned negative. Antibiotic treatment will continue for a total of 7 days, and leukocytosis has resolved. Alzheimer dementia mood disorder memantine, escitalopram, trazodone; olanzapine + benztropine stopped Physical deconditioning: PT recommends short term rehab Will dc today if rehab bed available Quality Stroke Does the patient have a stroke diagnosis?: No VTE Prior VTE?: No VTE Risk Level:: Medical - moderate - high VTE Device Contraindication: Treatment Not Indicated VTE Drug Contraindication: N/A - Med Ordered
[2024-11-18] MEDS: cefuroxime axetiL 250 MG TABLET PO (09:54)
--- NOTE | 2024-11-18 12:06 | PC.NURSE ---
Patient bladder scanned per family request for 351 ml,assisted to commode,patient voided 200 ml ,denies discomfort,will monitor
[2024-11-18 15:57] VITALS: BP 137/86; PULSE 90; RESP 16; TEMP 37; O2SAT 94
[2024-11-18] MEDS: Acetaminophen 325 MG TABLET 975 MG PO (16:21)
== END 2024-11-18 18:30 | disposition skilled nursing facility (03) | DRG 206 ==
LOC: HO.ED 11-14 02:44 → HO.EDOVER 11-14 03:03 → HO.S3 11-14 07:28
PROVIDERS: Family Medicine; Admitting Provider Internal Medicine; Emergency Provider Emergency Medicine; PCP Internal Medicine; Visit Provider Internal Medicine
DX: J98.11 Atelectasis (principal); F02.82 Dementia in other diseases classified elsewhere, unspecified severity, with psychotic disturbance; F02.818 Dementia in other diseases classified elsewhere, unspecified severity, with other behavioral disturbance; N39.0 Urinary tract infection, site not specified; G30.9 Alzheimer's disease, unspecified; R09.02 Hypoxemia; F32.A Depression, unspecified; F41.9 Anxiety disorder, unspecified; Z20.822 Contact with and (suspected) exposure to COVID-19; Z91.83 Wandering in diseases classified elsewhere; Z79.899 Other long term (current) drug therapy
CPT/HCPCS: 0241U; 36415; 71045; 71275; 73521; 80048; 80053; 80307; 81001; 82550; 82607; 82803; 83605; 83735; 83880; 84145; 84443; 84484; 85025; 85027; 86140; 87040; 87086; 87633; 93005; 97116; 97162; 99212; 99285; J0456; J0696; J1644; Q9967

== ENCOUNTER → 2024-11-13 22:54 | Outpatient (BNV) | payer MEDICARE, SELFPAY | PROVIDERS: Admitting Provider Internal Medicine; Emergency Provider Emergency Medicine; PCP Internal Medicine; Visit Provider Internal Medicine Cardiovascular Disease | DX: R00.0 Tachycardia, unspecified (principal) | CPT/HCPCS: 93010 ==

== ENCOUNTER → 2024-11-13 22:54 | Outpatient (BNV) | payer MEDICARE, SELFPAY | PROVIDERS: Emergency Provider Emergency Medicine; PCP Internal Medicine; Visit Provider Radiology Vascular & Interventional Radiology | DX: R06.02 Shortness of breath (principal); R09.02 Hypoxemia | CPT/HCPCS: 71045 ==

== ENCOUNTER → 2024-11-14 00:15 | Outpatient (BNV) | payer MEDICARE, SELFPAY | PROVIDERS: Emergency Provider Emergency Medicine; PCP Internal Medicine; Visit Provider Radiology Diagnostic Radiology | DX: R09.02 Hypoxemia (principal); R00.0 Tachycardia, unspecified; M25.551 Pain in right hip; M25.552 Pain in left hip | CPT/HCPCS: 71275; 73521 ==

== ENCOUNTER → 2024-11-14 02:54 | Outpatient (BNV) | payer MEDICARE, SELFPAY | PROVIDERS: Admitting Provider Internal Medicine; Emergency Provider Emergency Medicine; PCP Internal Medicine; Visit Provider Internal Medicine | DX: D72.829 Elevated white blood cell count, unspecified (principal) | CPT/HCPCS: 99223; 99231; 99232; 99239; 99499 ==

== ENCOUNTER 2024-12-16 15:38 | Outpatient (REF) | payer MEDICARE, SELFPAY ==
--- NOTE | ~2024-12-16 | US_ITS ---
EXAMINATION: US RETROPERITONEUM HISTORY: N39.0 - Urinary tract infection, site not specified TECHNIQUE: Real-time grayscale ultrasound imaging of the kidneys was performed and images were reviewed. COMPARISON: There are no prior studies available for comparison. FINDINGS: Right kidney: The right kidney measures 8.8 x 3.0 x 4.1 cm. Renal parenchymal echotexture and thickness are normal. There are no masses. There is no hydronephrosis or renal calculi. Left Kidney: The left kidney measures 8.1 x 4.8 x 4.5 cm. Renal parenchymal echotexture and thickness are normal. There are no masses. There is no hydronephrosis or renal calculi. The urinary bladder is unremarkable. Bilateral ureteral jets are identified. Before voiding, the urinary bladder measured 7.4 x 8.9 x 9.3 cm, for an estimated volume of 319 mL. After voiding, the urinary bladder measured 3.1 x 1.6 x 4.3 cm, for an estimated volume of 10.9 mL. US/US retroperitoneal comp IMPRESSION: Unremarkable retroperitoneal ultrasound. Post void bladder residual of 10.9 mL. Electronically signed by: Rob Graham MD 12/17/2024 07:02 AM EDT
--- OUTSIDE RECORDS SUMMARY | 2024-12-16 16:17 | XMS_ITS | Clinical Summary ---
Author Organization [address] Address [address] [place] [phone] Phone Care Team Providers Care Architectural Technologist Name Role Phone Darrin Ramsey MD Primary Care Provider [phone] Allergies No known active allergies Active Problems Problem Noted Date Diagnosed Date No known problems 07/15/2024 Encounters Date Type Department Care Team Description 11/19/2024 Lab Requisition [facility] - Main Lab [address] [address] Darrin Ramsey MD Unspecified dementia, unspecified severity, without behavioral disturbance, psychotic disturbance, mood disturbance, and anxiety (CMS/HCC V24, CMS/HCC V28); Depression, unspecified from Last 3 Months Surgical History Surgery Date Site/Laterality Comments CHOLECYSTECTOMY [...] Procedure Name Priority Date/Time Associated Diagnosis Comments BASIC METABOLIC PANEL Routine 11/19/2024 10:52 AM EDT Unspecified dementia, unspecified severity, without behavioral disturbance, psychotic disturbance, mood disturbance, and anxiety (CMS/HCC V24, CMS/[facility] V28) Depression, unspecified COMPLETE BLOOD COUNT Routine 11/19/2024 10:52 AM EDT Unspecified dementia, unspecified severity, without behavioral disturbance, psychotic disturbance, mood disturbance, and anxiety (CMS/HCC V24, CMS/HCC V28) Depression, unspecified HEPATITIS C SCREENING Routine 03/20/2014 from Last 3 Months or Most Recently Relevant to Health Maintenance Results * (ABNORMAL) Complete blood count (11/19/2024 10:52 AM EDT) WBC 8.7 4.8 - 10.8 K/[facility] LAB HEMETOLOGY METHOD 11/19/2024 1:19 PM EDT [facility] RBC 4.80 3.80 - 4.80 M/mcL LAB HEMETOLOGY METHOD 11/19/2024 1:19 PM [facility] Hemoglobin 13.8 11.5 - 16.0 g/dL LAB HEMETOLOGY METHOD 11/19/2024 1:19 PM [facility] Hematocrit 43.7 35.0 - 47.0 % LAB HEMETOLOGY METHOD 11/19/2024 1:19 PM [facility] MCV 91.4 79.0 - 98.0 FL LAB HEMETOLOGY METHOD 11/19/2024 1:19 PM [facility] MCH 28.9 27.0 - 32.0 pcg LAB HEMETOLOGY METHOD 11/19/2024 1:19 PM [facility] MCHC 31.6(L) 32.0 - 37.0 g/dL LAB HEMETOLOGY METHOD 11/19/2024 1:19 PM [facility] RDW 13.0 11.0 - 15.0 % LAB HEMETOLOGY METHOD 11/19/2024 1:19 PM [facility] Platelets 470(H) 130 - 400 K/mcL LAB HEMETOLOGY METHOD 11/19/2024 1:19 PM [facility] MPV 9.2 7.0 - 11.0 FL LAB HEMETOLOGY METHOD 11/19/2024 1:19 PM [facility] NRBC 0.0 <1.0 % LAB HEMETOLOGY METHOD 11/19/2024 1:19 PM [facility] NRBC Absolute 0.00 <0.10 K/mcL LAB HEMETOLOGY METHOD 11/19/2024 1:19 PM [facility] Blood Venous blood specimen / Unknown Venipuncture / Unknown 11/19/2024 10:52 AM EDT 11/19/2024 12:59 PM EDT us Darrin Ramsey MD LAB BLOOD ORDERABLES Final R esult [facility] [address] [place] [address], [place] [phone] * (ABNORMAL) Basic metabolic panel (11/19/2024 10:52 AM EDT) Sodium 137 133 - 145 mmol/L LAB CHEMISTRY METHOD 11/19/2024 1:36 PM EDT [facility] Potassium 3.8 3.5 - 5.5 mmol/L LAB CHEMISTRY METHOD 11/19/2024 1:36 PM [facility] Chloride 102 96 - 110 mmol/L LAB CHEMISTRY METHOD 11/19/2024 1:36 PM [facility] CO2 28 21 - 32 mmol/L LAB CHEMISTRY METHOD 11/19/2024 1:36 PM [facility] Anion Gap 7 3 - 11 LAB CHEMISTRY METHOD 11/19/2024 1:36 PM [facility] Glucose 109(H) 70 - 100 mg/dL LAB CHEMISTRY METHOD 11/19/2024 1:36 PM [facility] BUN 9 5 - 25 mg/dL LAB CHEMISTRY METHOD 11/19/2024 1:36 PM T [facility] Creatinine 0.83 0.50 - 1.10 mg/dL LAB CHEMISTRY METHOD 11/19/2024 1:36 PM [facility] eGFR 75 >=60 mL/min/1. 73m2 LAB CHEMISTRY METHOD 11/19/2024 1:36 PM [facility] Comment:Calculation based on the Chronic Kidney Disease Epidemiology Collaboration (CKD-EPI) equation refit without adjustment for race. BUN/Creatinine Ratio 10.8 LAB CHEMISTRY METHOD 11/19/2024 1:36 PM T [facility] Calcium 9.0 8.5 - 10.5 mg/dL LAB CHEMISTRY METHOD 11/19/2024 1:36 PM EDT [facility] Blood Venous blood specimen / Unknown Venipuncture / Unknown 11/19/2024 10:52 AM EDT 11/19/2024 12:59 PM EDT Darrin Ramsey MD LAB BLOOD ORDERABLES Final R esult [facility] ([facility]) [facility] [address] [place] [address], [place] [phone] * Hepatitis C Screening (03/20/2014) Pathologist [facility] Hepatitis C Screening Abstracted Historical Provider HEALTH MAINTENANCE Final Result from Last 3 Months or Most Recently Relevant to Health Maintenance Insurance PLAN Care Teams Architectural Technologist Relationship Specialty Start Date End Date Darrin Ramsey MD [address] [place] [address] PCP - General Family Medicine 11/19/24
== END 2024-12-16 15:39 | disposition home or self-care (01) ==
LOC: HO.US 15:38
PROVIDERS: Visit Provider Nurse Practitioner Family
DX: N39.0 Urinary tract infection, site not specified (principal)
CPT/HCPCS: 76770

== ENCOUNTER → 2024-12-16 15:41 | Outpatient (BNV) | payer MEDICARE, SELFPAY | PROVIDERS: Visit Provider Radiology Diagnostic Radiology | DX: N39.0 Urinary tract infection, site not specified (principal) | CPT/HCPCS: 76770 ==

== ENCOUNTER 2025-01-06 10:53 | Outpatient (REF) | payer MEDICARE, SELFPAY ==
[2025-01-06 11:47] LABS: Appearance Urine Clear; Glucose Urine UA Negative (Negative); PH 7.0 (5.0-9.0); Specific Gravity - Urine 1.010 (1.005-1.025); UMIC TRIGGER UACC YES
[2025-01-06 11:59] LABS: UACC Culture Trigger YES
--- OUTSIDE RECORDS SUMMARY | 2025-01-06 12:08 | XMS_ITS ---
Author Organization [address] Address [address] [place] [phone] Phone Care Team Providers Care Rn Maternal Child Name Role Phone Ghazal Hong MD Primary Care Provider [phone] Program [facility] the [facility] Status:Intake (Enrolling) Start date:12/17/2024 Enrollment reason:Re-Engaged Lost Lead Sales Initiative Related social drivers of health:Housing Instability, TH Health Literacy, Financial Risk, Transportation, Social Isolation, Food Risk Overview This episode will track PACE documentation. Case Team Name Relationship Phone Rosaura Morales Ticket Printer(Responsibl e Staff) [phone] Gauri Dorado Client Services Vice President [phone] Continued Care and Services Coordination
--- OUTSIDE RECORDS SUMMARY | 2025-01-27 20:00 | XMS_ITS | Clinical Summary ---
Author Organization Unknown Care Team Providers Care Food Safety Specialist Name Role Phone DIANE OTHER, JOHN Unavailable Unavailab malick PETERS RN, NOHEMY Unavailable Unavailab malick HOPE PT, MARLON Unavailable Unavailable MARTINEZ CERTIFIED PEER SPECIALIST, CHI Unavailable Unavailable READING OT, FARHAT Unavailable Unavailable Payers Payer Name Policy Type Policy Number Effective Date Expira tion Date [id number] 01 Problems Condition Name Condition Details Condition Category Status Onset Date Resolution Date Last Treatment Date Treating Clinician Comments ALZHEIMER'S DISEASE, UNSPECIFIED Active 11-30 00:00: 00 DEM IN OTHER DIS CLASSD ELSWHR, UNSP SEV, WITH MOOD DISTRB Active 11-27 00:00: 00 DEM IN OTHER DIS CLASSD ELSWHR, UNSP SEVERITY, WITH ANXIETY Active 11-28 00:00: 00 INSOMNIA, UNSPECIFIED Active 06-18 00:00: 00 PERSONAL HISTORY OF URINARY (TRACT) INFECTIONS Active 06-18 00:00: 00 Allergies, Adverse Reactions, Alerts Allergy Name Allergy Type Status Severity Reaction(s) Onset Date Inactive Date Treating Clinician Comments .CODEINE. Propensity to adverse reactions Active 2024-11 19:23:3 8 Medications Ordered Medication Name Filled Medication Name Start Date Stop Date Current Medication? Ordering Clinician Indication Dosage Frequency Signature (SIG) Comments Components escitalopra m 10 mg tablet 08 00:00: 00 Yes [id number] ANTIDEPRESS ANT 10 mg DAILY 10 mg DAILY (route: oral) Med Classific ation: Central Nervous System Agents memantine 28 mg capsule sprinkle,ex tended release 24hr 11-17 00:00: 00 Yes [id number] MEMORY 28 mg DAILY 28 mg DAILY (route: oral) Med Classific ation: Cognitive Disorder Therapy ciprofloxac in 500 mg tablet 11-12 00:00: 00 11-30 00:00 :00 No [id number] Per instruc tions EVERY 12 HOURS Per instructio ns EVERY 12 HOURS (route: oral) Med Classific ation: Anti-Infe ctive Agents sulfamethox azole 800 mg-trimetho prim 160 mg tablet 11-05 00:00: 00 11-30 00:00 :00 No [id number] Per instruc tions EVERY 12 HOURS Per instructio ns EVERY 12 HOURS (route: oral) Med Classific ation: Anti-Infe ctive Agents trazodone 50 mg tablet 11-30 00:00: 00 Yes [id number] INSOMNIA 50 mg BEDTIME 50 mg BEDTIME (route: oral) Med Classific ation: Central Nervous System Agents Tylenol 325 mg tablet 11-30 00:00: 00 Yes [id number] PAIN RELEIF 650 mg EVERY 6 HOURS 650 mg EVERY 6 HOURS (route: oral) Med Classific ation: Analgesic , Anti-infl ammatory or Antipyret ic Vitamin C 1,000 mg tablet 11-30 00:00: 00 Yes [id number] SUPPLEMENT 1000 mg DAILY 1000 mg DAILY (route: oral) Med Classific ation: Electroly te Balance-N utritiona l Products Immunizations Ordered Immunization Name Filled Immunization Name Date Status Comments Refusal Reason INFLUENZA, TIV (INACTIVATED) 2024-11-26 00:00:00 BOOSTER -COVID-19 VACCINE, COVID-19 VACCINE 2021-11-10 00:00:00 DOSE #2, COVID-19 VACCINE 2020-10-07 00:00:00 DOSE #1, COVID-19 VACCINE 2020-09-09 00:00:00 Vital Signs Vital Name Observation Time Observation Value Commen ts Temperature 2024-12-26 09:51:00.000 97.4 [degF] Temperature 2024-12-24 11:29:00.000 98 [degF] Temperature 2024-12-22 16:01:00.000 96.9 [degF] Temperature 2024-12-22 12:05:00.000 97.5 [degF] Temperature 2024-12-18 12:54:00.000 97.3 [degF] Temperature 2024-12-18 12:06:00.000 97.8 [degF] Temperature 2024-12-16 09:48:00.000 97.3 [degF] Temperature 2024-12-11 08:49:00.000 97.9 [degF] Temperature 2024-12-10 09:18:00.000 97.4 [degF] Temperature 2024-12-03 13:26:00.000 97.8 [degF] Temperature 2024-12-02 12:22:00.000 97.5 [degF] Temperature 2024-11-30 19:19:00.000 97.7 [degF] BMI (%) 2024-11-30 18:32:00.000 24 kg/m2 Height 2024-11-30 18:31:45.000 60 [in_us] Pulse 2024-12-26 09:51:00.000 88 /min Pulse 2024-12-24 11:29:00.000 84 /min Pulse 2024-12-22 16:01:00.000 100 /min Pulse 2024-12-22 12:05:00.000 98 /min Pulse 2024-12-18 12:54:00.000 100 /min Pulse 2024-12-18 12:06:00.000 102 /min Pulse 2024-12-16 09:48:00.000 93 /min Pulse 2024-12-11 08:49:00.000 106 /min Pulse 2024-12-10 09:18:00.000 104 /min Pulse 2024-12-03 13:26:00.000 88 /min Pulse 2024-12-02 12:22:00.000 96 /min Pulse 2024-11-30 19:19:00.000 88 /min O2 Saturation (%) 2024-12-26 09:51:00.000 97 % O2 Saturation (%) 2024-12-22 16:01:00.000 96 % O2 Saturation (%) 2024-12-22 12:05:00.000 95 % O2 Saturation (%) 2024-12-18 12:22:00.000 96 % O2 Saturation (%) 2024-12-18 12:06:00.000 96 % O2 Saturation (%) 2024-12-16 09:48:00.000 96 % O2 Saturation (%) 2024-12-11 08:49:00.000 93 % O2 Saturation (%) 2024-12-10 09:37:00.000 96 % O2 Saturation (%) 2024-12-10 09:18:00.000 95 % O2 Saturation (%) 2024-12-02 12:22:00.000 96 % Respirations 2024-12-26 09:51:00.000 18 /min Respirations 2024-12-24 11:29:00.000 18 /min Respirations 2024-12-22 16:01:00.000 18 /min Respirations 2024-12-22 12:05:00.000 18 /min Respirations 2024-12-18 12:54:00.000 18 /min Respirations 2024-12-18 12:06:00.000 18 /min Respirations 2024-12-16 09:48:00.000 18 /min Respirations 2024-12-11 08:49:00.000 18 /min Respirations 2024-12-10 09:18:00.000 18 /min Respirations 2024-12-03 13:26:00.000 18 /min Respirations 2024-12-02 12:22:00.000 18 /min Respirations 2024-11-30 19:19:00.000 18 /min Weight (lbs) 2024-11-30 18:32:00.000 128 [lb_av] Systolic Blood Pressure 2024-12-26 09:51:00.000 120 mm [Hg] Systolic Blood Pressure 2024-12-24 11:29:00.000 112 mm [Hg] Systolic Blood Pressure 2024-12-22 16:01:00.000 142 mm [Hg] Systolic Blood Pressure 2024-12-22 12:05:00.000 118 mm [Hg] Systolic Blood Pressure 2024-12-18 12:54:00.000 116 mm [Hg] Systolic Blood Pressure 2024-12-18 12:06:00.000 130 mm [Hg] Systolic Blood Pressure 2024-12-16 09:48:00.000 118 mm [Hg] Systolic Blood Pressure 2024-12-11 08:49:00.000 110 mm [Hg] Systolic Blood Pressure 2024-12-10 09:18:00.000 132 mm [Hg] Systolic Blood Pressure 2024-12-03 13:26:00.000 120 mm [Hg] Systolic Blood Pressure 2024-12-02 12:22:00.000 130 mm [Hg] Systolic Blood Pressure 2024-11-30 19:19:00.000 118 mm [Hg] Diastolic Blood Pressure 2024-12-26 09:51:00.000 80 mm [Hg] Diastolic Blood Pressure 2024-12-24 11:29:00.000 70 mm [Hg] Diastolic Blood Pressure 2024-12-22 16:01:00.000 80 mm [Hg] Diastolic Blood Pressure 2024-12-22 12:05:00.000 80 mm [Hg] Diastolic Blood Pressure 2024-12-18 12:54:00.000 72 mm [Hg] Diastolic Blood Pressure 2024-12-18 12:06:00.000 85 mm [Hg] Diastolic Blood Pressure 2024-12-16 09:48:00.000 60 mm [Hg] Diastolic Blood Pressure 2024-12-11 08:49:00.000 60 mm [Hg] Diastolic Blood Pressure 2024-12-10 09:18:00.000 75 mm [Hg] Diastolic Blood Pressure 2024-12-03 13:26:00.000 70 mm [Hg] Diastolic Blood Pressure 2024-12-02 12:22:00.000 82 mm [Hg] Diastolic Blood Pressure 2024-11-30 19:19:00.000 70 mm [Hg] Plan of Treatment Planned Activity Planned Date Details Comments Future Scheduled Test RESPIRATOR Y SYSTEM MANAGEMENT; RN TO ASSESS AND TEACH, OIL FIELD EQUIPMENT MECHANIC SUPERVISOR/YOUTH TEACHER TO OBSERVE AND TEACH RELATED TO ALTERED RESPIRATORY STATUS TO MINIMIZE COMPLICATIONS AND REDUCE HOSPITALIZATION. [code = RESPIRATORY SYSTEM MANAGEMENT; RN TO ASSESS AND TEACH, OIL FIELD EQUIPMENT MECHANIC SUPERVISOR/YOUTH TEACHER TO OBSERVE AND TEACH RELATED TO ALTERED RESPIRATORY STATUS TO MINIMIZE COMPLICATIONS AND REDUCE HOSPITALIZATION.] Future Scheduled Test FALL REDUC TION MANAGEMENT; RN TO ASSESS AND OBSERVE, OIL FIELD EQUIPMENT MECHANIC SUPERVISOR/YOUTH TEACHER TO OBSERVE FALL RISK FACTORS AND EDUCATE PATIENT/CAREGIVER ON STRATEGIES TO MINIMIZE THE RISK OF FALLING. [code = FALL REDUCTION MANAGEMENT; RN TO ASSESS AND OBSERVE, OIL FIELD EQUIPMENT MECHANIC SUPERVISOR/YOUTH TEACHER TO OBSERVE FALL RISK FACTORS AND EDUCATE PATIENT/CAREGIVER ON STRATEGIES TO MINIMIZE THE RISK OF FALLING.] Future Scheduled Test GENITOURIN ANJANA MANAGEMENT; RN TO ASSESS AND TEACH, OIL FIELD EQUIPMENT MECHANIC SUPERVISOR/YOUTH TEACHER TO OBSERVE AND TEACH RELATED TO ALTERED GENITOURINARY STATUS TO MINIMIZE COMPLICATIONS AND REDUCE HOSPITALIZATION. [code = GENITOURINARY MANAGEMENT; RN TO ASSESS AND TEACH, OIL FIELD EQUIPMENT MECHANIC SUPERVISOR/YOUTH TEACHER TO OBSERVE AND TEACH RELATED TO ALTERED GENITOURINARY STATUS TO MINIMIZE COMPLICATIONS AND REDUCE HOSPITALIZATION. ] Future Scheduled Test URINARY TR ACT INFECTION MANAGEMENT; RN/YOUTH TEACHER/OIL FIELD EQUIPMENT MECHANIC SUPERVISOR TO PROVIDE SKILLED TEACHING AND SELF- CARE MANAGEMENT RELATED TO UTI TO MINIMIZE COMPLICATIONS AND REDUCE THE RISK OF HOSPITALIZATION. [code = URINARY TRACT INFECTION MANAGEMENT; RN/YOUTH TEACHER/OIL FIELD EQUIPMENT MECHANIC SUPERVISOR TO PROVIDE SKILLED TEACHING AND SELF- CARE MANAGEMENT RELATED TO UTI TO MINIMIZE COMPLICATIONS AND REDUCE THE RISK OF HOSPITALIZATION.] Future Scheduled Test RN TO OBSE RVE, ASSESS, EVALUATE, AND DEVELOP AN INDIVIDUALIZED PLAN OF CARE. AGENCY MAY ACCEPT ORDERS FROM CONSULTING PHYSICIANS RN TO OBSERVE AND ASSESS, OIL FIELD EQUIPMENT MECHANIC SUPERVISOR/YOUTH TEACHER TO OBSERVE FOR RISK FOR FALLS AND INSTRUCT IN FALL PREVENTION, HOME SAFETY, MEDICATION MANAGEMENT, INFECTION PREVENTION, AND NUTRITION MANAGEMENT. RN/OIL FIELD EQUIPMENT MECHANIC SUPERVISOR/YOUTH TEACHER NURSE MAY PERFORM O2 SATURATION LEVEL ON ADMISSION AND PRN FOR RN TO ASSESS/OIL FIELD EQUIPMENT MECHANIC SUPERVISOR TO OBSERVE PATIENT, WITH NOTIFICATION TO THE PHYSICIAN IF SATURATION IS 90% IN THE ABSENCE OF MORE SPECIFIC PARAMETERS FROM THE PHYSICIAN. AGENCY MAY PERFORM A RESUMPTION OF CARE VISIT FOLLOWING ANY HOSPITAL ADMISSION. RN/OIL FIELD EQUIPMENT MECHANIC SUPERVISOR/YOUTH TEACHER TO MONITOR CO-MORBID CONDITIONS LISTED ON THE PLAN OF CARE AND ANY NEW CONDITIONS THAT PRESENT THEMSELVES DURING THIS EPISODE TO IDENTIFY CHANGES AND INTERVENE TO MINIMIZE COMPLICATIONS. [code = RN TO OBSERVE, ASSESS, EVALUATE, AND DEVELOP AN INDIVIDUALIZED PLAN OF CARE. AGENCY MAY ACCEPT ORDERS FROM CONSULTING PHYSICIANS RN TO OBSERVE AND ASSESS, OIL FIELD EQUIPMENT MECHANIC SUPERVISOR/YOUTH TEACHER TO OBSERVE FOR RISK FOR FALLS AND INSTRUCT IN FALL PREVENTION, HOME SAFETY, MEDICATION MANAGEMENT, INFECTION PREVENTION, AND NUTRITION MANAGEMENT. RN/OIL FIELD EQUIPMENT MECHANIC SUPERVISOR/YOUTH TEACHER NURSE MAY PERFORM O2 SATURATION LEVEL ON ADMISSION AND PRN FOR RN TO ASSESS/OIL FIELD EQUIPMENT MECHANIC SUPERVISOR TO OBSERVE PATIENT, WITH NOTIFICATION TO THE PHYSICIAN IF SATURATION IS 90% IN THE ABSENCE OF MORE SPECIFIC PARAMETERS FROM THE PHYSICIAN. AGENCY MAY PERFORM A RESUMPTION OF CARE VISIT FOLLOWING ANY HOSPITAL ADMISSION. RN/OIL FIELD EQUIPMENT MECHANIC SUPERVISOR/YOUTH TEACHER TO MONITOR CO-MORBID CONDITIONS LISTED ON THE PLAN OF CARE AND ANY NEW CONDITIONS THAT PRESENT THEMSELVES DURING THIS EPISODE TO IDENTIFY CHANGES AND INTERVENE TO MINIMIZE COMPLICATIONS.] Future Scheduled Test DEMENTIA M ANAGEMENT WITH BEHAVIORAL DISTURBANCES; RN TO ASSESS AND TEACH, YOUTH TEACHER/OIL FIELD EQUIPMENT MECHANIC SUPERVISOR TO OBSERVE AND TEACH AND TO PROVIDE EDUCATION ON DEMENTIA WITH BEHAVIORAL DISTURBANCES. [code = DEMENTIA MANAGEMENT WITH BEHAVIORAL DISTURBANCES; RN TO ASSESS AND TEACH, YOUTH TEACHER/OIL FIELD EQUIPMENT MECHANIC SUPERVISOR TO OBSERVE AND TEACH AND TO PROVIDE EDUCATION ON DEMENTIA WITH BEHAVIORAL DISTURBANCES.] Future Scheduled Test PAIN MANAG EMENT; RN TO ASSESS AND TEACH, YOUTH TEACHER/OIL FIELD EQUIPMENT MECHANIC SUPERVISOR TO OBSERVE AND TEACH AND PROVIDE EDUCATION ON PAIN MANAGEMENT TECHNIQUES. [code = PAIN MANAGEMENT; RN TO ASSESS AND TEACH, YOUTH TEACHER/OIL FIELD EQUIPMENT MECHANIC SUPERVISOR TO OBSERVE AND TEACH AND PROVIDE EDUCATION ON PAIN MANAGEMENT TECHNIQUES.] Future Scheduled Test MEDICATION MANAGEMENT; RN/OIL FIELD EQUIPMENT MECHANIC SUPERVISOR/YOUTH TEACHER TO REVIEW MEDICATIONS FOR INTERACTIONS, EFFECTIVENESS OF DRUG THERAPY, AND SIGNS/SYMPTOMS OF ADVERSE REACTIONS. MAY INSTRUCT AND REINFORCE MEDICATION TEACHING RELATED TO THE USE OF MEDICATIONS, DOSAGE, FREQUENCY, PURPOSE, SIDE EFFECTS, AND TO REPORT COMPLICATIONS. [code = MEDICATION MANAGEMENT; RN/OIL FIELD EQUIPMENT MECHANIC SUPERVISOR/YOUTH TEACHER TO REVIEW MEDICATIONS FOR INTERACTIONS, EFFECTIVENESS OF DRUG THERAPY, AND SIGNS/SYMPTOMS OF ADVERSE REACTIONS. MAY INSTRUCT AND REINFORCE MEDICATION TEACHING RELATED TO THE USE OF MEDICATIONS, DOSAGE, FREQUENCY, PURPOSE, SIDE EFFECTS, AND TO REPORT COMPLICATIONS.] Future Scheduled Test SPEECH THE RAPIST TO EVALUATE FOR SWALLOWING DIFFICULTIES. AGENCY MAY PERFORM A RESUMPTION OF CARE VISIT FOLLOWING ANY HOSPITAL ADMISSION. OT TO EVALUATE, OBSERVE / ASSESS, AND MONITOR, EMIGDIO TO OBSERVE AND MONITOR, PROVIDE SKILLED THERAPEUTIC INTERVENTION, ACTIVITY, EDUCATION, AND TRAINING TO ADDRESS; ACTIVITIES OF DAILY LIVING (OT/BOILER CONTROL TECHNICIAN) FLOOR RECOVERY (OT/BOILER CONTROL TECHNICIAN) POSTURAL CONTROL/BALANCE (OT/BOILER CONTROL TECHNICIAN) THERAPEUTIC EXERCISE (OT/EMIGDIO) OT/BOILER CONTROL TECHNICIAN TO MONITOR AND EDUCATE ON OXYGEN SATURATION DURING ADLS/IADLS, NOTIFY PHYSICIAN AND/OR THE RN CLINICAL BROWN SOURER FOR PHYSICIAN NOTIFICATION AND IF O2 SATS BELOW 90% AFTER 10 MIN OF REST. OT/BOILER CONTROL TECHNICIAN MAY EDUCATE ON PAIN MANAGEMENT CLINICALLY INDICATED. OT / EMIGDIO TO IDENTIFY FALL RISK FACTORS; EDUCATE THE PATIENT/CAREGIVER ON WAYS TO REDUCE FALL RISK FACTORS AND ESTABLISH HOME EXERCISE PROGRAM TO MINIMIZE FALL RISK. MAY TEACH THE PATIENT FLOOR RECOVERY WHEN CLINICALLY APPROPRIATE. OT TO ASSESS / EMIGDIO TO MONITOR CARDIO/RESPIRATORY SYSTEM; AND NOTIFY THE PHYSICIAN AND/OR THE RN CLINICAL BROWN SOURER FOR PHYSICIAN NOTIFICATION FOR EARLY SIGNS AND SYMPTOMS OF EXACERBATION OR DETERORATION [code = SPEECH THERAPIST TO EVALUATE FOR SWALLOWING DIFFICULTIES. AGENCY MAY PERFORM A RESUMPTION OF CARE VISIT FOLLOWING ANY HOSPITAL ADMISSION. OT TO EVALUATE, OBSERVE / ASSESS, AND MONITOR, BOILER CONTROL TECHNICIAN TO OBSERVE AND MONITOR, PROVIDE SKILLED THERAPEUTIC INTERVENTION, ACTIVITY, EDUCATION, AND TRAINING TO ADDRESS; ACTIVITIES OF DAILY LIVING (OT/EMIGDIO) FLOOR RECOVERY (OT/EMIGDIO) POSTURAL CONTROL/BALANCE (OT/BOILER CONTROL TECHNICIAN) THERAPEUTIC EXERCISE (OT/BOILER CONTROL TECHNICIAN) OT/EMIGDIO TO MONITOR AND EDUCATE ON OXYGEN SATURATION DURING ADLS/IADLS, NOTIFY PHYSICIAN AND/OR THE RN CLINICAL BROWN SOURER FOR PHYSICIAN NOTIFICATION AND IF O2 SATS BELOW 90% AFTER 10 MIN OF REST. OT/BOILER CONTROL TECHNICIAN MAY EDUCATE ON PAIN MANAGEMENT CLINICALLY INDICATED. OT / EMIGDIO TO IDENTIFY FALL RISK FACTORS; EDUCATE THE PATIENT/CAREGIVER ON WAYS TO REDUCE FALL RISK FACTORS AND ESTABLISH HOME EXERCISE PROGRAM TO MINIMIZE FALL RISK. MAY TEACH THE PATIENT FLOOR RECOVERY WHEN CLINICALLY APPROPRIATE. OT TO ASSESS / EMIGDIO TO MONITOR CARDIO/RESPIRATORY SYSTEM; AND NOTIFY THE PHYSICIAN AND/OR THE RN CLINICAL BROWN SOURER FOR PHYSICIAN NOTIFICATION FOR EARLY SIGNS AND SYMPTOMS OF EXACERBATION OR DETERORATION ] Future Scheduled Test AGENCY MAY PERFORM A RESUMPTION OF CARE VISIT FOLLOWING ANY HOSPITAL ADMISSION. PT TO EVALUATE, OBSERVE / ASSESS, AND MONITOR, CERTIFIED PEER SPECIALIST TO OBSERVE AND MONITOR, PROVIDE SKILLED THERAPEUTIC INTERVENTION, ACTIVITY, EDUCATION, AND TRAINING TO ADDRESS; PT/CERTIFIED PEER SPECIALIST TO PROVIDE GAIT TRAINING FOR IMPROVED MOBILITY AND /OR TO NORMALIZE GAIT PATTERN NEUROMUSCULAR RE-EDUCATION / BALANCE / POSTURAL CONTROL (PT) THERAPEUTIC EXERCISES AND ESTABLISHING A HOME EXERCISE PROGRAM (PT/CERTIFIED PEER SPECIALIST) PT/CERTIFIED PEER SPECIALIST TO PROVIDE STAIR TRAINING SIT TO/FROM STAND TRANSFERS (PT/CERTIFIED PEER SPECIALIST) PT / CERTIFIED PEER SPECIALIST TO MONITOR AND EDUCATE ON OXYGEN SATURATION DURING ADLS/IADLS, NOTIFY PHYSICIAN AND/OR THE RN CLINICAL BROWN SOURER FOR PHYSICIAN NOTIFICATION AND IF O2 SATS BELOW PHYSICIAN ORDERED PARAMETERS AFTER 10 MIN OF REST PT/CERTIFIED PEER SPECIALIST TO IDENTIFY FALL RISK FACTORS; EDUCATE THE PATIENT/CAREGIVER ON WAYS TO REDUCE FALL RISK FACTORS AND ESTABLISH HOME EXERCISE PROGRAM TO MINIMIZE FALL RISK. MAY TEACH THE PATIENT FLOOR RECOVERY WHEN CLINICALLY APPROPRIATE PT / CERTIFIED PEER SPECIALIST MAY EDUCATE ON PAIN MANAGEMENT CLINICALLY INDICATED, INCLUDING NON-PHARMACOLOGICAL PAIN REDUCTION TECHNIQUES [code = AGENCY MAY PERFORM A RESUMPTION OF CARE VISIT FOLLOWING ANY HOSPITAL ADMISSION. PT TO EVALUATE, OBSERVE / ASSESS, AND MONITOR, CERTIFIED PEER SPECIALIST TO OBSERVE AND MONITOR, PROVIDE SKILLED THERAPEUTIC INTERVENTION, ACTIVITY, EDUCATION, AND TRAINING TO ADDRESS; PT/CERTIFIED PEER SPECIALIST TO PROVIDE GAIT TRAINING FOR IMPROVED MOBILITY AND /OR TO NORMALIZE GAIT PATTERN NEUROMUSCULAR RE-EDUCATION / BALANCE / POSTURAL CONTROL (PT) THERAPEUTIC EXERCISES AND ESTABLISHING A HOME EXERCISE PROGRAM (PT/CERTIFIED PEER SPECIALIST) PT/CERTIFIED PEER SPECIALIST TO PROVIDE STAIR TRAINING SIT TO/FROM STAND TRANSFERS (PT/CERTIFIED PEER SPECIALIST) PT / CERTIFIED PEER SPECIALIST TO MONITOR AND EDUCATE ON OXYGEN SATURATION DURING ADLS/IADLS, NOTIFY PHYSICIAN AND/OR THE RN CLINICAL BROWN SOURER FOR PHYSICIAN NOTIFICATION AND IF O2 SATS BELOW PHYSICIAN ORDERED PARAMETERS AFTER 10 MIN OF REST PT/CERTIFIED PEER SPECIALIST TO IDENTIFY FALL RISK FACTORS; EDUCATE THE PATIENT/CAREGIVER ON WAYS TO REDUCE FALL RISK FACTORS AND ESTABLISH HOME EXERCISE PROGRAM TO MINIMIZE FALL RISK. MAY TEACH THE PATIENT FLOOR RECOVERY WHEN CLINICALLY APPROPRIATE PT / CERTIFIED PEER SPECIALIST MAY EDUCATE ON PAIN MANAGEMENT CLINICALLY INDICATED, INCLUDING NON-PHARMACOLOGICAL PAIN REDUCTION TECHNIQUES ] Goal Patient Goal - T O REMAIN WITH HER DTR. AND FAMILY Goal Provider Goal - PATIENT / CAREGIVER WILL VERBALIZE/DEMONSTRATE UNDERSTANDING OF MEASURES TO MANAGE ALTERED RESPIRATORY STATUS BY END OF EPISODE. Goal Provider Goal - /CAREGIVER WILL VERBALIZE/DEMONSTRATE UNDERSTANDING OF FALL RISK FACTORS AND IMPLEMENT STRATEGIES TO MINIMIZE FALL RISK. /CAREGIVER WILL VERBALIZE/DEMONSTRATE AN ABILITY TO ADHERE TO FALL REDUCTION SELF-MANAGEMENT AND LIFE-STYLE CHANGES BY END OF EPISODE Goal Provider Goal - PATIENT / CAREGIVER WILL VERBALIZE/DEMONSTRATE UNDERSTANDING OF MEASURES TO MANAGE ALTERED GENITOURINARY STATUS BY END OF EPISODE. Goal Provider Goal - PATIENT/CAREGIVER WILL VERBALIZE/DEMONSTRATE UNDERSTANDING OF CARE AND MANAGEMENT OF URINARY TRACT INFECTION BY EOE Goal Provider Goal - A PLAN OF CARE WILL BE ESTABLISHED THAT MEETS THE PATIENTS NEEDS. PATIENT WILL DEMONSTRATE OXYGEN SATURATION WITHIN NORMAL LIMITS OR PATIENTS OPTIMAL LEVEL ESTABLISHED BY THE PHYSICIAN THROUGHOUT CARE. CHANGES TO CO-MORBID CONDITIONS AND ANY NEW CONDITIONS WILL BE IDENTIFIED AND REPORTED TO THE PHYSICIAN. Goal Provider Goal - FAMILY / CAREGIVERS WILL VERBALIZE/DEMONSTRATE DEMENTIA MANAGEMENT TECHNIQUES BY END OF EPISODE. Goal Provider Goal - / CAREGIVER WILL VERBALIZE / DEMONSTRATE UNDERSTANDING OF PAIN CONTROL MEASURES BY EOE Goal Provider Goal - Goal Provider Goal - /CAREGIVER TO VERBALIZE, AND CONSISTENTLY DEMONSTRATE EFFECTIVE, SAFE MANAGEMENT OF MEDICATION INCLUDING KNOWLEDGE OF EFFECTIVENESS, POTENTIAL SIDE EFFECTS AND DRUG REACTIONS AND WHEN TO CONTACT THE APPROPRIATE CARE PROVIDER. /CAREGIVER WILL BE ABLE TO VERBALIZE UNDERSTANDING OF MEDICATION REGIMEN AND ACCURATELY GIVE MEDICATIONS PRESCRIBED WITHOUT ADVERSE EFFECTS BY EOE Goal Provider Goal - OT LTG: PATIENT WILL DEMONSTRATE IMPROVEMENT IN MODIFIED DARBY INDEX SCORE FROM 84/100 TO 88/100 INDICATING DECREASED DEPENDENCY ON CAREGIVER ASSISTANCE WITH ACTIVITIES OF DAILY LIVING WITHIN 6 WEEKS. OT LTG: PATIENT WILL DEMONSTRATE IMPROVED ABILITY TO PERFORM FLOOR RECOVERY TO DECREASE THE RISK OF SKIN BREAKDOWN AND ADVERSE HEALTH OUTCOMES FROM UNABLE TO SBA WITHIN 6 WEEKS. OT LTG. PATIENT WILL DEMONSTRATE IMPROVED BALANCE IN ORDER TO DECREASE RISK OF FALLING EVIDENCE BY AND IMPROVEMENT IN DYNAMIC STANDING BALANCE FROM GOOD - TO NORMAL WITHIN 6 WEEKS OT LTG: PATIENT WILL DEMONSTRATE IMPROVED POSTURAL CONTROL AND DECREASED FALL RISK EVIDENCED BY AN IMPROVEMENT IN FUNCTIONAL REACH SCORE FROM 7 INCH TO 10 IN WITHIN 6 WEEKS IN ORDER TO DECREASE RISK OF FALLING. OT LTG: PATIENT WILL DEMONSTRATE IMPROVED BUE MUSCLE STRENGTH EVIDENCED BY AN IMPROVEMENT IN MMT/FUNCTIONAL STRENGTH FROM 4-/5 TO 5/5 WITHIN 6 WEEKS. OT LTG: PATIENT WILL MAINTAIN OXYGEN SATURATION WITHIN PHYSICIAN ORDERED PARAMETERS THROUGHOUT THE EPISODE OF CARE. OT LTG: PATIENT WILL DEMONSTRATE UNDERSTANDING OF PAIN MANAGEMENT TECHNIQUES NEEDED DURING EPISODE OF CARE. OT LTG: PATIENT/CAREGIVER WILL BE ABLE TO IMPLEMENT RECOMMENDATIONS SPECIFIC TO FALL REDUCTION FOR IMPROVED ADL/IADL COMPLETION AND HOME SAFETY BY END OF EPISODE. OT LTG: PATIENT WILL NOT EXPERIENCE CARDIAC OR RESPIRATORY COMPLICATIONS THROUGHOUT THE EPISODE OF CARE. Goal Provider Goal - PT LTG: PATIENT WILL DEMONSTRATE REDUCED GAIT DEVIATIONS TO REDUCE THE RISK FOR FALLING AND MINIMIZE STRAIN ON KNEES/HIPS AND BACK EVIDENCED BY IMPROVED HEEL STRIKE, ADEQUATE STEP LENGTH AND CONSISTENT FOOT CLEARANCE BILATERALLY WITHOUT AD TO WALK INDEPENDENTLY IN ORDER TO ACCESS ALL AREAS OF THE HOME AND TRANSPORTATION WITHIN 5 WEEKS PT LTG: PATIENT WILL DEMONSTRATE REDUCED FALL RISK EVIDENCED BY FOUR SQUARE STEP TEST (CUT SCORE >13 SECONDS INDICATES INCREASED FALL RISK) IMPROVING FROM NT SECONDS TO 20 SECONDS WITHIN 5 WEEKS PT LTG: PATIENT WILL DEMONSTRATE IMPROVED FUNCTIONAL STRENGTH EVIDENCED BY FIVE TIMES SIT TO STAND TEST (CUT SCORE >12 SECONDS INDICATES AN INCREASED FALL RISK) IMPROVING FROM 16 SECONDS TO 12 SECONDS WITHIN 5 WEEKS PT LTG: PATIENT WILL DEMONSTRATE INCREASED STRENGTH OF BILATERAL LES FROM 3+/5 TO 4/5 WITHIN 5 WEEKS IN ORDER TO IMPROVE SAFETY AND STABILITY WITH GAIT AND STAIRS PT LTG: PATIENT WILL DEMONSTRATE IMPROVED ABILITY TO SAFELY NEGOTIATE STAIRS FROM SBA TO INDEPENDENT WITH RAIL IN ORDER TO SAFELY ENTER AND EXIT HOME WITHIN 5 WEEKS PT STG: PATIENT WILL DEMONSTRATE IMPROVED ABILITY TO PERFORM SIT TO/FROM STAND TRANSFERS TO REDUCE THE RISK OF SKIN BREAKDOWN AND REDUCE FALL RISK FROM SUP TO INDEPENDENT WITHIN 3 WEEKS PT LTG: PATIENT WILL MAINTAIN OXYGEN SATURATION WITHIN PHYSICIAN ORDERED PARAMETERS THROUGHOUT EPISODE OF CARE. PT LTG: PATIENT/CAREGIVER WILL DEMONSTRATE ADHERENCE TO FALL REDUCTION SELF-MANAGEMENT AND REDUCING FALL RISK FACTORS TO MINIMIZE FALL RISK BY END OF EPISODE. PT LTG: CAREGIVER WILL BE INDEPENDENT ASSISTING PATIENT TO COMPLETE HEP WITHIN 4 WEEKS PT GOAL: PATIENT WILL DEMONSTRATE UNDERSTANDING OF PAIN MANAGEMENT TECHNIQUES EVIDENCED BY REDUCED PAIN Encounters Start Date/Time End Date/Time Encounter Type Admission Type Attending [facility] Facility Care Department Encounter ID Discharge Date Discharge Status Discharge Condition Discharge Reason Percent Goals Met 2024-11-30 00:00:00 2025-01-28 00:00:00 Outpatient NEW ADMISSION [facility] [id number]
== END 2025-01-06 10:54 | disposition home or self-care (01) ==
LOC: HO.LAB 10:53
PROVIDERS: PCP Internal Medicine; Visit Provider Nurse Practitioner Family
DX: N39.0 Urinary tract infection, site not specified (principal)
CPT/HCPCS: 81001; 87086

== ENCOUNTER 2025-01-15 11:24 | Emergency (ER) | payer MEDICARE, SELFPAY ==
[2025-01-15] VITALS (7 sets, daily range): BP systolic 105–165; BP diastolic 77–89; PULSE 70–107; RESP 12–20; TEMP 36.3–36.8; O2SAT 95–98; BMI 21.8
--- NOTE | ~2025-01-15 | US_ITS ---
EXAMINATION: US ABDOMEN LIMITED CLINICAL INFORMATION: Epigastric/right upper quadrant pain.. COMPARISON: None available. TECHNIQUE: Real-time ultrasound of the right upper quadrant abdomen using grayscale and color Doppler technique. FINDINGS: Absent gallbladder/status post cholecystectomy. Common bile duct measures 9 mm with a questionable hyperechoic abnormality. Liver measures 11 cm by special procedures technologist. No gross solid or cystic lesion detected. Coarse echotexture. Main portal vein is patent with normal hepatopedal flow direction. Right kidney measures 9 cm. Normal echotexture. Normal renal cortical thickness. No hydronephrosis. No gross solid or cystic lesion. No free fluid/ascites in the pararenal fossa. US/US abdomen limited IMPRESSION: Questionable choledocholithiasis. Electronically signed by: Krishna Aragon MD 01/15/2025 03:44 PM EDT
--- NOTE | 2025-01-15 11:39 | ECG_ITS ---
Test Reason : ams Blood Pressure : */* mmHG Vent. Rate : 84 BPM Atrial Rate : 84 BPM P-R Int : 146 ms QRS Dur : 82 ms QT Int : 358 ms P-R-T Axes : 68 -24 24 degrees QTcB Int : 423 ms Normal sinus rhythm Normal ECG When compared with ECG of 13-Nov-2024 22:54, No significant change was found Referred By: Letitia Gomez Electronically Signed By: CONNIE PANIAGUA MD
[2025-01-15 12:09] LABS: MANUAL DIFF FLAG NO
[2025-01-15 12:11] LABS: Hematocrit 36.9 % (37.0-47.0); Hemoglobin 12.3 g/dl (12.0-16.0); Imm Gran Abs Auto 0.01 X10*3/uL (0.00-0.03); Imm Gran Pct Auto 0.1 % (0.0-0.4); Lymphocytes Absolute Auto 1.8 X10*3/uL (1.2-4.9); Mean Corpuscular HGB Conc 33.3 g/dl (31.0-35.0); Mean Corpuscular Hemoglobin 28.9 pg (27.0-33.0); Mean Corpuscular Volume 86.6 fL (80.0-98.0); NRBC Abs Auto 0.000 X10*3/uL (0.0-0.012); NRBC Pct Auto 0.0 /100WBC (0.0-0.2); Platelet Count 307 X10*3/uL (160-400); Red Blood Count 4.26 X10*6/uL (4.20-5.50); White Blood Count 7.5 X10*3/uL (4.8-10.8)
--- OUTSIDE RECORDS SUMMARY | 2025-01-15 12:25 | XMS_ITS ---
Author Organization [address] Address [address] [place] [phone] Phone Care Team Providers Care Entry Level Financial Analyst Name Role Phone Ghazal Hong MD Primary Care Provider [phone] [facility] Status:Intake (Enrolling) Start date:12/17/2024 Enrollment reason:Re-Engaged Lost Lead Sales Initiative Related social drivers of health:Housing Instability, TH Health Literacy, Financial Risk, Transportation, Social Isolation, Food Risk Overview This episode will track PACE documentation. Case Team Name Relationship Phone Rosaura Morales Electric Mule Operator(Responsibl e Staff) [phone] Gauri Dorado Commercial Director [phone] Continued Care and Services Coordination
[2025-01-15 12:26] LABS: Alanine Aminotransferase 16 U/L (0-31); Albumin Level 3.5 g/dL (3.5-5.0); Alkaline Phosphatase 129 U/L (39-117); Anion Gap 11 (12-20); Aspartate Amino Transferase 27 U/L (5-31); Blood Urea Nitrogen 10 mg/dL (9-16); Calcium 8.7 mg/dL (8.4-10.2); Carbon Dioxide 28 mmol/L (22-29); Chloride 107 mmol/L (96-108); Creatinine Clr Calc Pharmacy 54.8; Estimated Glomerular Filt Rate > 60; Magnesium 2.1 mg/dL (1.6-2.6); Potassium 4.1 mmol/L (3.3-5.1); Sodium 142 mmol/L (135-145); Total Protein 6.3 g/dL (6.5-8.0)
[2025-01-15 12:32] LABS: Troponin-I High Sensitivity 4.1 ng/L (<3.5-17.0)
--- NOTE | 2025-01-15 12:34 | PC.NURSE ---
Pt BIBA from home, per EMS pt family reports an increase in auditory hallucinations/paranoia. Pt has hx dementia. Calm and cooperative with care, EKG and VS obtained.
[2025-01-15 12:48] LABS: Resp Syncy Virus RNA Qual PCR NEGATIVE (Negative); SARS COV2 PCR INHOUSE NEGATIVE (Negative)
--- NOTE | 2025-01-15 13:20 | ED.GENADULT ---
HPI - General Adult General Chief complaint: General Medical Stated complaint: AMS Time Seen by Provider: 01/15/25 13:20 Source: patient, EMS, RN notes reviewed and old records reviewed Mode of arrival: EMS Limitations: no limitations History of Present Illness ED Provider: Mario Finney PA-C HPI narrative: 69-year-old Czech-speaking female with a history of Alzheimer's dementia, movement disorder, recurrent UTIs, unsteady gait, history of psychosis who presents to the ER for evaluation of hallucinations and paranoia. She was brought in by ambulance and comes from home. Her family reports she has been having increased auditory hallucinations and has been very paranoid. she lives at home with her daughter who provided history. her daughter reports that since last Friday 01/05 she has had exit seeking behaviors at home, extreme paranoia. her daughter reports that the patient is worried something is going to come into the house and kill her. She is worried that her son-in-law is poisoning her. She is refusing to eat at times. She was seen by her psychiatrist last week and started on buspirone and Seroquel with no improvement. She has had similar behaviors when she has had a UTI. She was checked for UTI last week and was negative. Her symptoms continued to worsen. Her daughter reports today she was extremely a rational, paranoid and confused. This prompted her to call 911 and get further evaluation. She states she has been psychiatrically admitted to [place] in the past. MD complaint: Paranoia Onset (ago): week(s) (2) Relieving factors: none Exacerbating factors: none Associated symptoms: confusion and loss of appetite Treatments prior to arrival: none Related Data Home Medications ?Medication ?Instructions ?Recorded ?Confirmed escitalopram oxalate 10 mg tablet 10 mg PO DAILY 10/31/23 01/16/25 trazodone 50 mg tablet 50 - 100 mg PO BEDTIME PRN Insomnia 07/02/24 01/16/25 buspirone 5 mg tablet 5 mg PO BID PRN anxiety 01/16/25 01/16/25 quetiapine 25 mg tablet 25 mg PO BEDTIME 01/16/25 01/16/25 Previous Rx's ?Medication ?Instructions ?Recorded cane #1 ea 05/07/24 ascorbic acid (vitamin C) 1,000 mg 1 g PO DAILY 90 days #90 tabs 07/02/24 tablet memantine 28 mg capsule 28 mg PO DAILY #30 ea 11/17/24 sprinkle,extended release 24hr methenamine hippurate 1 gram tablet 1 g PO DAILY 90 days #90 tabs 12/26/24 Allergies Allergy/AdvReac Type Severity Reaction Status Date / Time codeine Allergy Unknown Verified 01/15/25 11:38 Review of Systems Review of Systems: Yes all other systems are reviewed and are negative [facility] Past Medical History Medical History Extrapyramidal and movement disorder Alzheimer's dementia Alzheimer's dementia Depression Anxiety Surgical History Hx of cholecystectomy Family History Family History Mother Alzheimer's dementia HTN (hypertension) Sister Alzheimer's dementia Father Cardiovascular disease Other FH: mental illness Substance abuse Social History Social History Household Members: Spouse Housing: House Unable to assess alcohol history related to: Unknown Alcohol intake: never Patient Tobacco Use Status: Never used Tobacco e-Cigarette/Vaping Use: Never Used Second Hand Smoke Exposure: No service: No Current occupational status: retired Cognitive needs: Yes (Alzheimers) Hearing needs: No Vision needs: Yes Physical Exam ED Exam Exam: Appearance: Alert. Oriented X2. No acute distress. Head: normocephalic, atraumatic. Eyes: Pupils equal, round and reactive to light. ENT: Pharynx normal. No tonsillar swelling or exudate. Neck: Normal inspection. Neck supple. CVS: Normal heart rate and rhythm. Pulses normal. Respiratory: No respiratory distress. Breath sounds normal. Abdomen: Soft and nontender. +BS x4 Skin: Skin warm and dry. Normal skin color. Normal skin turgor. No rashes. Extremities: No lower extremity edema. No joint swelling. Neuro/psych: Oriented X 2. No motor deficit. No sensory deficit. CN II-XII intact. Normal speech. paranoid thoughts Vital Signs: Vital Signs - 24 hr 01/19/25 20:09 01/20/25 05:05 Temperature 97.7 F 98.0 F Pulse Rate 106 H 93 Respiratory Rate 20 17 Blood Pressure 147/78 H 142/84 H Pulse Oximetry 96 98 Oxygen Delivery Method Room Air Room Air BMI result Body Mass Index 21.8 Course Reevaluation(s) Reevaluation #1: Physician observation started at 14:06. Patient placed in physician observation because patient is awaiting CARE team evaluation for the possible need of inpatient psych admission. Medically cleared. UA not c/w UTI. blood likely from striaght cath. At the time observation was started patient's vital signs were stable. Patient is alert and oriented to persone and place. Neuro exam is non-focal. CV: RRR and lungs are clear. Will continue to monitor. Time: 14:06 Reevaluation #2: patient seen by CARE team. recommending psych consult which has been ordered. Time: 17:44 Reevaluation #3: RUQ U/S ordered on the wrong patient - this was done and showed possible choledocholithiasis. her LFTs are normal and she has NO pain or tenderness on exam. suspect this is not true choledocholithiasis with her lack of symptoms or objective findings. Additional Reevaluation(s): I Liliya Ordaz PA-C and the case management provider, the patient has been medicated with her evening meds, she is not sleeping, she is a flight risk, nursing is asking for an additional 50 mg of trazodone, I am ordering Time: 11:25 Date: 01/18/25 Provider: Hannah Moody MD Patient in physician observation for psychiatric evaluation.? No acute events reported overnight. No current complaints. VS stable.? Patient is in bed search status/pending CARE team evaluation. Will continue to monitor. Time: 07:35 Date: 01/19/25 Provider: Hannah Moody MD Patient in physician observation for psychiatric evaluation.? No acute events reported overnight. No current complaints. VS stable.? Patient is in bed search status/pending CARE team evaluation. Will continue to monitor. Consultations Consultation #1: Tamika Mahoney PA-C: Physician observation continued, no overnight events reported by nursing. VSS. PT awaiting psych evaluation by CARE team. Time: 08:18 Consultation #2: Nursing reports patient with increased agitation, is stating her daughter and grandchild was murdered, is trying to leave department to make the . Patient in emotional distress, I ordered 25 mg of quetiapine to manage psychotic symptoms. Patient is still awaiting psych eval. Time: 10:03 Consultation #3: Nursing reporting patient is still agitated after dosing with 25 mg quetiapine. Patient yelling at nurse, agitated. BP stable 111/74, will medicate with 10 mg sublingual Zyprexa. Time: 11:58 Additional Consultation(s): Time: 19:40 Date: 01/16/25 Provider: Mono Gannon, DO Patient in physician observation for psychiatric evaluation.? People patient we will be in the emergency department, long-term care placement, until pair source identified Time: 09:52 Date: 01/20/25 Provider: Delma Olsen, Physician observation ended at 952am. Patient has been cleared for discharge by the CARE team/PT/CM to go home with family. Will follow up as an outpatient. Medications Administered Discontinued Medications Generic Name Dose Route Start Last Admin Trade Name Freq PRN Reason Stop Dose Admin Buspirone HCl 10 mg 01/15/25 18:45 01/16/25 13:30 Buspirone Hcl 10 Mg Tablet PO Not Given Q6H ROXIE Calcium Carbonate 1,500 mg 01/15/25 14:16 01/15/25 14:37 Calcium Carbonate 750 Mg Tab.Chew PO 01/15/25 14:17 1,500 mg ONCE ONE Administration Donepezil HCl 5 mg 01/16/25 21:00 01/19/25 20:08 Donepezil Hcl 5 Mg Tablet PO 5 mg BEDTIME ROXIE Administration Escitalopram Oxalate 10 mg 01/16/25 09:00 01/20/25 09:38 Escitalopram Oxalate 10 Mg Tablet PO 10 mg DAILY ROXIE Administration Lorazepam 0.5 mg 01/17/25 12:51 01/17/25 13:25 Lorazepam 0.5 Mg Tablet PO 01/17/25 12:52 0.5 mg ONCE ONE Administration Memantine 28 mg 01/16/25 09:00 01/18/25 14:08 Memantine Hcl 10 Mg Tablet PO Not Given DAILY ROXIE Methenamine Hippurate 1 gm 01/16/25 09:00 01/20/25 09:38 Methenamine Hippurate 1 Gm Tablet PO 1 gm DAILY ROXIE Administration Patient Own 1 each 01/20/25 09:00 01/20/25 09:38 Medication ( PO 1 each Memantine Er 28mg) DAILY ROXIE Administration Olanzapine 10 mg 01/16/25 11:57 01/16/25 12:10 Olanzapine Odt 10 Mg Tab.Charandis LORELEIINGU 01/16/25 11:58 10 mg ONCE ONE Administration Olanzapine 2.5 mg 01/18/25 04:34 01/18/25 04:40 Olanzapine 2.5 Mg Tablet PO 01/18/25 04:35 2.5 mg ONCE ONE Administration Olanzapine 2.5 mg 01/18/25 18:35 01/18/25 18:41 Olanzapine 2.5 Mg Tablet PO 01/18/25 18:36 2.5 mg ONCE ONE Administration Olanzapine 10 mg 01/20/25 04:39 01/20/25 04:50 Olanzapine 10 Mg Tablet PO 01/20/25 04:40 10 mg ONCE ONE Administration Omeprazole 40 mg 01/15/25 14:16 01/15/25 14:37 Omeprazole 40 Mg Capsule. PO 01/15/25 14:17 40 mg ONCE ONE Administration Quetiapine Fumarate 25 mg 01/15/25 21:00 01/15/25 21:07 Quetiapine Fumarate 25 Mg Tablet PO 25 mg BEDTIME ROXIE Administration Quetiapine Fumarate 25 mg 01/16/25 10:00 01/16/25 11:09 Quetiapine Fumarate 25 Mg Tablet PO 01/16/25 10:01 25 mg ONCE ONE Administration Risperidone 0.5 mg 01/16/25 18:00 01/20/25 09:38 Risperidone 0.5 Mg Tablet PO 0.5 mg BID RXOIE Administration Trazodone HCl 50 mg 01/15/25 21:00 01/19/25 20:04 Trazodone Hcl 50 Mg Tablet PO 50 mg BEDTIME ROXIE Administration Trazodone HCl 50 mg 01/15/25 23:04 01/15/25 23:10 Trazodone Hcl 50 Mg Tablet PO 01/15/25 23:05 50 mg ONCE ONE Administration Medical Decision Making Medical Decision Making MDM Narrative: 69-year-old female with history of dementia, movement disorder, history of recurrent UTIs, history of behavioral disturbances in the past who presents to the ER from home via EMS for evaluation of worsening paranoia, hallucinations at home that are violent in nature. Patient's daughter feels defeated, she is doing everything she can to keep her safe at home. She is having her seen by psychiatrist and is always with her. Patient is paranoid that her son-in-law is trying to poison her. She is paranoid about her brother trying to harm her, who lives 100s of miles away. Vital signs are stable. Lab workup was unremarkable. Urinalysis done with straight catheterization does not reveal any sort of infection. Her physical exam is unremarkable, she does have paranoid thoughts. Concerned she may require a geriatric psychiatric admission. patient placed in physician observation and is pending crisis team evaluation Differential Diagnosis Differential Diagnoses: The differential diagnosis associated with the presentation includes acute psychosis, Alzheimer's dementia with behavioral disturbances, Parkinson's dementia with paranoia, UTI or metabolic abnormality Admission/Observation Consideration of admission/observation: Escalation of care including admission/observation considered Lab Data MDM Lab Attestation statement: I reviewed the patient's lab results. as above 01/15/25 12:05 01/15/25 12:05 Labs: Lab Results 01/15/25 01/15/25 Range/Units 12:05 13:42 WBC 7.5 (4.8-10.8) X10*3/uL RBC 4.26 (4.20-5.50) X10*6/uL Hgb 12.3 (12.0-16.0) g/dl Hct 36.9 L (37.0-47.0) % MCV 86.6 (80.0-98.0) fL MCH 28.9 (27.0-33.0) pg MCHC 33.3 (31.0-35.0) g/dl RDW 13.4 (11.0-16.0) % Plt Count 307 (160-400) X10*3/uL MPV 8.5 L (9.4-12.3) fL Immature Gran % (Auto) 0.1 (0.0-0.4) % Neut % (Auto) 65.8 (45-73) % Lymph % (Auto) 24.5 (20-40) % [place] % (Auto) 8.0 (2-11) % Eos % (Auto) 0.7 (0-4) % Baso % (Auto) 0.9 (0-2) % Lymph # (Auto) 1.8 (1.2-4.9) X10*3/uL [place] # (Auto) 0.6 (0.1-1.2) X10*3/uL Eos # (Auto) 0.1 (0.0-0.4) X10*3/uL Baso # (Auto) 0.1 (0.0-0.2) X10*3/uL Abs Immat Gran (auto) 0.01 (0.00-0.03) X10*3/uL Absolute Neuts (auto) 4.9 (2.0-8.3) x10*3/uL Absolute Nucleated RBC 0.000 (0.0-0.012) X10*3/uL Nucleated RBC % (auto) 0.0 (0.0-0.2) /100WBC Sodium 142 (135-145) mmol/L Potassium 4.1 D (3.3-5.1) mmol/L Chloride 107 (96-108) mmol/L Carbon Dioxide 28 (22-29) mmol/L Anion Gap 11 L (12-20) BUN 10 (9-16) mg/dL Creatinine 0.71 (0.5-1.4) mg/dL Estim Creat Clear Calc 54.8 Estimated GFR > 60 Random Glucose 93 (60-115) mg/dL Calcium 8.7 (8.4-10.2) mg/dL Magnesium 2.1 (1.6-2.6) mg/dL Total Bilirubin 0.4 (0.0-1.0) mg/dL AST 27 (5-31) U/L ALT 16 (0-31) U/L Alkaline Phosphatase 129 H (39-117) U/L Troponin I High Sens 4.1 D (<3.5-17.0) ng/L Total Protein 6.3 L (6.5-8.0) g/dL Albumin 3.5 (3.5-5.0) g/dL Urine Color Yellow Urine Appearance Clear Urine pH 6.5 (5.0-9.0) Ur Specific [place] 1.010 (1.005-1.025) Urine Protein Negative (Neg-Trace) mg/dL Urine Glucose (UA) Negative (Negative) mg/dL Urine Ketones Negative (Negative) mg/dL Urine Blood Large (3+) H (Negative) Urine Nitrite Negative (Negative) Ur Leukocyte Esterase Trace H (Negative) Urine RBC >20 H (0-2) /HPF Urine WBC 0-5 (0-5) /HPF Ur Squamous Epith Cells 0-2 (0-2) /HPF Urine Bacteria None Seen (None Seen) Hyaline Casts 0-2 (0-2) /LPF Influenza Type A (PCR) NEGATIVE (Negative) Influenza Type B (PCR) NEGATIVE (Negative) RSV RNA Qual (PCR) NEGATIVE (Negative) SARS-CoV-2 RNA (RT-PCR) NEGATIVE (Negative) Independent Interpretation I performed an independent interpretation of an: EKG Interpretation: ekg w/ normal sinus rhythm, HR 84 bpm, normal MD interval, no ST segment elevations or depressions Radiology Impression Discussion of test interpretation with radiology: I have reviewed the radiologist's reading. Independent Historian Clinical information obtained from an independent historian. History obtained from or confirmed by: Other (adult daughter at the bedside) External Record Review External record reviewed: Outpatient record, Prior outpatient labs and Prior outpatient radiology Prescription Management I considered prescription management with: Other (anxiolytic, antipsychotic) Chronic Conditions Patient?s care impacted by: Other (dementia) Social Determinants Patient?s care significantly limited by Social Determinants of Health including: Problems related to primary support group Critical Care Time Critical Care Time Critical Care Time: No Discharge Plan Discharge Clinical Impression: Paranoia Alzheimer's dementia Qualifiers: Alzheimer's disease onset: late onset Dementia severity: severe Dementia behavioral or psychological symptom: with psychotic disturbance Qualified Code(s): G30.1 - Alzheimer's disease with late onset Patient Disposition: Home, Self-Care Instructions: Alzheimer Disease (DC) Additional Instructions: You were seen in our Emergency Department today for treatment of a behavioral health issue. It is important after your visit that you follow up with either your behavioral health provider or a primary care doctor within 7 days.? If you have trouble finding a therapist you can reach out to [address] [phone] The National Suicide and Crisis Lifeline can be reached 7 days a week 24 hours a day.? Call 988 to speak with someone.? Return for any worsening symptoms or concerns such as thoughts of self harm or harm to others. Please call 911 if you feel your mental health is worsening.? Prescriptions: No Action memantine 28 mg capsule,sprinkle,ER 24hr 28 mg PO DAILY Qty: 30 3RF methenamine hippurate 1 gram tablet 1 g PO DAILY 90 Days Qty: 90 1RF quetiapine 25 mg tablet 25 mg PO BEDTIME buspirone 5 mg tablet 5 mg PO BID PRN (Reason: anxiety) escitalopram oxalate 10 mg tablet 10 mg PO DAILY (DME) cane Device See Rx Instructions .Route Qty: 1 0RF Rx Instructions: As directed, 999 days trazodone 50 mg tablet 50 - 100 mg PO BEDTIME PRN (Reason: Insomnia) ascorbic acid (vitamin C) 1,000 mg tablet 1 g PO DAILY 90 Days Qty: 90 1RF Interventions: ED Discharge Assessment Last Done: 01/20/25 10:19 Discharge Date/Time: 01/20/25 14:00 Print Language: Czech
[2025-01-15 13:55] LABS: Appearance Urine Clear; Glucose Urine UA Negative (Negative); PH 6.5 (5.0-9.0); Specific Gravity - Urine 1.010 (1.005-1.025); UMIC TRIGGER UACC YES
--- NOTE | 2025-01-15 20:46 | PC.NURSE ---
report given to Sol ACEVEDO in overflow, awaiting room to be clean to transport.
[2025-01-16 06:17] VITALS: BP 106/58; PULSE 87; RESP 16; TEMP 36.5; O2SAT 95
--- NOTE | 2025-01-16 11:16 | PHA.MEDREC ---
Addendum entered by Isamar Castle RPh 01/16/25 12:23: Reviewed by [facility] Original Note: Pharmacy Consult ? Medication Reconciliation Pharmacy has completed the medication reconciliation.Spoke to patient daughter that confirmed patient is taking all meds reflected on claims.
[2025-01-16 12:00] VITALS: BP 111/74; PULSE 97; RESP 18; TEMP 36.6; O2SAT 98
--- NOTE | 2025-01-16 12:04 | PC.NURSE ---
Pt up oob ambulating around room stating I need to go to my daughters right now, I need to leave. Pt attempting to exit seek, unable to be redirected back into bed/room. Ambulating with steady gait. ROLANDA Lundberg made aware of pt escalating behaviors. Sublingual zyprexa ordered- not stocked in overflow pyxis, clinic charge nurse aware. commissioned security officer sitting with pt to frequently redirect/decrease exit seeking behaviors and promote patient safety.
[2025-01-16] MEDS: OLANZapine ODT 10 MG TAB.RAPDIS TRANSLINGU (12:10)
--- NOTE | 2025-01-16 12:13 | PC.NURSE ---
Pt medicated per MAR with sublingual zyprexa- pt willingly took medication. railroad police remains at bedside with patient. Pt up ambulating around room with steady gait.
--- NOTE | 2025-01-16 17:09 | PC.NURSE ---
Addendum entered by Preeti Serrano RN 01/16/25 17:13: Patient is a 69-year-old Greenlandic-speaking female with a history of Alzheimer's dementia, movement disorder, recurrent UTIs, unsteady gait, history of psychosis who presents to the ER for evaluation of hallucinations and paranoia. Her family reports she has been having increased auditory hallucinations and has been very paranoid. she lives at home with her daughter who provided history. Her daughter reports that since last Friday 01/05 she has had exit seeking behaviors at home, extreme paranoia, is worried something is going to come into the house and kill her, and is worried that her son-in-law is poisoning her. She is refusing to eat at times. She was seen by her psychiatrist last week and started on buspirone and Seroquel with no improvement. Was recently treated for a UTI but urine negative at this time. Patient transitioned from overflow due to elopement risk. Changed into psych safe clothing at this time, belongings removed and secured into locker 4. Original Note: Medical History Extrapyramidal and movement disorder Alzheimer's dementia Alzheimer's dementia Depression Anxiety
--- NOTE | 2025-01-16 17:48 | PM.PSYCN ---
History of Present Illness Date of Service: 01/16/2025 Chief Complaint: AMS Discussed with referring provider: Yes Sources of Information: patient interviewed, chart reviewed and crisis/core team assessment reviewed HPI Narrative: Mrs. Thomas is a 69 year-old woman with hx of AD who was brought by family as pt has been presenting with increase paranoid delusions thinking that family are trying to poison her and that one of her daughters is because she believes she was poisoned. Per family, pt lives with daughter and is becoming more combative and attempting to wander out the home. Pertient labs completed in the ED include CBC mostly unremarkable. CMP without electrolytes abnormalities, BUN 10, Cr 0.71, creatinine clearance 54.8. UA with blood but no bacteria nor leukocytes. She has been dx with AD for about 5 years. She had an inpatient psych admission at [facility] last year in 09/2023. She was on olanzapine 20mg po qhs which was discontinued last fall due to excessive sedation. Pt had episode of wondering and getting lost from the home back in 10/2024 and was found 3 hrs later. Pt seen in the ED. Pt presents as pleasant. She does not know where she is in terms of name of this place nor town. She does have some idea that this may be a hospital although this fluctuates. She does not know the month nor the year. She tells this marketing copywriter that she was poisoned and other family member have been poisoned as well. She thinks one of her daughters , which is not the case. Note action tremor, no significant cogwheel on both arms. No significant shuffling gait. Pt was recently started on seroquel 25mg po qhs. Collateral information gathered from both daughter Diana ([phone]) and Xochilt (with whom pt lives [phone]). Xochilt reports she is no longer able to care for her mother. She reports she works at home and is physically with her 08/01 but she cannot be with her all of the time. She is worried that she is not able to keep her safe in the home. [facility] Medical History Extrapyramidal and movement disorder Alzheimer's dementia Alzheimer's dementia Depression Anxiety Surgical History Hx of cholecystectomy Family History: none Social History: Pt has two daughter. Currently lives with one of them Substance History: none Trauma History: none Diagnostics Vital Signs (24Hr): Vital Signs - 24 hr 01/15/25 18:49 01/15/25 19:41 01/15/25 23:00 Temperature 97.8 F 97.9 F Pulse Rate 71 70 Respiratory Rate 20 20 18 Blood Pressure 165/86 H 150/80 H Pulse Oximetry 97 96 Oxygen Delivery Method Room Air Room Air 01/15/25 23:29 01/16/25 06:17 01/16/25 12:00 Temperature 97.3 F 97.7 F 97.8 F Pulse Rate 81 87 97 Respiratory Rate 18 16 18 Blood Pressure 141/82 H 106/58 L 111/74 Pulse Oximetry 96 95 98 Oxygen Delivery Method Room Air Room Air Room Air BMI result Body Mass Index 21.8 Labs 01/15/25 12:05 01/15/25 12:05 Labs: Laboratory Results - last 48 hr 01/15/25 01/15/25 12:05 13:42 WBC 7.5 RBC 4.26 Hgb 12.3 Hct 36.9 L MCV 86.6 MCH 28.9 MCHC 33.3 RDW 13.4 Plt Count 307 MPV 8.5 L Immature Gran % (Auto) 0.1 Neut % (Auto) 65.8 Lymph % (Auto) 24.5 [place] % (Auto) 8.0 Eos % (Auto) 0.7 Baso % (Auto) 0.9 Lymph # (Auto) 1.8 [place] # (Auto) 0.6 Eos # (Auto) 0.1 Baso # (Auto) 0.1 Abs Immat Gran (auto) 0.01 Absolute Neuts (auto) 4.9 Absolute Nucleated RBC 0.000 Nucleated RBC % (auto) 0.0 Sodium 142 Potassium 4.1 D Chloride 107 Carbon Dioxide 28 Anion Gap 11 L BUN 10 Creatinine 0.71 Estim Creat Clear Calc 54.8 Estimated GFR > 60 Random Glucose 93 Calcium 8.7 Magnesium 2.1 Total Bilirubin 0.4 AST 27 ALT 16 Alkaline Phosphatase 129 H Troponin I High Sens 4.1 D Total Protein 6.3 L Albumin 3.5 Urine Color Yellow Urine Appearance Clear Urine pH 6.5 Ur Specific [place] 1.010 Urine Protein Negative Urine Glucose (UA) Negative Urine Ketones Negative Urine Blood Large (3+) H Urine Nitrite Negative Ur Leukocyte Esterase Trace H Urine RBC >20 H Urine WBC 0-5 Ur Squamous Epith Cells 0-2 Urine Bacteria None Seen Hyaline Casts 0-2 Influenza Type A (PCR) NEGATIVE Influenza Type B (PCR) NEGATIVE RSV RNA Qual (PCR) NEGATIVE SARS-CoV-2 RNA (RT-PCR) NEGATIVE Imaging Radiology Impressions: ITS Impressions Abdomen Ultrasound 01/15/25 15:13 IMPRESSION: Questionable choledocholithiasis. Electronically signed by: Krishna Aragon MD 01/15/2025 03:44 PM EDT RP Mental Status Exam Mental Status Exam Narrative: Appearance: wearing hospital gown, fair hygiene, in NAD Behavior: friendly Psychomotor: action tremors both arms, no cogwheel nor rigidity Speech: clear, regular rate/rhythm/volume, spontaneous TP: mostly linear TC: teeling this marketing copywriter how different family members are being poisoned Mood: good Affect: congruent SI: none HI: none VH/AH: no overt Delusions: paranoid delusions Insight/judgment: impaired x 2. Memory/cog: alert, oriented mostly to self. severe cognitive impairments. Medications Medications Current Medications Escitalopram Oxalate (Escitalopram Oxalate 10 Mg Tablet) 10 mg PO DAILY ON LICENSE OF [facility] Last Admin: 01/16/25 11:08 Dose: 10 mg Memantine (Memantine Hcl 10 Mg Tablet) 28 mg PO DAILY ON LICENSE OF [facility] Last Admin: 01/16/25 11:09 Dose: 28 mg Methenamine Hippurate (Methenamine Hippurate 1 Gm Tablet) 1 gm PO DAILY ON LICENSE OF [facility] Last Admin: 01/16/25 11:08 Dose: 1 gm Risperidone (Risperidone 0.5 Mg Tablet) 0.5 mg PO BID ON LICENSE OF [facility] Trazodone HCl (Trazodone Hcl 50 Mg Tablet) 50 mg PO BEDTIME ON LICENSE OF [facility] Last Admin: 01/15/25 21:07 Dose: 50 mg Allergies Allergies Allergy/AdvReac Type Severity Reaction Status Date / Time codeine Allergy Unknown Verified 01/15/25 11:38 Assessment & Plan Assessment & Plan (1) Major neurocognitive disorder due to another medical condition, with other behavioral or psychological disturbance: Status: Acute Code(s): F02.818 - Dementia in other diseases classified elsewhere, unspecified severity, with other behavioral disturbance Plan Mrs. Thomas is a 69 year-old woman with hx of advanced AD. Pt was brought to due increase paranoid delusions. She had been on olanzapine in the past which was discontinue due to over sedation and it seemed higher doses causing more significant EPS. Currently no overt EPS but did note action tremor. Discussed with family trying low dose risperidone as it is better antipsychotic than seroquel at low doses and less sedating than olanzapine. Start risperidone 0.5mg po BID. start aricept low dose 5mg po qhs. Will refer to case management to discuss with family placement. No need for inpatient level of care at this time but will follow up with pt while in the ED. Total time managing care of this patient today ____ minutes.
--- NOTE | 2025-01-16 19:34 | PC.NURSE ---
Assumed care of patient at 1845, patient appears to be in no apparent distress this evening, calm and cooperative, wandering around BH pod, appears to be confused, walking into other patient's rooms at this time. Continue plan of care for Case management follow up
[2025-01-16 21:12] VITALS: BP 125/73; PULSE 101; RESP 18; TEMP 36.6; O2SAT 97
--- NOTE | 2025-01-16 21:45 | MHC.CM.ED ---
CM attempted to meet with patient. Pt has advanced AD. Poor historian. Wandering in pod. Trying to enter other patients rooms. CM reviewed record, CARE team note and human resources psychologist evaluation. Per psych, patient is not IPLOC. Basia Alonzo made some medication changes and will follow her in the pod. IVAN spoke with daughter/HCP Xochilt Thomas. She has been caring for her mother for about a month. She is overwhelmed with caring for her mother and 2 small children. She tells CM that her mother is not safe at home. She has been wandering. She walks with steady gait. She thinks her family is trying to kill her with poison, she tried to open the car door, so they have to enable the child safety locks so she doesn't open the doors. Xochilt and her sister, Diana worked with [employer] to complete the MH application. It was submitted 2 weeks ago. Pt has no mobility concerns, so STR is not needed. CM will place local referrals with MH pending. Daughter is aware that patient will not be admitted to the hospital and will remain in pod for safety pending LTC bed. Will place local referrals to locked memory units. Daughter is aware that CM may need copy of MH application if facility offers her mother a bed. IVAN called and spoke with Diana ,daughter, ([phone]) at HCP request to update her on plan of care. She is in agreement.
--- NOTE | 2025-01-17 00:56 | PC.NURSE ---
Took over from Laura Martínez at 23:00, pt sleeping at this time.
[2025-01-17 05:37] VITALS: BP 155/84; PULSE 115; TEMP 37.1; O2SAT 97
--- NOTE | 2025-01-17 06:12 | PC.NURSE ---
pt sleeping at this time.
--- NOTE | 2025-01-17 07:52 | PC.NURSE ---
This Rn assumed care of patient @ 0700. Patient noted to be wandering around BH exit seeking stating I have to get to the my killed my daughters children . Patient easily redirected back to room, patient calm and cooperative at this time. Notified provider of behaviors no new orders.
[2025-01-17 08:37] VITALS: BP 107/67; PULSE 104; RESP 12; TEMP 36.5; O2SAT 97
--- NOTE | 2025-01-17 13:28 | PC.NURSE ---
Patient displaying increased anxiety stating They are going to come in here and kill me . Notified Provider, received new order for ativan. Administered per AUG effectiveness pending.
[2025-01-17 18:41] VITALS: BP 109/62; PULSE 100; RESP 16; TEMP 37.2; O2SAT 96
--- NOTE | 2025-01-17 20:47 | PC.NURSE ---
Patient awake and ambulatory with steady gait around the milieu of the POD, patient easily redirectable. calm and cooperative w/ care. medicated w/ evening meds per AUG.
--- NOTE | 2025-01-18 04:00 | PC.NURSE ---
patient continuously coming out of room seemingly disoriented - asking where her sister is. patient reoriented to time/place but ineffective at this time. provider notified/aware that patient is becoming increasingly restless. pending orders at this time.
--- NOTE | 2025-01-18 04:43 | PC.NURSE ---
one time dose of zyprexa administered w/o difficulty. pt willingly took medication. effectiveness pending.
[2025-01-18 05:25] VITALS: BP 137/72; PULSE 96; RESP 17; TEMP 36.2; O2SAT 98
--- NOTE | 2025-01-18 10:40 | PC.NURSE ---
delay in medication administration d/t patient sleeping. will administer medication when able.
--- NOTE | 2025-01-18 14:08 | PC.NURSE ---
Namenda dose held due to it being non-formulary. Pt is on an extended release, order is written for immediate release 2.8 tablets, unable to administer accurate dose for 0.8 of a tablet . Pharmacy aware, medication held indefinitely until family is able to bring in correct home medication.
--- NOTE | 2025-01-18 14:13 | PC.NURSE ---
Daughter Xochilt successfully contacted for Namenda home dose, states she can bring it in tomorrow for the pt. Pharmacy aware, pt resting comfortably in bed.
[2025-01-18 15:31] VITALS: BP 134/54; PULSE 109; RESP 20; TEMP 37.1; O2SAT 97
--- NOTE | 2025-01-18 17:30 | MHC.EDTECH ---
Assist patient with shower changed linen gave fresh hospital clothes. Patient is calm appears to be no distress. Nurse aware.
[2025-01-18 18:12] VITALS: BP 135/84; PULSE 120; RESP 16; TEMP 36.2; O2SAT 97
--- NOTE | 2025-01-18 19:19 | PC.NURSE ---
Pt became increasingly agitated after a visit from her , and believes her grandson has and she needs to attend his . Attempted to contact daughter Xochilt to prove her family members are still alive, however there was no answer. approved early administration of risperidone and trazodone due to increased agitation. Care ongoing.
--- NOTE | 2025-01-19 10:49 | MHC.CM.PN ---
Addendum entered by Roseline Peoples RN 01/19/25 14:51: PATIENT IS ACTIVE WITH [facility] REFERRAL PLACED FOR AGENCY TO FOLLOW Original Note: MESSAGE LEFT FOR DAUGHTERMATT, AT [phone]. REQUEST FOR A CALL BACK TO DISCUSS WHERE IN THE PROCESS WE ARE FOR SECURING BENEFITS FOR PATIENT. CALL BACK NUMBER FOR THIS EMERGENCY MEDICINE MEDICAL DIRECTOR LEFT ON MESSAGE. CM FOLLOWING.
[2025-01-19 20:09] VITALS: BP 147/78; PULSE 106; RESP 20; TEMP 36.5; O2SAT 96
--- NOTE | 2025-01-19 21:56 | PC.NURSE ---
Assumed care of patient at 1845, patient appears to be in no apparent distress at this time, ambulating around BH pod with steady gait offering no complaints to this RN. Continue plan of care for Case Management follow up
--- NOTE | 2025-01-20 04:53 | PC.NURSE ---
PT was seen pacing around- per report she has not slept prior to this RN coming onto the pod. CURTIS callahan message'd provider [facility] to put a prn sleep medication for pt. Zyprexa was given per AUG order. Pt is in her room, on her bed. Will continue to monitor.
[2025-01-20 05:05] VITALS: BP 142/84; PULSE 93; RESP 17; TEMP 36.7; O2SAT 98
[2025-01-20] MEDS: MEMANTINE 28 MG 1 EACH PO (09:38)
--- NOTE | 2025-01-20 09:41 | PC.NURSE ---
Daughter called states she wants to get her mom discharged back to her home. Called case management to see if that is a possibility. Patient is to be discharged home with daughter.
--- NOTE | 2025-01-20 09:52 | MHC.CM.ED ---
Received call from pt's dtr Xochilt with whom pt resides. Xochilt would like to take pt home as she feels boarding in the ED awaiting LTC placement is not an appropriate disposition for pt. Xochilt has been in contact with the [facility] and pt will sign on to services. Pt also has [facility] and Xochilt is privately hiring a medicare sales representative to stay with pt while she works from home. Pt's spouse will transport pt to home. ED MD and RN aware of plan.
--- NOTE | 2025-01-20 10:11 | PC.NURSE ---
Patient was incontinent and voided all over the floor she was trying to clean it up. Brought patient to get a shower and change clothes. Family coming to pick her up soon.
[2025-01-20 10:19] VITALS: BP 118/73; PULSE 116; RESP 18; TEMP 36.6; O2SAT 98
== END 2025-01-20 14:00 | disposition home or self-care (01) ==
PROVIDERS: Physician Assistant Medical; Emergency Provider Emergency Medicine; PCP Internal Medicine
DX: G30.1 Alzheimer's disease with late onset (principal); R41.82 Altered mental status, unspecified; R10.2 Pelvic and perineal pain; F02.811 Dementia in other diseases classified elsewhere, unspecified severity, with agitation; Z03.818 Encounter for observation for suspected exposure to other biological agents ruled out; Z79.899 Other long term (current) drug therapy
CPT/HCPCS: 76705; 80053; 81001; 83735; 84484; 85025; 87637; 93005; 99285; S9485

== ENCOUNTER → 2025-01-15 11:39 | Outpatient (BNV) | payer MEDICARE, SELFPAY | PROVIDERS: Emergency Provider Emergency Medicine Emergency Medical Services; PCP Internal Medicine; Visit Provider Internal Medicine Cardiovascular Disease | DX: R41.82 Altered mental status, unspecified (principal) | CPT/HCPCS: 93010 ==

== ENCOUNTER → 2025-01-15 11:44 | Outpatient (BNV) | payer MEDICARE, SELFPAY | PROVIDERS: Emergency Provider Emergency Medicine Emergency Medical Services; PCP Internal Medicine; Visit Provider Social Worker | DX: F02.818 Dementia in other diseases classified elsewhere, unspecified severity, with other behavioral disturbance (principal) | CPT/HCPCS: 99285 ==

== ENCOUNTER → 2025-01-15 14:16 | Outpatient (BNV) | payer MEDICARE, SELFPAY | PROVIDERS: Emergency Provider Emergency Medicine Emergency Medical Services; PCP Internal Medicine; Visit Provider Radiology Diagnostic Radiology | DX: R10.13 Epigastric pain (principal) | CPT/HCPCS: 76705 ==

== ENCOUNTER 2025-02-09 13:10 | Outpatient (AMB) | payer MEDICARE, MEDICAID, SELFPAY ==
--- NOTE | 2025-02-09 13:33 | MHC.OFFVIS ---
Intake Visit Reasons: / Intake Note: Patient is present for / Urology Medication:VITAMIN C,METHENAMINE HIPPURATE Antibiotic Allergy:NONE Blood Thinner:NONE [employer] Lead Required: No Allergies codeine Allergy (Verified 02/09/25 14:11) Unknown Medication List - Last Reconciled 02/09/25 by DAVID Marquez ascorbic acid (vitamin C) 1 g PO DAILY 90 days buspirone 5 mg PO BID PRN cane As directed, 999 days escitalopram oxalate 10 mg PO DAILY memantine 28 mg PO DAILY methenamine hippurate 1 g PO DAILY 90 days quetiapine 25 mg PO BEDTIME trazodone 50 - 100 mg PO BEDTIME PRN HPI Comments Details: Irma is a very pleasantly confused 69-year-old female patient of Dr. 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 She has a past medical history of depression, anxiety, and Alzheimer's dementia. She presents to the office today for follow-up. Of note, patient was seen approximately 3 months ago as a new patient for recurrent urinary tract infections at which time a retroperitoneal ultrasound was ordered for further assessment evaluation. These results were reviewed and communicated with the patient and her daughter today. 01/09 bilateral kidneys with no calculi, lesions, and or hydronephrosis. The urinary bladder is unremarkable. Postvoid bladder volume was estimated at 11 mL. She reports compliance with methenamine and vitamin-C. Patient's daughter who provides much of today's history as patient is forgetful she reports patient has typical UTI like symptoms are change in mental status as she does not typically present with any lower urinary tract symptoms. She reports since her last office visit here she did have change in mental status twice however was not found to have a urinary tract infection and believes this was related to her dementia. Urine cultures 10/09 no growth, 12/09 > 100,000 cfu/ml Mixed bacterial arya characteristic of urogenital contamination, 05/11 > 100,000 cfu/ml Mixed bacterial arya characteristic of urogenital contamination, 11/09 no growth, 01/09 no growth We discussed at length potential causes of recurrent urinary tract infections and or lower urinary tract symptoms. We discussed trial of Vagifem and or Estrace cream however daughter does not believe this will be possible at this time. She denies any issues with her bowels. [facility] Medical History Extrapyramidal and movement disorder Alzheimer's dementia Alzheimer's dementia Depression Anxiety Surgical History Hx of cholecystectomy Family History Mother Alzheimer's dementia HTN (hypertension) Sister Alzheimer's dementia Father Cardiovascular disease Other FH: mental illness Substance abuse Social History Household Members: Spouse Housing: House Unable to assess alcohol history related to: Unknown Alcohol intake: never Patient Tobacco Use Status: Never used Tobacco e-Cigarette/Vaping Use: Never Used Second Hand Smoke Exposure: No service: No Current occupational status: retired Cognitive needs: Yes (Alzheimers) Hearing needs: No Vision needs: Yes Review of Systems Const Unobtainable due to mental condition Physical Exam Const General: cooperative, healthy appearing, comfortable, no acute distress, well developed, alert and awake Nutritional Appearance: average body habitus Orientation/consciousness: oriented to person Limitations: no limitations HEENT Head: Yes normal to inspection, Yes normocephalic and Yes atraumatic Ears: hearing grossly normal bilaterally Eyes General: appearance normal, both eyes and all related structures Neck Neck: Yes normal visual inspection and Yes trachea midline Chest Chest palpation & inspection: normal inspection of the chest Resp Effort & Inspection: normal respiratory effort and able to speak in complete sentences Cardio Rate: regular rate GI Inspection: Yes normal to inspection General: Yes no CVA tenderness Back/Spine/Pelvis Back: no CVA tenderness Skin General skin exam: no rashes or lesions noted Neuro General: oriented to person Extrem General: Yes normal to inspection Psych Appearance: grossly normal and well kempt Mental Status: mental status grossly normal Speech and movement: Normal speech and movement present and Clear speech present Affect: normal affect Attitude: cooperative Thought process: Normal thought process present Thought content: Normal thought content present Insight: Fair insight present (Psych) Judgement: Fair judgement present (Psych) Results AMB Urinalysis, Automated UA Leukoctes 0 Lino/uL Last Edit by KAREEM Cifuentes on 02/09/25 13:56 UA Nitrite Negative Last Edit by KAREEM Cifuentes on 02/09/25 13:56 UA Urobilinogen 0.2 mg/dL [facility] 02/09/25 13:56 UA Protein 0 mg/dL Last Edit by Alie Bower [facility] on 02/09/25 13:56 UA pH 6.0 Last Edit by Alie Bower [facility] on 02/09/25 13:56 UA Blood 10 Gus/uL Last Edit by Alie Bower [facility] on 02/09/25 13:56 UA Specific [place] 1.015 Last Edit by Alie Bower [facility] on 02/09/25 13:56 UA Ketone Negative Last Edit by Alie Bower [facility] on 02/09/25 13:56 UA Bilirubin 0 mg/dL Last Edit by Alie Bower [facility] on 02/09/25 13:56 UA Glucose 0 mg/dL Last Edit by Alie Bower [facility] on 02/09/25 13:56 Results Reviewed Results Reviewed: Laboratory Last Values Urine pH (Auto) 6.0 02/09/25 13:55 Specific [place] (Auto) 1.015 02/09/25 13:55 Urine Protein (Auto) 0 mg/dL 02/09/25 13:55 Glucose (UA)(Auto) 0 mg/dL 02/09/25 13:55 Urine Ketones (Auto) Negative 02/09/25 13:55 Urine Blood (Auto) 10 Gus/uL 02/09/25 13:55 Urine Nitrite (Auto) Negative 02/09/25 13:55 Urine Bilirubin (Auto) 0 mg/dL 02/09/25 13:55 Urine Urobilinogen (Auto) 0.2 mg/dL 02/09/25 13:55 Leukocyte Esterase (Auto) 0 Lino/uL 02/09/25 13:55 Date of Service: 12/16/24 Procedure(s): US retroperitoneal comp FINDINGS: Right kidney: The right kidney measures 8.8 x 3.0 x 4.1 cm. Renal parenchymal echotexture and thickness are normal. There are no masses. There is no hydronephrosis or renal calculi. Left Kidney: The left kidney measures 8.1 x 4.8 x 4.5 cm. Renal parenchymal echotexture and thickness are normal. There are no masses. There is no hydronephrosis or renal calculi. The urinary bladder is unremarkable. Bilateral ureteral jets are identified. Before voiding, the urinary bladder measured 7.4 x 8.9 x 9.3 cm, for an estimated volume of 319 mL. After voiding, the urinary bladder measured 3.1 x 1.6 x 4.3 cm, for an estimated volume of 10.9 mL. IMPRESSION: Unremarkable retroperitoneal ultrasound. Post void bladder residual of 10.9 mL. Assessment & Plan Assessment & Plan (1) Recurrent UTI: Code(s): N39.0 - Urinary tract infection, site not specified Category: Medical Plan In office urinalysis results reviewed with the patient today; as noted above will send for urine cytology. Recent retroperitoneal ultrasound results reviewed with the patient and her daughter today; as noted above. She currently denies any UTI like symptoms. We did discussed potential causes of recurrent urinary tract infections as well as further treatment options and risks and benefits of these treatment options. Will continue with surveillance monitoring. Continue methenamine and vitamin-C as discussed and prescribed; refill provided. Discussed UTI prevention with D mannose supplement, vitamin-C, increasing fluid intake, behavioral therapy with timed voiding, perineal hygiene and postcoital voiding, and management of constipation with stool softeners and increased fiber intake. Follow-up in 3-6 months with [facility]; or sooner with any issues, concerns, and or questions. Orders: Orders AMB Urinalysis Automated Today Z13.9 - Encounter for screening, unspecified Urine Cytology Today N39.0 - Urinary tract infection, site not specified Medications: New ascorbic acid (vitamin C) 1 g PO DAILY 90 tabs 1RF 90 days N39.0 - Urinary tract infection, site not specified Refilled methenamine hippurate 1 g PO DAILY 90 tabs 1RF 90 days N39.0 - Urinary tract infection, site not specified Patient Instructions: The patient had an opportunity to ask questions regarding the treatment plan. All questions were answered. Physical exam, labs, and imaging were discussed and reviewed in detail. As well as risks, benefits, and discussion of treatment choices. No major barriers to understanding were identified. The patient expressed understanding and agreement with the above treatment plan. The patient was made aware they should contact our office by phone for worsening of their current condition, the appearance of new symptoms, or with any questions or concerns. Compliance is encouraged with any medications and follow up testing that is ordered. It is a privilege to be allowed the opportunity to participate in? your urological care.? Again, if you have any questions or concerns If you have any questions or concerns please do not hesitate to contact me. The office is [phone]. This note is constructed using voice recognition software. While every effort has been made to ensure accuracy director power errors may have been included. Yours sincerely, DAVID Marquez Coding Level of Care Code Est Pt Level 3 (70187) Complex EM visit Add On G2211 Diagnoses Recurrent UTI N39.0
--- OUTSIDE RECORDS SUMMARY | 2025-02-09 14:31 | XMS_ITS | Clinical Summary ---
Author Organization [address] [facility] Address [address] [place] [address] Phone Care Team Providers Care Performance Engineer Name Role Phone Ghazal Hong MD Primary Care Provider [phone] Allergies No known active allergies Active Problems Problem Noted Date Diagnosed Date Encounter for medical assessment 01/05/2025 Moderate dementia with psych otic disturbance ([facility] V24, [facility] V28) 01/05/2025 Visual hallucinations 01/05/2025 At high risk for elopement 01/05/2025 No known problems 07/15/2024 Encounters Date Type Department Care Team Description 01/05/2025 11:30 AM EDT PACE Assessment 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, with psychotic disturbance ([facility] V24, CMS/HCC V28); Visual hallucinations; At high risk for elopement; Caregiver not readily available 11/19/2024 Lab Requisition [facility] - Main Lab [address] [facility] [place] [address] Darrin Ramsey MD Unspecified dementia, unspecified severity, without behavioral disturbance, psychotic disturbance, mood disturbance, and anxiety ([facility] V24, CMS/[facility] V28); Depression, unspecified from Last 3 Months Surgical History Surgery Date Site/Laterality Comments CHOLECYSTECTOMY PROCEDURE: LAPAROSCOPY, CHOLECYSTECTOMY Medical History Medical History Date Comments Alzheimer dementia ([facility] V24, [facility] V28) Depression At high risk for elopement 01/05/2025 Family History Relation Name Status Comments Brother Alive Father Mother Sister Alive Social History Tobacco Use Types Packs/Day Years Used Date Smoking Tobacco: Never Alcohol Use Standard Drinks/Week Comments No 0 (1 standard drink = 0.6 oz pur e alcohol) Comments Unknown Sex and Gender Information Value Date Recorded Sex Assigned at Female 12/17/2024 6:35 PM EDT Legal Sex Female 4:32 AM EST Gender Identity Female 12/17/2024 6:35 PM EDT Sexual Orientation Straight 12/17/2024 6: 35 PM EDT Obstetrics History Plan of Treatment Health Maintenance Due Date Last Done Comments Breast Cancer Screening 1955 DTaP,Tdap,and Td Vaccines (1 - Tdap) 1972 Pneumococcal Vaccine: 50+ Years (1 of 1 - PCV) 2003 Zoster Vaccines (1 of 2) 2003 COVID-19 Vaccine ( season) 2024 11/10/2021, 06/07/2021, 10/07/2020, Additional history exists Colorectal Cancer Screening: Colonoscopy 05/29/2024 Falls Risk Assessment 05/29/2024 Osteoporosis Screening (Bone Density Screening) 05/29/2024 Social Influencers of Health Screening 05/29/2024 Depression Screening 06/18/2024 Influenza Vaccine (#1) 2025 8, 04/03/2017, 03/16/2016, Additional history exists RSV Immunization Adult Patients (1 - 1-dose 75+ series) 2028 Hepatitis [...] to complete this topic RSV Immunization Patients Under 20 months Aged Out No longer eligible based on patient's age to complete this topic Varicella Vaccines Aged Out No longer eligible based on patient's age to complete this topic Procedures Procedure Name Priority Date/Time Associated Diagnosis Comments BASIC METABOLIC PANEL Routine 11/19/2024 10:52 AM EDT Unspecified dementia, unspecified severity, without behavioral disturbance, psychotic disturbance, mood disturbance, and anxiety ([facility]/HCC V24, [facility] V28) Depression, unspecified COMPLETE BLOOD COUNT Routine 11/19/2024 10:52 AM EDT Unspecified dementia, unspecified severity, without behavioral disturbance, psychotic disturbance, mood disturbance, and anxiety ([facility] V24, [facility] V28) Depression, unspecified HEPATITIS C SCREENING Routine 03/20/2014 from Last 3 Months or Most Recently Relevant to Health Maintenance Results * (ABNORMAL) Complete blood count (11/19/2024 10:52 AM EDT) WBC 8.7 4.8 - 10.8 K/mcL LAB HEMETOLOGY METHOD 11/19/2024 1:[address] [facility] RBC 4.80 3.80 - 4.80 M/mcL LAB [facility] Hemoglobin 13.8 11.5 - 16.0 g/dL LAB HEMETOLOGY METHOD 11/19/2024 1:19 PM [facility] Hematocrit 43.7 35.0 - 47.0 % LAB HEMETOLOGY METHOD 11/19/2024 1:19 PM [facility] MCV 91.4 79.0 - 98.0 FL LAB HEMETOLOGY METHOD 11/19/2024 1:[address] [facility] MCH 28.9 27.0 - 32.0 pcg LAB HEMETOLOGY METHOD 11/19/2024 1:[address] [facility] MCHC 31.6(L) 32.0 - 37.0 g/dL LAB HEMETOLOGY METHOD 11/19/2024 1:[address] [facility] RDW 13.0 11.0 - 15.0 % LAB HEMETOLOGY METHOD 11/19/2024 1:[address] [facility] Platelets 470(H) 130 - 400 K/mcL LAB HEMETOLOGY METHOD 11/19/2024 1:[address] [facility] MPV 9.2 7.0 - 11.0 FL LAB HEMETOLOGY METHOD 11/19/2024 1:[address] [facility] NRBC 0.0 <1.0 % LAB HEMETOLOGY METHOD 11/19/2024 1:[address] [facility] NRBC Absolute 0.00 <0.10 K/mcL LAB HEMETOLOGY METHOD 11/19/2024 1:[address] [facility] Blood Venous blood specimen / Unknown Venipuncture / Unknown 11/19/2024 10:52 AM EDT 11/19/2024 12:59 PM EDT us Darrin Ramsey MD LAB BLOOD ORDERABLES Final R esult [facility] [address] [place] [address], * (ABNORMAL) Basic metabolic panel (11/19/2024 10:52 AM EDT) Sodium 137 133 - 145 mmol/L LAB CHEMISTRY METHOD 11/19/2024 1:[address] [facility] Potassium 3.8 3.5 - 5.5 mmol/L LAB CHEMISTRY METHOD 11/19/2024 1:[address] [facility] Chloride 102 96 - 110 mmol/L LAB CHEMISTRY METHOD 11/19/2024 1:36 PM [facility] CO2 28 21 - 32 mmol/L LAB CHEMISTRY METHOD 11/19/2024 1:36 PM [facility] Anion Gap 7 3 - 11 LAB CHEMISTRY METHOD 11/19/2024 1:36 PM [facility] Glucose 109(H) 70 - 100 mg/dL LAB CHEMISTRY METHOD 11/19/2024 1:36 PM [facility] BUN 9 5 - 25 mg/dL LAB CHEMISTRY METHOD 11/19/2024 1:36 PM [facility] Creatinine 0.83 0.50 - 1.10 mg/dL LAB CHEMISTRY METHOD 11/19/2024 1:36 PM [facility] eGFR 75 >=60 mL/min/1. 73m2 LAB CHEMISTRY METHOD 11/19/2024 1:36 PM [facility] Comment:Calculation based on the Chronic Kidney Disease Epidemiology Collaboration (CKD-EPI) equation refit without adjustment for race. BUN/Creatinine Ratio 10.8 LAB CHEMISTRY METHOD 11/19/2024 1:36 PM [facility] Calcium 9.0 8.5 - 10.5 mg/dL LAB CHEMISTRY METHOD 11/19/2024 1:36 PM [facility] Blood Venous blood specimen / Unknown Venipuncture / Unknown 11/19/2024 10:52 AM EDT 11/19/2024 12:59 PM EDT us Darrin Ramsey MD LAB BLOOD ORDERABLES Final R esult [facility] [address] [place] [address], [place] [phone] * Hepatitis C Screening (03/20/2014) Hepatitis C Screening Abstracted Historical Provider HEALTH MAINTENANCE Final Result from Last 3 Months or Most Recently Relevant to Health [place] [address] 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
--- OUTSIDE RECORDS SUMMARY | 2025-02-09 14:31 | XMS_ITS | Encounter Summary ---
[facility] Address [address] [place] [address] Care Team Providers Care Payroll Bookkeeper Name Role Phone Ghazal Hong MD Primary Care Provider [phone] Encounter Details Date Type Department Care Team (Late st Contact Info) Description 11/19/2024 Lab Requisition [facility] - Main Lab [address] [facility] [place] [address] Darrin Ramsey MD [address] [place] [address] Unspecified dementia, unspecified severity, without behavioral disturbance, psychotic disturbance, mood disturbance, and anxiety (CMS/HCC V24, CMS/HCC V28); Depression, unspecified Social History Tobacco Use Types Packs/Day Years [...] Orientation Straight 12/17/2024 6: 35 PM EDT documented as of this encounter Plan of Treatment Not on file documented as of this encounter Procedures Procedure Name Priority Date/Time Associated Diagnosis Comments COMPLETE BLOOD COUNT Routine 11/19/2024 10:52 AM EDT Unspecified dementia, unspecified severity, without behavioral disturbance, psychotic disturbance, mood disturbance, and anxiety (CMS/HCC V24, CMS/HCC V28) Depression, unspecified BASIC METABOLIC PANEL Routine 11/19/2024 10:52 AM EDT Unspecified dementia, unspecified severity, without behavioral disturbance, psychotic disturbance, mood disturbance, and anxiety (CMS/HCC V24, [facility] V28) Depression, unspecified documented in this encounter Results * (ABNORMAL) Basic metabolic panel (11/19/2024 10:52 AM EDT) Sodium 137 133 - 145 mmol/L LAB CHEMISTRY METHOD 11/19/2024 1:36 PM [facility] Potassium 3.8 3.5 - 5.5 mmol/L LAB CHEMISTRY METHOD 11/19/2024 1:36 PM [facility] Chloride 102 96 - 110 [...] MD LAB BLOOD ORDERABLES Final R esult [facility] [address] [place] [address], * (ABNORMAL) Complete blood count (11/19/2024 10:52 AM EDT) [facility] WBC 8.7 4.8 - 10.8 K/mcL LAB HEMETOLOGY METHOD 11/19/2024 1:19 PM EDT [facility] RBC 4.80 3.80 - 4.80 M/mcL LAB HEMETOLOGY METHOD 11/19/2024 1:19 PM EDT [facility] Hemoglobin 13.8 11.5 - 16.0 g/dL LAB HEMETOLOGY METHOD 11/19/2024 1:19 PM EDT [facility] Hematocrit 43.7 35.0 - 47.0 % LAB HEMETOLOGY METHOD 11/19/2024 1:19 PM EDT [facility] MCV 91.4 79.0 - 98.0 FL LAB HEMETOLOGY METHOD 11/19/2024 1:19 PM EDT [facility] MCH 28.9 27.0 - 32.0 pcg LAB HEMETOLOGY METHOD 11/19/2024 1:19 PM EDT [facility] MCHC 31.6(L) 32.0 - 37.0 g/dL LAB HEMETOLOGY METHOD 11/19/2024 1:19 PM EDT [facility] RDW 13.0 11.0 - 15.0 % LAB HEMETOLOGY METHOD 11/19/2024 1:19 PM EDT [facility] Platelets 470(H) 130 - 400 K/mcL LAB HEMETOLOGY METHOD 11/19/2024 1:19 PM EDT [facility] MPV 9.2 7.0 - 11.0 FL LAB HEMETOLOGY METHOD 11/19/2024 1:19 PM EDT [facility] NRBC 0.0 <1.0 % LAB HEMETOLOGY METHOD 11/19/2024 1:19 PM EDT [facility] NRBC Absolute 0.00 <0.10 K/mcL LAB HEMETOLOGY METHOD 11/19/2024 1:19 PM EDT [facility] Blood Venous blood specimen / Unknown Venipuncture / Unknown 11/19/2024 10:52 AM EDT 11/19/2024 12:59 PM EDT us Darrin Ramsey MD LAB BLOOD ORDERABLES Final R esult [facility] [address] [place] [address], documented in this encounter Visit Diagnoses Diagnosis Unspecified dementia, unspecified severity, without behavioral disturbance, psychotic disturbance, mood disturbance, and anxiety (CMS/HCC V24, CMS/HCC V28) Depression, unspecified documented in this encounter Care Teams Payroll Bookkeeper Relationship Specialty Start Date End Date Ghazal Hong MD [address] [place] [address] [place] [address] PCP - General Internal Medicine 12/17/24 documented as of this encounter
--- OUTSIDE RECORDS SUMMARY | 2025-02-09 14:31 | XMS_ITS ---
Author Organization [address] Address [address] [place] [phone] Phone Care Team Providers Care Pest Control Service Technician Name Role Phone Ghazal Hong MD Primary Care Provider [phone] Program of All-Inclusive Care for the Elderly Status:Intake (Enrolling) Start date:12/17/2024 Enrollment reason:Re-Engaged Lost Lead Sales Initiative Related social drivers of health:Housing Instability, TH Health Literacy, Financial Risk, Transportation, Social Isolation, Food Risk Overview This episode will track PACE documentation. Case Team Name Relationship Phone Rosaura Morales Auto Air Conditioning Mechanic(Responsibl e Staff) [phone] Gauri Dorado Dry Transfer Worker [phone] Continued Care and Services Coordination
== END 2025-02-09 14:13 | disposition home or self-care (01) ==
LOC: HO.HUSH 13:11
PROVIDERS: PCP Internal Medicine; Visit Provider Nurse Practitioner Family
DX: N39.0 Urinary tract infection, site not specified (principal); Z13.9 Encounter for screening, unspecified
CPT/HCPCS: 99213; G2211

== ENCOUNTER 2025-02-09 13:10 | Outpatient (REF) | payer MEDICARE, SELFPAY | END 2025-02-09 13:11 | disposition home or self-care (01) | LOC: HO.LAB 13:10 | PROVIDERS: PCP Internal Medicine; Visit Provider Nurse Practitioner Family | DX: N39.0 Urinary tract infection, site not specified (principal); Z13.89 Encounter for screening for other disorder | CPT/HCPCS: 81003; 88112; 99212 ==

== ENCOUNTER 2025-02-11 12:45 | Outpatient (AMB) | payer MEDICARE, SELFPAY ==
--- OUTSIDE RECORDS SUMMARY | 2025-02-11 13:09 | XMS_ITS | Clinical Summary ---
Author Organization [address] [facility] Address [address] [place] [address] Phone Care Team Providers Care Link Fabric Machine Operator Name Role Phone Ghazal Hong MD Primary Care Provider [phone] Allergies No known active allergies Active Problems Problem Noted Date Diagnosed Date Encounter for medical assessment 01/05/2025 Moderate dementia with psych otic disturbance ([facility] V24, [facility] V28) 01/05/2025 Visual hallucinations 01/05/2025 At high risk for elopement 01/05/2025 No known problems 07/15/2024 Encounters Date Type Department Care Team Description 01/05/2025 11:30 AM EDT PACE Assessment [facility] Physical Therapy [address] [place] [address] Haritha Morataya, ZAKI Dementia, unspecified dementia severity, unspecified dementia type, unspecified whether behavioral, psychotic, or mood disturbance or anxiety ([facility] V24, [facility] V28) (Primary Dx) 01/05/2025 10:30 AM EDT Clinical Support [facility] [address] [place] [address] Nalini Catalan MD Encounter for medical assessment (Primary Dx); 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, with psychotic disturbance ([facility] V24, [facility] V28); Visual hallucinations; At high risk for elopement; Caregiver not readily available 11/19/2024 Lab Requisition [facility] - Main Lab [address] [facility] [place] [address] Darrin Ramsey MD Unspecified dementia, unspecified severity, without behavioral disturbance, psychotic disturbance, mood disturbance, and anxiety ([facility] V24, [facility] V28); Depression, unspecified from Last 3 Months Surgical History Surgery Date Site/Laterality Comments CHOLECYSTECTOMY PROCEDURE: LAPAROSCOPY, CHOLECYSTECTOMY Medical History Medical History Date Comments Alzheimer dementia ([facility] V24, [facility] V28) Depression At high risk for [...] disturbance, psychotic disturbance, mood disturbance, and anxiety ([facility] V24, [facility] V28) Depression, unspecified COMPLETE BLOOD COUNT Routine 11/19/2024 10:52 AM EDT Unspecified dementia, unspecified severity, without behavioral disturbance, psychotic disturbance, mood disturbance, and anxiety ([facility] V24, [facility] V28) Depression, unspecified HEPATITIS C SCREENING Routine 03/20/2014 from Last 3 Months or Most Recently Relevant to Health Maintenance Results * (ABNORMAL) Complete blood count (11/19/2024 10:52 AM EDT) WBC 8.7 4.8 - 10.8 K/mcL LAB HEMETOLOGY METHOD 11/19/2024 1:19 PM EDT [facility] RBC 4.80 3.80 - 4.80 M/mcL LAB [facility] Hemoglobin 13.8 11.5 - 16.0 g/dL LAB HEMETOLOGY METHOD 11/19/2024 1:19 PM [facility] Hematocrit 43.7 35.0 - 47.0 % LAB HEMETOLOGY METHOD 11/19/2024 1:19 PM [facility] MCV 91.4 79.0 - 98.0 FL LAB HEMETOLOGY METHOD 11/19/2024 1:19 PM EDT [facility] MCH 28.9 27.0 - 32.0 pcg LAB HEMETOLOGY METHOD 11/19/2024 1:19 PM EDT [facility] MCHC 31.6(L) 32.0 - 37.0 g/dL LAB HEMETOLOGY METHOD 11/19/2024 1:19 PM EDT [facility] RDW 13.0 11.0 - 15.0 % LAB HEMETOLOGY METHOD 11/19/2024 1:19 PM EDT [facility] Platelets 470(H) 130 - 400 K/mcL LAB HEMETOLOGY METHOD 11/19/2024 1:19 PM EDT [facility] MPV 9.2 7.0 - 11.0 FL LAB HEMETOLOGY METHOD 11/19/2024 1:19 PM EDT [facility] NRBC 0.0 <1.0 % LAB HEMETOLOGY METHOD 11/19/2024 1:19 PM EDT [facility] NRBC Absolute 0.00 <0.10 K/mcL LAB HEMETOLOGY METHOD 11/19/2024 1:19 PM EDT [facility] Blood Venous blood specimen / Unknown Venipuncture / Unknown 11/19/2024 10:52 AM EDT 11/19/2024 12:59 PM EDT us Darrin Ramsey MD LAB BLOOD ORDERABLES Final R esult [facility] [address] [place] [address], * (ABNORMAL) Basic metabolic panel (11/19/2024 10:52 AM EDT) Sodium 137 133 - 145 mmol/L LAB CHEMISTRY METHOD 11/19/2024 1:36 PM EDT [facility] Potassium 3.8 3.5 - 5.5 mmol/L LAB CHEMISTRY METHOD 11/19/2024 1:36 PM T [facility] Chloride 102 96 - 110 mmol/L LAB CHEMISTRY METHOD 11/19/2024 1:36 PM [facility] CO2 28 21 - 32 mmol/L LAB CHEMISTRY METHOD 11/19/2024 1:36 PM [facility] Anion Gap 7 3 - 11 LAB CHEMISTRY METHOD 11/19/2024 1:36 PM [facility] Glucose 109(H) 70 - 100 mg/dL LAB CHEMISTRY METHOD 11/19/2024 1:36 PM [facility] BUN 9 5 - 25 mg/dL LAB CHEMISTRY METHOD 11/19/2024 1:36 PM [facility] Creatinine 0.83 0.50 - 1.10 mg/dL LAB CHEMISTRY METHOD 11/19/2024 1:36 PM [facility] eGFR 75 >=60 mL/min/1. 73m2 LAB CHEMISTRY METHOD 11/19/2024 1:36 PM [facility] Comment:Calculation based on the Chronic Kidney Disease Epidemiology Collaboration (CKD-EPI) equation refit without adjustment for race. BUN/Creatinine Ratio 10.8 LAB CHEMISTRY METHOD 11/19/2024 1:36 PM [facility] Calcium 9.0 8.5 - 10.5 mg/dL LAB CHEMISTRY METHOD 11/19/2024 1:36 PM [facility] Blood Venous blood specimen / Unknown Venipuncture / Unknown 11/19/2024 10:52 AM EDT 11/19/2024 12:59 PM EDT us Darrin Ramsey MD LAB BLOOD ORDERABLES Final R esult [facility] [address] [place] [address], [place] [phone] * Hepatitis C Screening (03/20/2014) Hepatitis C Screening Abstracted Historical Provider HEALTH MAINTENANCE Final Result from Last 3 Months or Most Recently Relevant to Health [place] [address] [facility] [place] [address] Advance Directives Documents on File Type Date Recorded Patient Setter Helper Expl anation Advance Directives and Living Will 01/13/2025 9:55 AM 12/08/2024 HEALTH CAR E PROXY Care Teams Link Fabric Machine Operator Relationship Specialty Start Date End Date Ghazal Hong MD [address] [place] [address] [place] [address] PCP - General Internal Medicine 12/17/24
--- OUTSIDE RECORDS SUMMARY | 2025-02-11 13:09 | XMS_ITS ---
Author Organization [address] Address [address] [place] [phone] Phone Care Team Providers Care Retail Department Supervisor Name Role Phone Ghazal Hong MD Primary Care Provider [phone] Program of [facility]ly Status:Did Not Enroll (Closed) Start date:12/17/2024 Enrollment reason:Re-Engaged Lost Lead Sales Initiative End date:02/10/2025 Close reason:Admitted to higher level of care Related social drivers of health:Housing Instability, TH Health Literacy, Financial Risk, Transportation, Social Isolation, Food Risk Overview This episode will track PACE documentation. Continued Care and Services Coordination
--- OUTSIDE RECORDS SUMMARY | 2025-02-11 13:09 | XMS_ITS | Encounter Summary ---
Author Organization [facility] Address [address] [place] [address] Care Team Providers Care Maintenance Foreman Name Role Phone Ghazal Hong MD Primary Care Provider [phone] Encounter Details Date Type Department Care Team (Late st Contact Info) Description 11/19/2024 Lab Requisition [facility] - Main Lab [address] [facility] [place] [address] Darrin Ramsey MD [address] [place] [address] Unspecified dementia, unspecified severity, without behavioral disturbance, [...] disturbance, mood disturbance, and anxiety (CMS/HCC V24, [facility] V28) Depression, unspecified documented in this encounter Results * (ABNORMAL) Basic metabolic panel (11/19/2024 10:52 AM EDT) Sodium 137 133 - 145 mmol/L LAB CHEMISTRY METHOD 11/19/2024 1:36 PM [facility] Potassium 3.8 3.5 - 5.5 mmol/L LAB CHEMISTRY METHOD 11/19/2024 1:36 PM [facility] Chloride 102 96 - 110 mmol/L LAB CHEMISTRY METHOD 11/19/2024 1:36 PM [facility] CO2 28 21 - 32 mmol/L LAB CHEMISTRY METHOD 11/19/2024 1:36 PM [facility] Anion Gap 7 3 - 11 LAB CHEMISTRY METHOD 11/19/2024 1:36 PM [facility] Glucose 109(H) 70 - 100 mg/dL LAB CHEMISTRY METHOD 11/19/2024 1:36 PM [facility] BUN 9 5 - 25 mg/dL LAB CHEMISTRY METHOD 11/19/2024 1:36 PM [facility] Creatinine 0.83 0.50 - 1.10 mg/dL LAB CHEMISTRY METHOD 11/19/2024 1:36 PM [facility] eGFR 75 >=60 mL/min/1. 73m2 LAB CHEMISTRY METHOD 11/19/2024 1:36 PM [facility] Comment:Calculation based on the Chronic Kidney Disease Epidemiology Collaboration (CKD-EPI) equation refit without adjustment for race. BUN/Creatinine Ratio 10.8 LAB CHEMISTRY METHOD 11/19/2024 1:36 PM [facility] Calcium 9.0 8.5 - 10.5 mg/dL LAB CHEMISTRY METHOD 11/19/2024 1:36 PM [facility] Blood Venous blood specimen / Unknown Venipuncture / Unknown 11/19/2024 10:52 AM EDT 11/19/2024 12:59 PM EDT us Darrin Ramsey MD LAB BLOOD ORDERABLES Final R esult [facility] [address] [place] [address], * (ABNORMAL) Complete blood count (11/19/2024 10:52 AM EDT) [facility] WBC 8.7 4.8 - 10.8 K/mcL LAB HEMETOLOGY METHOD 11/19/2024 1:[address] [facility] RBC 4.80 3.80 - 4.80 M/mcL LAB HEMETOLOGY METHOD 11/19/2024 1:[address] [facility] Hemoglobin 13.8 11.5 - 16.0 g/dL LAB HEMETOLOGY METHOD 11/19/2024 1:[address] [facility] Hematocrit 43.7 35.0 - 47.0 % LAB HEMETOLOGY METHOD 11/19/2024 1:[address] [facility] MCV 91.4 79.0 - 98.0 [...] R esult [facility] [address] [place] [address], documented in this encounter Visit Diagnoses Diagnosis Unspecified dementia, unspecified severity, without behavioral disturbance, psychotic disturbance, mood disturbance, and anxiety (CMS/HCC V24, CMS/HCC V28) Depression, unspecified documented in this encounter Care Teams Maintenance Foreman Relationship Specialty Start Date End Date Ghazal Hong MD [address] [place] [address] [place] [address] PCP - General Internal Medicine 12/17/24 documented as of this encounter
--- NOTE | 2025-02-11 13:14 | A.OFFVIS_ITS ---
Vital Signs 02/11/25 13:15 Height 5 ft 1 in Weight 129 lb BMI 24.4 BP 130/80 Blood Pressure Location Rt brachial Position Sitting Intake Visit Reasons: 3m follow up Clinical Laboratory Scientist Required: No Accompanied by: Daughter Allergies codeine Allergy (Verified 02/11/25 13:17) Unknown HPI Comments Details: 69y/o female comes for further management of dementia with behavior disturbances. She is accompanied by her daughter Diana who helps with history. The patient lives with her 80 years old who is the main bank operations officer and says they would like a home-health aide or VNA to assist with his 's daily care. She started having short term memory issues in 2017, she misplaces things in the house, and had difficulty following conversations, will get confused easily. She has declined significantly since she was seen by Dr. Chand and was diagnosed with Dementia. She has a positive family history of dementia with mother, 2 sisters, and 1 brother. she developed severe behavioral issues due to UTI, which still persists. She was hospitalized in a behavior psych unit November 2024. She still has hallucinations, mainly auditory only, with self talk for hours causing her to lose her voice, and she denies VH. She has excessive sleepiness due to medications. RLS symptoms. She has pins, needles and an uncomfortable sensation in her legs bilaterally at night, with sun-downing she feels worse, more anxious and restless. and pacing, aggressive behavior, with exit seeking strategies. She thinks her son in law is going to kill the grand kids. She thinks the food is poisoned. She needs help with all her ADLS dressing, showering, eating, cooking, laundry etc.Re-direction, she is able to complete some tasks with supervision and redirection sometimes. She is still able to make her bed, and do dishes when instructed. Denies any falls. Denies depression, constipation, her diet is usually pretty healthy and she stays active all day. [employer] therapy helps her to relax. She is being managed by her psychiatrist and taking the following meds: escitalopram oxalate seroquel 25mg po Risperidone 0.5mg po trazadone 50mg po daily at bedtime. [facility] Medical History Extrapyramidal and movement disorder Alzheimer's dementia Alzheimer's dementia Depression Anxiety Surgical History Hx of cholecystectomy Family History Mother Alzheimer's dementia HTN (hypertension) Sister Alzheimer's dementia Father Cardiovascular disease Other FH: mental illness Substance abuse Social History Household Members: Spouse Housing: House Unable to assess alcohol history related to: Unknown Alcohol intake: never Patient Tobacco Use Status: Never used Tobacco e-Cigarette/Vaping Use: Never Used Second Hand Smoke Exposure: No service: No Current occupational status: retired Cognitive needs: Yes (Alzheimers) Hearing needs: No Vision needs: Yes Review of Systems Neuro Reports confusion Psych Reports confusion Physical Exam Vital Signs: Last Vital Signs BP 130/80 02/11/25 13:15 BMI result Body Mass Index 24.4 Const General: cooperative, healthy appearing, comfortable and confusion Nutritional Appearance: average body habitus Orientation/consciousness: confusion Eyes Pupils: Equal, round and reactive pupils present Neuro Other: decreased facial expression and blink Tremors -meet UE postural and lE, finger to nose, confused. General: tone normal, moves all extremities and confusion Cranial nerves: Yes Facial sensation intact/muscles of mastication intact, Yes Equal, round and reactive pupils present, Yes Bilaterally intact EOM present, Yes Nystagmus not present, Yes Normal facial strength present, Yes Midline tongue present, Yes Ability to bilaterally rotate head present and Yes Ability to bilaterally elevate shoulders present Cognition (Neuro): abnormal cognition Gait exam (Neuro): Normal gait present Motor exam (neuro): 5/5 motor strength present throughout and Normal motor muscle tone present throughout Coordination: [id number] test normal Psych Appearance: other Mental Status: other (confused) Speech and movement: Pressured speech present Affect: Anxious affect present Thought process: Loose association thought process present Insight: Poor insight present (Psych) Judgement: Poor judgement present (Psych) Assessment & Plan Assessment & Plan (1) Alzheimer's dementia: Code(s): G30.9 - Alzheimer's disease, unspecified; F02.80 - Dementia in other diseases classified elsewhere, unspecified severity, without behavioral disturbance, psychotic disturbance, mood disturbance, and anxiety Category: Medical Qualifiers: Alzheimer's disease onset: late onset Dementia severity: severe Dementia behavioral or psychological symptom: with psychotic disturbance Qualified Code(s): G30.1 - Alzheimer's disease with late onset; F02.C2 - Dementia in other diseases classified elsewhere, severe, with psychotic disturbance (2) Psychosis: Comment: Auditory hallucinations - is on olanzapine Code(s): F29 - Unspecified psychosis not due to a substance or known physiological condition Category: Medical Qualifiers: Psychosis type: brief psychotic disorder Qualified Code(s): F23 - Brief psychotic disorder (3) Depression, major, in partial remission: Comment: Ecitalpram Code(s): F32.4 - Major depressive disorder, single episode, in partial remission Category: Medical Qualifiers: Major depression recurrence: recurrent Qualified Code(s): F33.41 - Major depressive disorder, recurrent, in partial remission Plan VNA services requested by daughter to manage mothers aggressive behavior, father is 80 and unable. APO E4 testing for family risk assessment of dementia. Michael or Alex trial?patient education provided today.Labs reviewed with daughter and patient today B12, tsh, vit d, APO E4 testing Cognitive decline start memantine 28mg po daily. A/H continue risperidone, queitapine, olanzapine, for anxiety exitalopram, and f/u with therapist will increase next time if symptoms are not improved. Sleep difficulties Trazadone 100mg Orders: Orders Complete Blood Count no Diff Today F23 - Brief psychotic disorder, F33.41 - Major depressive disorder, recurrent, in partial remission Lipid Panel with Reflex Today F23 - Brief psychotic disorder, F33.41 - Major depressive disorder, recurrent, in partial remission Vitamin D 25-OH Total Today F23 - Brief psychotic disorder, F33.41 - Major depressive disorder, recurrent, in partial remission TSH reflex Free T4 Today F23 - Brief psychotic disorder, F33.41 - Major depressive disorder, recurrent, in partial remission Homocysteine Today F23 - Brief psychotic disorder, F33.41 - Major depressive disorder, recurrent, in partial remission, G47.9 - Sleep disorder, unspecified, R53.83 - Other fatigue Other Ref Test - Misc Today F02.80 - Dementia in other diseases classified elsewhere, unspecified severity, without behavioral disturbance, psychotic disturbance, mood disturbance, and anxiety, G30.9 - Alzheimer's disease, unspecified Comprehensive Met. Panel Today F23 - Brief psychotic disorder, F33.41 - Major depressive disorder, recurrent, in partial remission Vitamin B6 Today F23 - Brief psychotic disorder, F33.41 - Major depressive disorder, recurrent, in partial remission Vitamin B12 and Folate Today F23 - Brief psychotic disorder, F33.41 - Major depressive disorder, recurrent, in partial remission Vitamin B1 Today F23 - Brief psychotic disorder, F33.41 - Major depressive disorder, recurrent, in partial remission Methylmalonic Acid Today F23 - Brief psychotic disorder, F33.41 - Major depressive disorder, recurrent, in partial remission, G47.9 - Sleep disorder, unspecified, R53.83 - Other fatigue Ferritin Today F23 - Brief psychotic disorder, F33.41 - Major depressive disorder, recurrent, in partial remission Hemoglobin A1c Today F23 - Brief psychotic disorder, F33.41 - Major depressive disorder, recurrent, in partial remission Coding Level of Care Code Est Pt Level 4 (13166) Diagnoses 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
[2025-02-11 13:15] VITALS: BP 130/80; BMI 24.4
== END 2025-02-11 13:55 | disposition home or self-care (01) ==
LOC: HO.HSMS 12:45
PROVIDERS: PCP Internal Medicine; Visit Provider Physician Assistant Medical
DX: G30.1 Alzheimer's disease with late onset (principal); F02.C2 Dementia in other diseases classified elsewhere, severe, with psychotic disturbance; F23 Brief psychotic disorder; F33.41 Major depressive disorder, recurrent, in partial remission
CPT/HCPCS: 99214

== ENCOUNTER → 2025-02-11 12:45 | Outpatient (BNVA) | payer MEDICARE, SELFPAY | PROVIDERS: PCP Internal Medicine; Visit Provider Physician Assistant Medical | DX: F33.41 Major depressive disorder, recurrent, in partial remission (principal); F23 Brief psychotic disorder; G30.1 Alzheimer's disease with late onset; F02.C2 Dementia in other diseases classified elsewhere, severe, with psychotic disturbance | CPT/HCPCS: 99212 ==

== ENCOUNTER 2025-05-12 13:20 | Outpatient (REF) | payer MEDICARE, MEDICAID, SELFPAY | END 2025-05-12 13:21 | disposition home or self-care (01) | LOC: HO.LAB 13:20 | PROVIDERS: PCP Internal Medicine; Visit Provider Nurse Practitioner Family | DX: N39.0 Urinary tract infection, site not specified (principal) | CPT/HCPCS: 51798; 81003; 88112; 99212 ==

== ENCOUNTER 2025-05-12 13:20 | Outpatient (AMB) | payer MEDICARE, MEDICAID, SELFPAY ==
--- NOTE | 2025-05-12 13:26 | A.OFFVIS_ITS ---
Intake Visit Reasons: 3m/PVR Intake Note: Patient is present for 3M/PVR Urology Medication:VITAMIN C,METHENAMINE HIPPURATE Antibiotic Allergy:NONE Blood Thinner:NONE Todays PVR:0ML'S Lockstitch Coat Joiner Required: No Allergies codeine Allergy (Verified 05/12/25 14:10) Unknown Medication List - Last Reconciled 05/12/25 by JULIO MarquezP-BC ascorbic acid (vitamin C) 1 g PO DAILY 90 days cane As directed, 999 days escitalopram oxalate 10 mg PO DAILY memantine 28 mg PO DAILY nitrofurantoin macrocrystal 50 mg PO BEDTIME 90 days quetiapine 50 mg PO BEDTIME risperidone 0.5 mg PO BEDTIME trazodone 50 - 100 mg PO BEDTIME PRN HPI Comments Details: Irma is a very pleasantly confused 70-year-old female patient of who was accompanied by her daughter/stock patcher. She has a past medical history of depression, anxiety, and Alzheimer's dementia. She presents to the office today for follow-up of her recurrent urinary tract infections. In discussion with the patient and her daughter today she denies having had any bothersome urinary issues since her last office visit here. She denies having any UTIs and or UTI like symptoms since her last office visit here. Daughter does report patient has been somewhat noncompliant in taking methenamine as she has found it difficult to swallow. She is enquiring alternative management for recurrent urinary tract infections. In office urinalysis results reviewed with the patient today. PVR 0 mL. Previous workup has included a retroperitoneal ultrasound 01/09 noting bilateral kidneys with no calculi, lesions, and or hydronephrosis. The urinary bladder is unremarkable. Postvoid bladder volume was estimated at 11 mL. Patient's daughter who provides much of today's history as patient is forgetful reports patients typical UTI like symptoms are change in mental status as she does not typically present with any lower urinary tract symptoms. She reports at times it is difficult as patient is suffers from dementia. Urine cultures 10/09 no growth, 12/09 > 100,000 cfu/ml Mixed bacterial arya characteristic of urogenital contamination, 05/11 > 100,000 cfu/ml Mixed bacterial arya characteristic of urogenital contamination, 11/09 no growth, 01/09 no growth We discussed at length potential causes of recurrent urinary tract infections and or lower urinary tract symptoms. We discussed trial of Vagifem and or Estrace cream however daughter does not believe this will be possible at this time. All questions were answered. She denies any issues with her bowels. She otherwise offers no other issues or concerns at this time. [facility] Medical History Extrapyramidal and movement disorder Alzheimer's dementia Alzheimer's dementia Depression Anxiety Surgical History Hx of cholecystectomy Family History Mother Alzheimer's dementia HTN (hypertension) Sister Alzheimer's dementia Father Cardiovascular disease Other FH: mental illness Substance abuse Social History Household Members: Spouse Housing: House Alcohol intake: never Patient Tobacco Use Status: Never used Tobacco e-Cigarette/Vaping Use: Never Used Second Hand Smoke Exposure: No service: No Current occupational status: retired Cognitive needs: Yes (Alzheimers) Hearing needs: No Vision needs: Yes Review of Systems Const Unobtainable due to mental condition Physical Exam Const General: cooperative, healthy appearing, comfortable, no acute distress, well developed, alert and awake Nutritional Appearance: average body habitus Orientation/consciousness: oriented to person Limitations: no limitations HEENT Head: Yes normal to inspection, Yes normocephalic and Yes atraumatic Ears: hearing grossly normal bilaterally Eyes General: appearance normal, both eyes and all related structures Neck Neck: Yes normal visual inspection and Yes trachea midline Chest Chest palpation & inspection: normal inspection of the chest Resp Effort & Inspection: normal respiratory effort and able to speak in complete sentences Cardio Rate: regular rate GI Inspection: Yes normal to inspection General: Yes no CVA tenderness Back/Spine/Pelvis Back: no CVA tenderness Skin General skin exam: no rashes or lesions noted Neuro General: oriented to person Extrem General: Yes normal to inspection Psych Appearance: grossly normal and well kempt Mental Status: mental status grossly normal Speech and movement: Normal speech and movement present and Clear speech present Affect: normal affect Attitude: cooperative Thought process: Normal thought process present Thought content: Normal thought content present Insight: Fair insight present (Psych) Judgement: Fair judgement present (Psych) Office Procedures Post Void Residual Post Residual Void Post Void Residual (PVR): 0 [id number] Void Residual by ultrasound Results AMB Urinalysis, Automated UA Leukoctes 70 Lino/uL Last Edit by KAREEM Cifuentes on 05/12/25 13:52 UA Nitrite Negative Last Edit by Alie Bowre [facility] on 05/12/25 13:52 UA Urobilinogen 0.2 mg/dL Last Edit by Alie Bower [facility] on 05/12/25 13:5 2 UA Protein 0 mg/dL Last Edit by Alie Bower [facility] on 05/12/25 13:52 UA pH 6.0 Last Edit by Alie Bower [facility] on 05/12/25 13:52 UA Blood 25 Gus/uL Last Edit by Alie Bower [facility] on 05/12/25 13:52 UA Specific [place] 1.010 Last Edit by Alie Bower [facility] [place] on 05/12/25 13: 52 UA Ketone Negative Last Edit by Alie Bower [facility] on 05/12/25 13:52 UA Bilirubin 0 mg/dL Last Edit by Alie Bower [facility] on 05/12/25 13:52 UA Glucose 0 mg/dL Last Edit by Alie Bower [facility] on 05/12/25 13:52 Results Reviewed Results Reviewed: Laboratory Last Values Urine pH (Auto) 6.0 05/12/25 13:51 Specific [place] (Auto) 1.010 05/12/25 13:51 Urine Protein (Auto) 0 mg/dL 05/12/25 13:51 Glucose (UA)(Auto) 0 mg/dL 05/12/25 13:51 Urine Ketones (Auto) Negative 05/12/25 13:51 Urine Blood (Auto) 25 Gus/uL 05/12/25 13:51 Urine Nitrite (Auto) Negative 05/12/25 13:51 Urine Bilirubin (Auto) 0 mg/dL 05/12/25 13:51 Urine Urobilinogen (Auto) 0.2 mg/dL 05/12/25 13:51 Leukocyte Esterase (Auto) 70 Lino/uL 05/12/25 13:51 Assessment & Plan Assessment & Plan (1) Recurrent UTI: Code(s): N39.0 - Urinary tract infection, site not specified Category: Medical Plan In office urinalysis results reviewed the patient today; as noted above; will send for urine cytology. PVR 0mls Patient and family currently deny any bothersome urinary issues or concerns. She reports be happy with current voiding parameters. Start methenamine and vitamin-C. Start low-dose Macrobid as discussed and prescribed. We did discuss at length potential causes of recurrent urinary tract infections as well as further treatment options and risks and benefits of these treatment options. We did discussed potential near future in office cystoscopy if symptoms arise. All questions were answered. Discussed UTI prevention with D mannose supplement, vitamin-C, increasing fluid intake, behavioral therapy with timed voiding, perineal hygiene and postcoital voiding, and management of constipation with stool softeners and increased fiber intake. Follow-up in 3 months with PVR; or sooner with any issues, concerns, and or questions. Orders: Orders Urine Cytology Today R31.29 - Other microscopic hematuria AMB Urinalysis Automated Today Z13.9 - Encounter for screening, unspecified Medications: New nitrofurantoin macrocrystal must administer with a meal/food 50 mg PO BEDTIME 90 caps 1RF 90 days N39.0 - Urinary tract infection, site not specified Refilled ascorbic acid (vitamin C) 1 g PO DAILY 90 tabs 1RF 90 days N39.0 - Urinary tract infection, site not specified Discontinued methenamine hippurate Discontinued Reason: Doctor's Order 1 g PO DAILY 90 tabs 1RF 90 days N39.0 - Urinary tract infection, site not specified Patient Instructions: The patient had an opportunity to ask questions regarding the treatment plan. All questions were answered. Physical exam, labs, and imaging were discussed and reviewed in detail. As well as risks, benefits, and discussion of treatment ch oices. No major barriers to understanding were identified. The patient expressed understanding and agreement with the above treatment plan. The patient was made aware they should contact our office by phone for worsening of their current condition, the appearance of new symptoms, or with any questions or concerns. Compliance is encouraged with any medications and follow up testing that is ordered. It is a privilege to be allowed the opportunity to participate in? your urological care.? Again, if you have any questions or concerns If you have any questions or concerns please do not hesitate to contact me. The office is [phone]. This note is constructed using voice recognition software. While every effort has been made to ensure accuracy social worker assistant errors may have been included. Yours sincerely, DAVID Marquez Coding Level of Care Code Est Pt Level 4 (29363) Complex visit Add On G2211 Diagnoses Recurrent UTI N39.0 CPT Codes Post Residual Void - PVR CPT Code: 36039-Uxdx Void Residual by ultrasound ([id number])
--- OUTSIDE RECORDS SUMMARY | 2025-05-12 17:11 | XMS_ITS | Encounter Summary ---
Author Organization [facility] Address [address] [place] [address] Care Team Providers Care Crossing Watchman Name Role Phone Ghazal Hong MD Primary Care Provider [phone] Encounter Details Date Type Department Care Team (Late st Contact Info) Description 11/19/2024 Lab Requisition [facility] - Main Lab [address] [facility] [employer] [place] [address] Darrin Ramsey MD [address] [place] [address] Unspecified dementia, unspecified severity, without behavioral disturbance, [...] disturbance, mood disturbance, and anxiety (CMS/HCC V24, [facility] V28) Depression, unspecified documented in this encounter [...] MD LAB BLOOD ORDERABLES Final R esult [facility] [address] [place] [address], * (ABNORMAL) Complete blood count (11/19/2024 10:52 AM EDT) [facility] WBC 8.7 4.8 - 10.8 K/mcL LAB HEMETOLOGY METHOD 11/19/2024 1:19 PM EDT [facility] RBC 4.80 3.80 - 4.80 M/mcL LAB HEMETOLOGY METHOD 11/19/2024 1:19 PM EDT [facility] Hemoglobin 13.8 11.5 - 16.0 g/dL LAB HEMETOLOGY METHOD 11/19/2024 1:19 PM EDT [facility] Hematocrit 43.7 35.0 - 47.0 % LAB HEMETOLOGY METHOD 11/19/2024 1:19 PM EDT [facility] MCV 91.4 79.0 - 98.0 FL LAB HEMETOLOGY METHOD 11/19/2024 1:19 PM EDT [facility] MCH 28.9 27.0 - 32.0 pcg LAB HEMETOLOGY METHOD 11/19/2024 1:19 PM EDT [facility] MCHC 31.6(L) 32.0 - 37.0 g/dL LAB HEMETOLOGY METHOD 11/19/2024 1:19 PM EDT [facility] RDW 13.0 11.0 - 15.0 % LAB HEMETOLOGY METHOD 11/19/2024 1:19 PM EDT [facility] Platelets 470(H) 130 - 400 K/mcL LAB HEMETOLOGY METHOD 11/19/2024 1:19 PM EDT [facility] MPV 9.2 7.0 - 11.0 FL LAB HEMETOLOGY METHOD 11/19/2024 1:19 PM EDT [facility] NRBC 0.0 <1.0 % LAB HEMETOLOGY METHOD 11/19/2024 1:19 PM EDT [facility] NRBC Absolute 0.00 <0.10 K/mcL LAB HEMETOLOGY METHOD 11/19/2024 1:19 PM EDT [facility] Blood Venous blood specimen / Unknown Venipuncture / Unknown 11/19/2024 10:52 AM EDT 11/19/2024 12:59 PM EDT us Darrin Ramsey MD LAB BLOOD ORDERABLES Final R esult [facility] [address] [place] [address], documented in this encounter Visit Diagnoses Diagnosis Unspecified dementia, unspecified severity, without behavioral disturbance, psychotic disturbance, mood disturbance, and anxiety (CMS/HCC V24, CMS/HCC V28) Depression, unspecified documented in this encounter Care Teams Crossing Watchman Relationship Specialty Start Date End Date Ghazal Hong MD [address] [place] [address] [place] [address] PCP - General Internal Medicine 12/17/24 documented as of this encounter
--- OUTSIDE RECORDS SUMMARY | 2025-05-12 17:11 | XMS_ITS | Clinical Summary ---
Author Organization [address] [facility] Address [address] [place] [address] Phone Care Team Providers Care Hearing Healthcare Practitioner Name Role Phone Ghazal Hong MD Primary Care Provider [phone] Allergies No known active allergies Active Problems Problem Noted Date Diagnosed Date Encounter for medical assessment 01/05/2025 Moderate dementia with psych otic disturbance (CMS/[facility] V24, CMS/[facility] V28) 01/05/2025 Visual hallucinations 01/05/2025 At high risk for elopement 01/05/2025 No known problems 07/15/2024 Surgical History Surgery Date Site/Laterality Comments CHOLECYSTECTOMY PROCEDURE: LAPAROSCOPY, CHOLECYSTECTOMY Medical History Medical History Date Comments Alzheimer dementia (CMS/HCC V24, CMS/[facility] V28) Depression At high risk for [...] Last Done Comments Breast Cancer Screening 1955 Colorectal Cancer Screening: Colonoscopy 1955 DTaP,Tdap,and Td Vaccines (1 - Tdap) 1972 Pneumococcal Vaccine: 50+ Years (1 of 1 - PCV) 2003 Zoster Vaccines (1 of 2) 2003 Falls Risk Assessment 05/29/2024 Osteoporosis Screening (Bone Density Screening) 05/29/2024 Social Influencers of Health Screening 05/29/2024 Depression Screening 06/18/2024 COVID-19 Vaccine ( season) 2025 11/10/2021, 06/07/2021, 10/07/2020, Additional history exists Influenza Vaccine (#1) 2025 8, 04/03/2017, 03/16/2016, [...] C Screening (03/20/2014) Hepatitis C Screening Abstracted us Historical Provider HEALTH MAINTENANCE Final Result from Last 3 Months or Most Recently Relevant to Health Maintenance Insurance [facility] Advance Directives Documents on File Type Date Recorded Patient Type Inspector Expl anation Advance Directives and Living Will 01/13/2025 9:55 AM 12/08/2024 HEALTH CAR E PROXY Care Teams Hearing Healthcare Practitioner Relationship Specialty Start Date End Date Ghazal Hong MD [address] [place] [address] [place] [address] PCP - General Internal Medicine 12/17/24
== END 2025-05-12 14:20 | disposition home or self-care (01) ==
LOC: HO.HUSH 13:21
PROVIDERS: PCP Internal Medicine; Visit Provider Nurse Practitioner Family
DX: N39.0 Urinary tract infection, site not specified (principal); Z13.9 Encounter for screening, unspecified
CPT/HCPCS: 99214; G2211

== ENCOUNTER 2025-05-22 13:49 | Outpatient (AMB) | payer MEDICARE, MEDICAID, SELFPAY ==
--- NOTE | 2025-05-22 13:52 | MHC.OFFVIS ---
Vital Signs 05/22/25 13:53 Height 5 ft 1 in Weight 138 lb BMI 26.1 BP 100/64 Blood Pressure Location Lt brachial Position Sitting Pulse 96 Pulse Source Pulse Oximeter Pulse Oximetry (%) 98 Oxygen Delivery Method Room Air Intake Visit Reasons: 3 mo follow up Glass Selector Required: No Accompanied by: Daughter Allergies codeine Allergy (Verified 05/22/25 14:03) Unknown HPI Comments Details: 70y/o female comes for further management of dementia with behavior disturbances. She is accompanied by her daughter Diana who helps with history. The patient lives with her 80 year old who is her primary memory care program director and requests a home-health aide or VNA to assist with his 's daily care. She started having short term memory issues in 2017, she misplaces things in the house, and has difficulty following conversations, will get confused easily. She has declined significantly since she was seen by Dr. Chand and was diagnosed with Dementia. She has a positive family history of dementia with mother, 2 sisters, and 1 brother. she developed severe behavioral issues due to UTI, which still persists. She was hospitalized in a behavior psych unit November 2024. She still has hallucinations, mainly auditory with self talk for hours causing her to lose her voice, she denies VH. RLS symptoms. She has pins, needles and an uncomfortable sensation in her legs bilaterally at night, she has sun-downing, gets anxious and restless then paces, has aggressive behavior, with exit seeking strategies. She has paranoia thinks her son in law is going to kill the grand kids and the food is poisoned.She needs help with all her ADLS, dressing, showering, eating, cooking, cleaning, laundry etc. She needs redirection, and is able to complete some tasks with supervision and repetition. She is still able to make her bed, and do dishes when instructed, she follows commands well. Denies any falls. Denies depression, constipation, her appetite has decreased, she picks at her meals. She listens to Upper Sorbian music as it helps her to relax, and stays active all day as she likes to dance. She is being managed by her psychiatrist and takes her medication with applesause, pudding as she has difficulty swallowing pills. [facility] Medical History Extrapyramidal and movement disorder Alzheimer's dementia Alzheimer's dementia Depression Anxiety Surgical History Hx of cholecystectomy Family History Mother Alzheimer's dementia HTN (hypertension) Sister Alzheimer's dementia Father Cardiovascular disease Other FH: mental illness Substance abuse Social History Household Members: Spouse Housing: House Alcohol intake: never Patient Tobacco Use Status: Never used Tobacco e-Cigarette/Vaping Use: Never Used Second Hand Smoke Exposure: No service: No Current occupational status: retired Cognitive needs: Yes (Alzheimers) Hearing needs: No Vision needs: Yes Review of Systems Neuro Reports confusion Psych Reports confusion Physical Exam Vital Signs: Last Vital Signs Pulse 96 05/22/25 13:53 BP 100/64 05/22/25 13:53 Pulse Ox 98 05/22/25 13:53 Oxygen Delivery Method Room Air 05/22/25 13:53 BMI result Body Mass Index 26.1 Const General: cooperative, healthy appearing, comfortable and confusion Nutritional Appearance: average body habitus Orientation/consciousness: confusion Eyes Pupils: Equal, round and reactive pupils present Neuro Other: decreased facial expression and blink Tremors -meet UE postural and lE, finger to nose, confused. General: tone normal, moves all extremities and confusion Cranial nerves: Yes Facial sensation intact/muscles of mastication intact, Yes Equal, round and reactive pupils present, Yes Bilaterally intact EOM present, Yes Nystagmus not present, Yes Normal facial strength present, Yes Midline tongue present, Yes Ability to bilaterally rotate head present and Yes Ability to bilaterally elevate shoulders present Cognition (Neuro): abnormal cognition Gait exam (Neuro): Normal gait present Motor exam (neuro): 5/5 motor strength present throughout and Normal motor muscle tone present throughout Coordination: [id number] test normal Psych Appearance: other Mental Status: other (confused) Speech and movement: Pressured speech present Affect: Anxious affect present Thought process: Loose association thought process present Insight: Poor insight present (Psych) Judgement: Poor judgement present (Psych) Orientation Where are we (state) (county) (town or city) (hospital) (floor)?: state Attention & Calculation (CHOOSE ONE) Spell WORLD backwards (DLROW): 4 letters Recall Ask patient to repeat the 3 items from question #3.: object 1 and object 2 Language Show patient a wristwatch & ask what it is. Repeat for pencil.: watch and pencil Ask the patient to repeat the phrase 'No ifs, ands, or buts' after you.: incorrect (could be a language barrier) Ask the patient to 'take a piece of paper with their right hand' 'fold paper in half' 'place paper on floor': take paper in right hand, fold paper in half and place paper on floor Print the sentence 'CLOSE YOUR EYES' on a piece. If patient actually closes eyes then score.: followed written direction Score Score: 13 Results Reviewed Results Reviewed: MMSE is 13 today. Assessment & Plan Assessment & Plan (1) Alzheimer's dementia: Code(s): G30.9 - Alzheimer's disease, unspecified; F02.80 - Dementia in other diseases classified elsewhere, unspecified severity, without behavioral disturbance, psychotic disturbance, mood disturbance, and anxiety Category: Medical Qualifiers: Alzheimer's disease onset: late onset Dementia behavioral or psychological symptom: with psychotic disturbance Dementia severity: severe Qualified Code(s): G30.1 - Alzheimer's disease with late onset; F02.C2 - Dementia in other diseases classified elsewhere, severe, with psychotic disturbance (2) Psychosis: Comment: Auditory hallucinations - is on olanzapine Code(s): F29 - Unspecified psychosis not due to a substance or known physiological condition Category: Medical Qualifiers: Psychosis type: brief psychotic disorder Qualified Code(s): F23 - Brief psychotic disorder (3) Depression, major, in partial remission: Comment: Ecitalpram Code(s): F32.4 - Major depressive disorder, single episode, in partial remission Category: Medical Qualifiers: Major depression recurrence: recurrent Qualified Code(s): F33.41 - Major depressive disorder, recurrent, in partial remission (4) Forgetfulness: Code(s): R68.89 - Other general symptoms and signs Category: Medical (5) Anxiety about treatment: Code(s): R45.89 - Other symptoms and signs involving emotional state Category: Medical Plan HST r/o MIREILLE continue 100mg qpm of trazadone for sleep disturbances. MMSE 13/30 Moderate to severe cognitive impairment, MRI w/ or w/o contrast to compare if pt is amenable per daughter. VNA services requested by daughter to manage mothers assertive/ aggressive behavior, father is 80 and unable. Rexulti? MRI may take 2 0.5mg po Lorazepam for anxiety during MRI and pt requests open bay MRI at [facility] due to claustrophobia. APO E4 testing for family risk assessment of dementia Kisunla or Leqembi trial?patient education provided today.Labs reviewed with daughter and patient today B12, tsh, vit d, APO E4 testing. Cognitive decline continue with memantine 28mg po daily/ A/H continue risperidone, queitapine, olanzapine, for anxiety exitalopram, f/u with pscyhiatrist for dose titrations. Orders: Orders RT home sleep study 05/22/25 G47.19 - Other hypersomnia MR head/brain wo/w con 05/22/25 F02.C2 - Dementia in other diseases classified elsewhere, severe, with psychotic disturbance, G30.1 - Alzheimer's disease with late onset, R68.89 - Other general symptoms and signs Medications: New lorazepam (Ativan) MRI anxiety may take 0.5mg po (x2 tablets 30 min prior to procedure) 0.5 mg PO DAILY PRN 2 tabs 0RF anxiety during MRI R45.89 - Other symptoms and signs involving emotional state Patient Instructions: Sleep Hygiene provided: set a scheduled bedtime and wake time to help regulate the circadian rhythm and balance the release of pituitary hormones. Sleep in a dark room, temperatures below 68 degrees, and no devices n bed. Limit caffeinated products 6 hours prior to bed, and limit fluids 2-4 hours prior to bed. Gentle night yoga, diffusing essential oils, and playing soft music can be relaxing. 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
[2025-05-22 13:53] VITALS: BP 100/64; PULSE 96; O2SAT 98; BMI 26.1
== END 2025-05-22 15:03 | disposition home or self-care (01) ==
LOC: HO.HSMS 13:50
PROVIDERS: PCP Internal Medicine; Visit Provider Physician Assistant Medical
DX: G30.1 Alzheimer's disease with late onset (principal); F02.C2 Dementia in other diseases classified elsewhere, severe, with psychotic disturbance; F23 Brief psychotic disorder; F33.41 Major depressive disorder, recurrent, in partial remission; R68.89 Other general symptoms and signs; R45.89 Other symptoms and signs involving emotional state
CPT/HCPCS: 99214

== ENCOUNTER → 2025-05-22 13:49 | Outpatient (BNVA) | payer MEDICARE, MEDICAID, SELFPAY | PROVIDERS: PCP Internal Medicine; Visit Provider Physician Assistant Medical | DX: G30.1 Alzheimer's disease with late onset (principal); F02.C2 Dementia in other diseases classified elsewhere, severe, with psychotic disturbance; F23 Brief psychotic disorder; F33.41 Major depressive disorder, recurrent, in partial remission; R68.89 Other general symptoms and signs; R45.89 Other symptoms and signs involving emotional state; Z79.899 Other long term (current) drug therapy | CPT/HCPCS: 99212 ==